=== PATIENT | female | born 1995 | race African-American/Black ===

== ENCOUNTER 2017-12-26 12:08 | Emergency (ER) | payer BC ==
[2017-12-26 12:26] VITALS: BP 137/93
[2017-12-26 13:46] LABS: Bacteria,Urine 1+ /HPF (Negative); Bilirubin,Urine NEG (Negative); Blood,Urine LG (Negative); Color,Urine Yellow (Yellow); Mucus,Urine 1+ /HPF; Protein,Urine <15 mg/dL mg/dL (Negative); Urobilinogen,Urine < 2.0 mg/dL (<2.0)
[2017-12-26 13:47] LABS: HCG Qualitative,Urine Negative (Negative)
[2017-12-26] MEDS ORDERED: ZOFRAN ODT PO ONE (14:34)
[2017-12-26] MEDS ORDERED: TYLENOL PO ONE (14:34)
[2017-12-26] MEDS ORDERED: MACROBID PO ONE (14:35)
[2017-12-26] MEDS ORDERED: ULTRAM PO ONE (14:36)
--- NOTE | 2017-12-26 14:41 | Emergency Department Report ---
ED Abdominal Pain HPI - General Chief Complaint: Abdominal Pain Stated Complaint: ABD VAG BLEED Time Seen by Provider: 12/26/17 14:23 Source: patient Mode of arrival: Ambulatory Limitations: No Limitations - History of Present Illness Initial Comments: Patient is a 22-year-old female who is presenting with 1 week of vaginal bleeding that was painless until this morning when she started getting some suprapubic discomfort. Patient states she vomited once this morning as well. Patient states is the first menses she's had since having a miscarriage several months ago. Patient states the pain is in the suprapubic region with no radiation and is a 8 out 10 in severity. Patient states there is no dysuria but there is some urinary frequency. Patient denies diarrhea cough cold congestion or fevers or chills. - Related Data Previous Rx's Medication Instructions Recorded Last Taken Type Ibuprofen [Motrin] 600 mg PO Q8H PRN #20 tablet 12/26/17 Unknown Rx Nitrofurantoin Monohyd/M-Cryst 100 mg PO BID #14 capsule 12/26/17 Unknown Rx [Macrobid 100 mg Capsule] Ondansetron [Zofran Odt] 4 mg PO Q8HR PRN #10 tab.rapdis 12/26/17 Unknown Rx traMADol [Ultram] 50 mg PO Q6HR PRN #10 tablet 12/26/17 Unknown Rx Allergies Allergy/AdvReac Type Severity Reaction Status Date / Time No Known Allergies Allergy Verified 12/26/17 12:21 ED Review of Systems ROS: Stated complaint: ABD VAG BLEED Other details as noted in HPI Comment: All other systems reviewed and negative ED Past Medical Hx - Past Medical History Previous Medical History?: No - Surgical History Past Surgical History?: Yes Additional Surgical History: c section - Social History Smoking Status: Never Smoker Substance Use Type: None - Medications Home Medications: Home Medications Medication Instructions Recorded Confirmed Last Taken Type Ibuprofen [Motrin] 600 mg PO Q8H PRN #20 tablet 12/26/17 Unknown Rx Nitrofurantoin Monohyd/M-Cryst 100 mg PO BID #14 capsule 12/26/17 Unknown Rx [Macrobid 100 mg Capsule] Ondansetron [Zofran Odt] 4 mg PO Q8HR PRN #10 tab.rapdis 12/26/17 Unknown Rx traMADol [Ultram] 50 mg PO Q6HR PRN #10 tablet 12/26/17 Unknown Rx ED Physical Exam - General Limitations: No Limitations General appearance: alert, in no apparent distress - Head Head exam: Present: atraumatic, normocephalic - Eye Eye exam: Present: normal appearance - ENT ENT exam: Present: mucous membranes moist - Neck Neck exam: Present: normal inspection - Respiratory Respiratory exam: Present: normal lung sounds bilaterally. Absent: respiratory distress - Cardiovascular Cardiovascular Exam: Present: regular rate, normal rhythm. Absent: systolic murmur, diastolic murmur, rubs, gallop - GI/Abdominal GI/Abdominal exam: Present: soft, tenderness (suprapubic), normal bowel sounds. Absent: distended, guarding, rebound, rigid - Extremities Exam Extremities exam: Present: normal inspection - Back Exam Back exam: Present: normal inspection - Neurological Exam Neurological exam: Present: alert, oriented X3 - Psychiatric Psychiatric exam: Present: normal affect, normal mood - Skin Skin exam: Present: warm, dry, intact, normal color. Absent: rash ED Course Vital Signs 12/26/17 12:21 Temperature 98.6 F Pulse Rate 93 H Respiratory 16 Rate Blood Pressure 137/93 O2 Sat by Pulse 96 Oximetry ED Medical Decision Making - Lab Data Lab Results 12/26/17 Range/Units 13:25 Urine Color Yellow (Yellow) Urine Turbidity Clear (Clear) Urine pH 7.0 (5.0-7.0) Ur Specific [place] 1.019 (1.003-1.030) Urine Protein <15 mg/dl (Negative) mg/dL Urine Glucose (UA) Neg (Negative) mg/dL Urine Ketones Neg (Negative) mg/dL Urine Blood Lg (Negative) Urine Nitrite Neg (Negative) Urine Bilirubin Neg (Negative) Urine Urobilinogen < 2.0 (<2.0) mg/dL Ur Leukocyte Esterase Mod (Negative) Urine WBC (Auto) 10.0 H (0.0-6.0) /HPF Urine RBC (Auto) 16.0 (0.0-6.0) /HPF U Epithel Cells (Auto) 10.0 (0-13.0) /HPF Urine Bacteria (Auto) 1+ (Negative) /HPF Urine Mucus 1+ /HPF Urine Yeast (Budding) Few /HPF Urine HCG, Qual Negative (Negative) - Medical Decision Making Patient's increased pain is most likely coming from a urinary tract infection is present on her urinalysis patient will be discharged home. Patient will be started on antibiotics and meds for symptomatic relief of her pain Critical care attestation.: If time is entered above; I have spent that time in minutes in the direct care of this critically ill patient, excluding procedure time. ED Disposition Clinical Impression: Dysmenorrhea Acute cystitis Qualifiers: Hematuria presence: with hematuria Qualified Code(s): N30.01 - Acute cystitis with hematuria Disposition: TO HOME OR SELFCARE Is pt being admited?: No Does the pt Need Aspirin: No Condition: Stable Instructions: Urinary Tract Infection in Women (ED) Referrals: PRIMARY CARE, [Primary Care Provider] - 3-5 Days
== END 2017-12-26 15:09 | disposition home or self-care (01) ==
LOC: ED 12:08
DX: N30.01 Acute cystitis with hematuria (principal); N94.6 Dysmenorrhea, unspecified
CPT/HCPCS: 81001; 81025; 99283; Q0162

== ENCOUNTER 2018-08-08 08:29 | Outpatient (CLI) | payer OTHER ==
[2018-08-08] MEDS ORDERED: LACTATED RINGERS 1,000 ML IV ONE (09:05)
[2018-08-08] MEDS ORDERED: LACTATED RINGERS 1,000 ML IV SCH (10:00)
[2018-08-08 10:33] LABS: Bacteria,Urine 2+ /HPF (Negative); Bilirubin,Urine NEG (Negative); Blood,Urine LG (Negative); Color,Urine Yellow (Yellow); Mucus,Urine FEW /HPF; Protein,Urine <15 mg/dL mg/dL (Negative); Urobilinogen,Urine < 2.0 mg/dL (<2.0)
[2018-08-08] MEDS ORDERED: BRETHINE SUB-Q ONE (11:00)
--- NOTE | 2018-08-08 12:20 | Ultrasound Report ---
FINAL REPORT EXAM: US OB FOLLOW UP HISTORY: vaginal bleeding TECHNIQUE: Obstetrical ultrasound was performed. PRIORS: None. FINDINGS: position is cephalic. Placental location is posterior. Negative for placenta previa. Negative for placental abruption. Amniotic fluid volume is normal. The amniotic fluid index is 14.6 cm. cardiac activity is identified, measured at 141 beats per minute. Measurements: BPD: 6.55 cm-26 weeks 3 days +/-15 days HC: 24.21 cm-26 weeks 2 days +/-14 days AC: 23.35 cm-27 weeks 5 days +/-15 days FL: 5.16 cm-27 weeks 4 days +/-15 days HC/AC: 1.04 (1.04-1.22) Avg age by US: 27 weeks 0 days which corresponds to LENNY of 11/07/2018. Age by provided LMP/LENNY of 02/11/2018 and 11/18/2018 is 25 weeks 3 days EFW: 1073 g The cervical canal is dilated to diameter of about 4 cm. Findings are compatible with marked cervical funneling A complete survey of anatomy is not performed. IMPRESSION: There is a single live intrauterine with current measurements corresponding to gestational age of 27 weeks 0 days and LENNY of 11/07/2018. Marked cervical funneling. Telecommunication Equipment Repairer Jose was informed of findings on 08/08/2018 at 2:15 p.m. EST.
--- NOTE | 2018-08-08 12:32 | Event Note ---
Date: 08/08/18 given report on pt and US findings. Will allow d/c home today Appt made for Friday08-11-18 for OB visit with US. Pt given very specific instructions: hydration, complete pelvic rest, nothing in the vagina. Call with any pain, bleeding or leaking of fluid. All questions addressed. Pt given card with appt date and time.
[2018-08-08 12:40] VITALS: BP 107/55
== END 2018-08-08 12:45 | disposition home or self-care (01) ==
LOC: TRG 08:29
PROVIDERS: ATTEND Obstetrics & Gynecology
DX: O47.02 False labor before 37 completed weeks of gestation, second trimester (principal); O46.8X2 Other antepartum hemorrhage, second trimester; O26.892 Other specified pregnancy related conditions, second trimester; R10.9 Unspecified abdominal pain; O62.4 Hypertonic, incoordinate, and prolonged uterine contractions; Z3A.25 25 weeks gestation of pregnancy
CPT/HCPCS: 59025; 76816; 81001; 96360; 96361; 96372; J3105; J7120

== ENCOUNTER 2018-08-09 15:24 | Inpatient (IN) | payer OTHER ==
[2018-08-09] MEDS ORDERED: LACTATED RINGERS 1,000 ML IV ONE (15:38)
[2018-08-09] MEDS ORDERED: CELESTONE SOLUSPAN IM SCH (16:00)
[2018-08-09] MEDS ORDERED: COLACE PO PRN (16:35)
[2018-08-09] MEDS ORDERED: TYLENOL PO PRN (16:35)
[2018-08-09] MEDS ORDERED: MAGNESIUM SULFATE 4GM/100ML 4 GM/100 ML BAG IV ONE (16:44)
--- NOTE | 2018-08-09 16:48 | History and Physical Report ---
History of Present Illness Date of examination: 08/09/18 (pt presents again today with c/o pain and pressure) History of present illness: EDC Confirmation: 11/18/2018 Gestational Age: 6 6/7 weeks Past History : 4 Term Births: 1 Premature Births: 0 Living Children: 1 Para: 1 Mult. Births: 0 Prev : 1 Prev. attempt? 0 Aborta: 2 Elect. Ab: 1 Spont. Ab: 1 Ectopics: 0 # 1 Delivery date: 2013 Weeks Gestation: term Delivery type: Anesthesia type: epidural Delivery location: [facility] Infant Sex: Female weight: 8-11 Comments: BREECH; Severe ileus postop Had NG tube for a while # 2 Delivery date: 2012 Weeks Gestation: 3-4 Delivery type: EAB Comments: pt states it was too soon after c/s # 3 Delivery date: 2018 Weeks Gestation: 9 Delivery type: SAB Comments: went for MO US and there was not a HB Past Medical History: Negative Past Medical History Past Surgical History: Past Medical History Surgery (Non-it service manager): Abnormal PAP: negative KULWANT Exposure: negative Infertility: negative Uterine Anomaly: negative Uterine Surgery (not C/S): negative Other Gynecologic Problems: negative Social Hx: Patient is single Smoking History: Patient has never smoked. Infection History Hx of STD: none HIV Risk Eval: low risk Hepatitis B Risk Eval: low risk Personal hx. of genital herpes: no Partner hx. of genital herpes: no Varicella/Chicken Pox Status: Previous Disease TB Risk: no Genetic History Congenital Heart Defect: Mom: no Dad: no Jill Disease: Mom: no Dad: no Thalassemia Mom: no Dad: no Neural Tube Defect Mom: no Dad: no Down's Syndrome Mom: no Dad: no Conor-Sachs Mom: no Dad: no Sickle Cell Disease/Trait Mom: no Dad: no Hemophilia Mom: no Dad: no Muscular Dystrophy Mom: no Dad: no Cystic Fibrosis Mom: no Dad: no [place] Chorea Mom: no Dad: no Mental Retardation Mom: no Dad: no Fragile X Mom: no Dad: no Other Genetic/Chromosomal Disorder Mom: no Dad: no Child w/other defect Mom: no Dad: no Enviromental Exposures Xray Exposure: no Medication, drug, or alcohol use since LMP: no Chemical/Other Exposure: no Exposure to Cat Liter: no Hx of Parvovirus (Fifth Disease): no Occupational Exposure to Children: none Active Medications (reviewed today): None Current Allergies (reviewed today): No known allergies Past History - Obstetrical History Expected Date of Delivery: 11/18/18 Actual Gestation: 25 Week(s) 4 Day(s) : 4 Para: 1 Hx # Term Pregnancies: 1 ( section) Number of Pregnancies: 0 Spontaneous Abortions: 1 Induced : 1 Number of Living Children: 1 Medications and Allergies Allergies Allergy/AdvReac Type Severity Reaction Status Date / Time No Known Allergies Allergy Verified 12/26/17 12:21 Home Medications Medication Instructions Recorded Confirmed Last Taken Type No Known Home Medications [No 08/09/18 08/09/18 Unknown History Reported Home Medications] Active Meds: Active Medications Betamethasone Acet/Betameth SodPhos (Celestone Soluspan) 12 mg IM Q24HR POPPY Stop: 08/10/18 10:01 Last Admin: 08/09/18 16:17 Dose: 12 mg Documented by: Lactated Ringer's (Lactated Ringers) 1,000 mls @ 125 mls/hr IV DIRECT POPPY Lactated Ringer's (Lactated Ringers) 1,000 mls @ 999 mls/hr IV BOLUS ONE Stop: 08/09/18 16:38 Last Admin: 08/09/18 16:00 Dose: 999 mls/hr Documented by: - Vital Signs Vital signs: Vital Signs Pulse BP 120 H 114/67 08/09/18 15:44 08/09/18 15:44 Temp Pulse Resp BP Pulse Ox 120 H 114/67 08/09/18 15:44 08/09/18 15:44 - Physical Exam Breasts: Positive: deferred Cardiovascular: Regular rate, Normal S1, Normal S2 Lungs: Positive: Clear to auscultation, Normal air movement Abdomen: Positive: normal appearance, soft, normal bowel sounds. Negative: distention, tenderness Genitourinary (Female): Positive: normal external genitalia, normal perenium Vulva: both: normal Vagina: Positive: normal moisture. Negative: discharge Cervix: Negative: lesion, discharge Uterus: Positive: normal size, normal contour Adnexa: both: normal Anus/Rectum: Positive: normal perianal skin, heme negative. Negative: rectal mass, hemorrhoids Extremities: Positive: edema Deep Tendon Reflex Grade: Normal +2 - Obstetrical FHR: category 1 Uterine Contraction Monitor Mode: External Cervical Dilatation: 0.5 (spotting noted) Cervical Effacement Percentage: 50 station: -4 Uterine Contraction Pattern: Irregular Uterine Tone Measurement Phase: Resting Uterine Contraction Intensity: Mild Results Result Diagrams: 08/09/18 17:25 All other labs normal. HBsAg Screen Negative Negative *1 RPR Non Reactive Non Reactive *2 Rubella Antibodies, IgG 2.09 index Immune >0.99 *3 Non-immune <0.90 Equivocal 0.90 - 0.99 Immune >0.99 ABO Grouping O *4 Rh Factor Positive *5 Please note: Prior records for this patient's ABO / Rh type are not available for additional verification. Antibody Screen Negative Negative *6 WBC [H] 11.1 x10E3/uL 3.4-10.8 *7 RBC 4.30 x10E6/uL 3.77-5.28 *8 Hemoglobin 12.2 g/dL 11.1-15.9 *9 Hematocrit 36.9 % 34.0-46.6 *10 MCV 86 fL 79-97 *11 MCH 28.4 pg 26.6-33.0 *12 MCHC 33.1 g/dL 31.5-35.7 *13 RDW 14.9 % 12.3-15.4 *14 Platelets 341 x10E3/uL 150-379 *15 Neutrophils 74 % Not Estab. *16 Lymphs 21 % Not Estab. *17 Monocytes 4 % Not Estab. *18 Eos 1 % Not Estab. *19 Basos 0 % Not Estab. *20 ! Immature Cells <No Reported Value> *21 Neutrophils (Absolute) [H] 8.2 x10E3/uL 1.4-7.0 *22 Lymphs (Absolute) 2.3 x10E3/uL 0.7-3.1 *23 Monocytes(Absolute) 0.4 x10E3/uL 0.1-0.9 *24 Eos (Absolute) 0.1 x10E3/uL 0.0-0.4 *25 Baso (Absolute) 0.0 x10E3/uL 0.0-0.2 *26 ! Immature Granulocytes 0 % Not Estab. *27 ! Immature Grans (Abs) 0.0 x10E3/uL 0.0-0.1 *28 ! NRBC <No Reported Value> *29 Hematology Comments: <No Reported Value> *30 Tests: (2) Panel [id number] ([id number]) HIV Screen 4th Generation wRfx Non Reactive Non Reactive *31 Tests: (3) HCV Ab w/Rflx to Verification ([id number]) ! HCV Ab 0.1 s/co ratio 0.0-0.9 *32 Tests: (4) Comment: ([id number]) ! Comment: SPR[facility] *33 Non reactive HCV antibody screen is consistent with no HCV infection, unless recent infection is suspected or other evidence exists to indicate HCV infection. Tests: (5) Urine Culture, Routine ([id number]) Urine Culture, Routine Final report *34 Assessment and Plan Consulted with [facility], [place] for neuro protection, AMFM and NICU consulted. Pt agrees with plan
[2018-08-09] MEDS ORDERED: MAGNESIUM SULFATE 40GM/1000ML 40 GM/1,000 ML BAG IV ONE (16:50)
[2018-08-09] MEDS ORDERED: MAGNESIUM SULFATE 40GM/1000ML 40 GM/1,000 ML BAG IV SCH (17:00)
[2018-08-09] MEDS ORDERED: LACTATED RINGERS 1,000 ML IV SCH ×2 (17:00→19:00)
[2018-08-09 18:01] LABS: Basophils % (Auto) 0.2 % (0.0-1.8); Eosinophils # (Auto) 0.1 K/mm3 (0.0-0.4); Eosinophils % (Auto) 0.3 % (0.0-4.3); Hematocrit 36.3 % (30.3-42.9); Hemoglobin 12.1 gm/dl (10.1-14.3); Lymphocytes % (Auto) 10.3 % (13.4-35.0); Mean Corpuscular HGB Conc 33 % (30-34); Mean Corpuscular Volume 86 fl (79-97); Monocytes # (Auto) 1.1 K/mm3 (0.0-0.8); Monocytes % (Auto) 5.5 % (0.0-7.3); Platelet Count 359 K/mm3 (140-440); Red Blood Count 4.21 M/mm3 (3.65-5.03)
[2018-08-09 18:13] LABS: Bilirubin,Urine NEG (Negative); Blood,Urine NEG (Negative); Color,Urine Straw (Yellow); Protein,Urine <15 mg/dL mg/dL (Negative); Urobilinogen,Urine < 2.0 mg/dL (<2.0)
[2018-08-09] MEDS ORDERED: REGLAN IV ONE (18:29)
[2018-08-09] MEDS ORDERED: BICITRA PO ONE (18:29)
[2018-08-09] MEDS ORDERED: PEPCID IV ONE ×2 (18:29→18:39)
--- NOTE | 2018-08-09 18:29 | Progress Note ---
Assessment and Plan Spoke with Dr.Youngblood Bonds pt for repeat section NICU spoke with pt Consent signed. Orders in EMR Subjective - Subjective Date of service: 08/09/18 (pt c/o worsening pain Q 5 min) Interval history: EDC Confirmation: 11/18/2018 Gestational Age: 6 6/7 weeks Past History : 4 Term Births: 1 Premature Births: 0 Living Children: 1 Para: 1 Mult. Births: 0 Prev : 1 Prev. attempt? 0 Aborta: 2 Elect. Ab: 1 Spont. Ab: 1 Ectopics: 0 # 1 Delivery date: 2013 Weeks Gestation: term Delivery type: Anesthesia type: epidural Delivery location: [facility] Sex: Female weight: 8-11 Comments: BREECH; Severe ileus postop Had NG tube for a while # 2 Delivery date: 2012 Weeks Gestation: 3-4 Delivery type: EAB Comments: pt states it was too soon after c/s # 3 Delivery date: 2018 Weeks Gestation: 9 Delivery type: SAB Comments: went for [place] US and there was not a HB Past Medical History: Negative Past Medical History Past Surgical History: Past Medical History Surgery (Non-form coverer): Abnormal PAP: negative KULWANT Exposure: negative Infertility: negative Uterine Anomaly: negative Uterine Surgery (not C/S): negative Other Gynecologic Problems: negative Social Hx: Patient is single Smoking History: Patient has never smoked. Infection History Hx of STD: none HIV Risk Eval: low risk Hepatitis B Risk Eval: low risk Personal hx. of genital herpes: no Partner hx. of genital herpes: no Varicella/Chicken Pox Status: Previous Disease TB Risk: no Genetic History Congenital Heart Defect: Mom: no Dad: no Jill Disease: Mom: no Dad: no Thalassemia Mom: no Dad: no Neural Tube Defect Mom: no Dad: no Down's Syndrome Mom: no Dad: no Conor-Sachs Mom: no Dad: no Sickle Cell Disease/Trait Mom: no Dad: no Hemophilia Mom: no Dad: no Muscular Dystrophy Mom: no Dad: no Cystic Fibrosis Mom: no Dad: no [place] Chorea Mom: no Dad: no Mental Retardation Mom: no Dad: no Fragile X Mom: no Dad: no Other Genetic/Chromosomal Disorder Mom: no Dad: no Child w/other defect Mom: no Dad: no Enviromental Exposures Xray Exposure: no Medication, drug, or alcohol use since LMP: no Chemical/Other Exposure: no Exposure to Cat Liter: no Hx of Parvovirus (Fifth Disease): no Occupational Exposure to Children: none Active Medications (reviewed today): None Current Allergies (reviewed today): No known allergies Patient reports: contractions Objective - Vital Signs Vital Signs: Vital Signs - 12hr 08/09/18 08/09/18 08/09/18 15:44 16:57 17:02 Temperature Pulse Rate 120 H 117 H 111 H Respiratory Rate Blood Pressure 114/67 O2 Sat by Pulse 98 97 Oximetry 08/09/18 08/09/18 08/09/18 17:04 17:07 17:08 Temperature 98.3 F Pulse Rate 117 H 116 H 120 H Respiratory 20 Rate Blood Pressure 96/55 O2 Sat by Pulse 94 97 Oximetry 08/09/18 08/09/18 08/09/18 17:12 17:17 17:20 Temperature Pulse Rate 114 H 117 H 108 H Respiratory Rate Blood Pressure 92/56 O2 Sat by Pulse 98 98 Oximetry 08/09/18 08/09/18 08/09/18 17:22 17:27 17:32 Temperature Pulse Rate 122 H 117 H 120 H Respiratory Rate Blood Pressure O2 Sat by Pulse 98 98 98 Oximetry 08/09/18 08/09/18 08/09/18 17:33 17:37 17:42 Temperature Pulse Rate 118 H 122 H 121 H Respiratory Rate Blood Pressure 90/50 O2 Sat by Pulse 98 98 Oximetry 08/09/18 08/09/18 08/09/18 17:47 17:48 17:52 Temperature Pulse Rate 122 H 121 H 123 H Respiratory Rate Blood Pressure 90/54 O2 Sat by Pulse 98 98 Oximetry 08/09/18 08/09/18 08/09/18 17:57 18:02 18:05 Temperature Pulse Rate 114 H 123 H 118 H Respiratory Rate Blood Pressure 99/55 O2 Sat by Pulse 99 98 Oximetry 08/09/18 08/09/18 08/09/18 18:07 18:12 18:17 Temperature Pulse Rate 125 H 125 H 123 H Respiratory Rate Blood Pressure O2 Sat by Pulse 96 98 99 Oximetry 08/09/18 08/09/18 18:20 18:22 Temperature Pulse Rate 133 H 138 H Respiratory Rate Blood Pressure 115/66 O2 Sat by Pulse 98 Oximetry - Exam Breasts: deferred Cardiovascular: Regular rate Lungs: Clear to auscultation Abdomen: Present: normal appearance, soft. Absent: distention, tenderness Uterus: Present: normal FHR: auscultation normal, category 2 Uterine Contraction Monitor Mode: External Cervical Dilatation: 4 (leaking fluid) Cervical Effacement Percentage: 60 station: -4 Uterine Contraction Pattern: Regular Uterine Tone Measurement Phase: Resting Uterine Contraction Intensity: Moderate Extremities: edema Deep Tendon Reflex Grade: Normal +2 - Labs Labs: Abnormal Labs 08/09/18 08/09/18 17:25 17:25 WBC 19.4 H Lymph % (Auto) 10.3 L Bertie # 1.1 H Seg Neutrophils % 83.7 H Seg Neutrophils # 16.3 H Ur Specific [place] 1.002 L Laboratory Results - last 24 hr 08/09/18 08/09/18 17:25 17:25 WBC 19.4 H RBC 4.21 Hgb 12.1 Hct 36.3 MCV 86 MCH 29 MCHC 33 RDW 15.0 Plt Count 359 Lymph % (Auto) 10.3 L Bertie % (Auto) 5.5 Eos % (Auto) 0.3 Baso % (Auto) 0.2 Lymph # 2.0 Bertie # 1.1 H Eos # 0.1 Baso # 0.0 Seg Neutrophils % 83.7 H Seg Neutrophils # 16.3 H Urine Color Straw Urine Turbidity Clear Urine pH 6.0 Ur Specific [place] 1.002 L Urine Protein <15 mg/dl Urine Glucose (UA) Neg Urine Ketones 20 Urine Blood Neg Urine Nitrite Neg Urine Bilirubin Neg Urine Urobilinogen < 2.0 Ur Leukocyte Esterase Neg Urine WBC (Auto) 1.0 Urine RBC (Auto) 1.0
[2018-08-09] MEDS: LACTATED RINGERS 1,000 ML IV SCH ×2 (18:37→21:40)
[2018-08-09] MEDS ORDERED: BICITRA ONE (18:39)
[2018-08-09] MEDS ORDERED: ANCEF/STERILE WATER 2 GM/20 ML 2 GM/20 ML SYRINGE IV NR (19:00)
[2018-08-09] MEDS ORDERED: PITOCin/NS 20 UNIT/1000ML DRIP 20 UNITS/1,000 ML BAG IV SCH ×2 (19:00→22:30)
--- NOTE | 2018-08-09 19:05 | Anesthesia Consultation ---
Anesthesia Consult and Med Hx Date of service: 08/09/18 - Airway Anesthetic Teeth Evaluation: Good ROM Head & Neck: Adequate Mental/Hyoid Distance: Adequate Mallampati Class: Class II Intubation Access Assessment: Probably Good - Pre-Operative Health Status ASA Pre-Surgery Classification: ASA3 Proposed Anesthetic Plan: Epidural, Spinal - Pulmonary Hx Asthma: No COPD: No Hx Pneumonia: No - Cardiovascular System Hx Hypertension: No - Central Nervous System Hx Seizures: No Hx Psychiatric Problems: No - Endocrine Hx Renal Disease: No Hx End Stage Renal Disease: No Hx Hypothyroidism: No Hx Hyperthyroidism: No - Hematic Hx Anemia: Yes Hx Sickle Cell Disease: No - Other Systems Hx Alcohol Use: No Hx Obesity: Yes (BMI 40) - Additional Comments Anesthesia Medical History Comments: Previous c/s, 25 weeks in labor
[2018-08-09] MEDS ORDERED: TORADOL IV PRN (19:06)
[2018-08-09] MEDS ORDERED: NARCAN 0.4 MG/1 ML IV PRN ×2 (19:06→22:30)
[2018-08-09] MEDS ORDERED: BENADRYL IV PRN (19:06)
[2018-08-09] MEDS ORDERED: PHENERGAN PO PRN (19:06)
[2018-08-09] MEDS ORDERED: ZOFRAN IV PRN ×2 (19:06→22:30)
[2018-08-09] MEDS ORDERED: DILAUDID IV PRN ×2 (19:06)
[2018-08-09] MEDS ORDERED: PHENERGAN PR PRN (19:06)
--- NOTE | 2018-08-09 19:06 | Anesthesia Day of Surgery ---
Anesthesia Day of Surgery - Day of Surgery Patient Examined: Yes Patient H&P Reviewed: Yes Patient is NPO: Yes
[2018-08-09] MEDS ORDERED: NACL 0.9% IR ONE (19:10)
[2018-08-09] MEDS ORDERED: SENSORCAINE/DEXTR 0.75-8.25% INFILTRATI ONE (19:22)
[2018-08-09] MEDS ORDERED: ANCEF/STERILE WATER 2 GM/20 ML IV ONE (19:35)
[2018-08-09] MEDS ORDERED: NEO SYNEPHRINE/NS Syringe(OR USE) IV ONE (19:47)
[2018-08-09] MEDS ORDERED: XYLOCAINE MPF 2% ONE (19:58)
[2018-08-09] MEDS ORDERED: ASTRAMORPH PF 10MG/10ML ONE (19:59)
[2018-08-09] MEDS ORDERED: SODIUM CHLORIDE FLUSH SYRINGE 10 ML IV NR (20:00)
[2018-08-09] MEDS ORDERED: WATER FOR IRRIG STERILE IR ONE (20:05)
--- NOTE | 2018-08-09 20:57 | Operative Report ---
Operative Report Operative Report: Date of procedure: 08/09/2018 Pre-operative diagnosis: Intrauterine at 25 weeks labor, fail ed tocolysis and premature rupture of membranes. Previous section Post-operative diagnosis: Same Procedure name(s): Classical section Surgeon: Alex Reyna MD Screen Examiner: Ruby Garcia, certified nurse business objects analyst Anesthesia: Spinal EBL: 900 mL Complications: None Findings: Normal uterus tubes and ovaries bilaterally. Underdeveloped lower uterine segment. Unable to identify presenting part. Male infant Apgars and weight not given by NICU at time of this dictation Specimen(s): Placenta Procedure: The patient was brought to the operating room. A spinal was placed without any complications. She was then placed in left lateral tilt. Prepped and draped in the usual sterile manner. After testing for adequate anesthesia level, a Pfannenstiel incision was made through her previous scar. This incision was taken down to the fascia. The fascia was then nicked in the midline. This incision was extended out laterally with Walters scissors. The fascia was then sharply and bluntly from the underlying rectus muscles. The rectus muscles were bluntly and sharply . The peritoneum was then entered with the cnc laser operator's fingers. This incision was spread vertically with care not to damage the bladder below. Bladder blade was placed. The bladder flap was then formed sharply and bluntly with Metzenbaum scissors. The uterine findings as noted as above and decision was made to perform a classical section. A vertical incision was made midline and taken to the lower uterine segment. This incision was extended with the operators fingers. The amniotic sac was then entered bluntly with the cnc laser operator's fingers. The was delivered from the vertex position. Bulb suction on the mother's abdomen. Cord was double clamped and cut. The was then passed to the nursery personnel who were in attendance. The placenta was then bluntly removed. The uterus was then externalized and wiped clean the remaining products. The uterine incision was closed in layers. The first incision was closed in a locking manner using 0 Vicryl. This was followed by imbricating stitch also with 0 Vicryl. This closure was hemostatic. The bladder flap was copiously irrigated and found to be hemostatic. The pelvis was copiously irrigated and found to be hemostatic. The uterus was then placed back to the patient's abdomen. Surgicel was placed along the uterine incision. The retractors were removed. The rectus muscles were inspected and found to be hemostatic. The fascia was then closed in a running manner using 0 Vicryl. This incision was hemostatic irrigation Bovie. The skin was reapproximated with 4-0 Vicryl subcuticularly. The patient tolerated procedure well. Her urine was clear. The infant was admitted to the intensive care nursery. The patient was accompanied to recovery room in good condition. Instrument count correct X 3.
[2018-08-09] MEDS ORDERED: TUCKS PAD TP PRN (22:30)
[2018-08-09] MEDS ORDERED: LANSINOH TP PRN (22:30)
[2018-08-09] MEDS ORDERED: MILK OF MAGNESIA PO PRN (22:30)
[2018-08-09] MEDS ORDERED: MYLICON PO PRN (22:30)
[2018-08-09] MEDS ORDERED: SODIUM CHLORIDE FLUSH SYRINGE 10 ML IV PRN (22:30)
[2018-08-09] MEDS: TORADOL IV SCH (23:35)
[2018-08-10] MEDS: D5LR 1,000 ML IV SCH ×2 (03:46→11:36)
[2018-08-10] MEDS: ANCEF/NS 1 GM/50 ML 1 GM/50 ML BAG IV SCH ×2 (03:46→11:36)
[2018-08-10] MEDS: NORCO 5/325 PO PRN ×3 (03:47→22:23)
[2018-08-10] MEDS: TORADOL IV SCH ×3 (05:41→17:11)
--- NOTE | 2018-08-10 08:27 | Progress Note ---
Assessment and Plan POD 1 s/p repeat c/s for labor. Patient resting comfortably in bed, denies any complaints at this time. Reports pain is well managed with medications. Fundus is firm, ML, bleeding is scant. Abdominal incision is still dressed at this time, CDI, will discontinue with shower today. VSSAF, apical HR 89 at current. Pt encouraged to increase water intake and ambulate today. Pt voices desire to pump breastmilk for in NICU, RN notified, and will obtain pump and supplies for patient. Continue current post-op pathway. Subjective - Subjective Date of service: 08/10/18 Principal diagnosis: POD 1 s/p repeat c/s labor Patient reports: appetite normal, voiding normally, pain well controlled : in NICU Objective - Vital Signs Latest vital signs: Vital Signs Temp Pulse Resp BP BP Pulse Ox 08/10/18 04:41 98.5 F 99 H 18 94/62 08/09/18 23:00 97.9 F 119 H 24 104/69 97 08/09/18 21:20 97.9 F 08/09/18 20:50 98.0 F 08/09/18 19:01 128 H 97 08/09/18 18:56 131 H 98 08/09/18 18:51 131 H 97 08/09/18 18:37 129 H 97 08/09/18 18:33 129 H 105/69 08/09/18 18:32 133 H 98 08/09/18 18:30 133 H 93 08/09/18 18:27 143 H 100 08/09/18 18:22 138 H 98 08/09/18 18:20 133 H 115/66 08/09/18 18:17 123 H 99 08/09/18 18:12 125 H 98 08/09/18 18:07 125 H 96 08/09/18 18:05 118 H 99/55 08/09/18 18:02 123 H 98 08/09/18 17:57 114 H 99 08/09/18 17:52 123 H 98 08/09/18 17:48 121 H 90/54 08/09/18 17:47 122 H 98 08/09/18 17:42 121 H 98 08/09/18 17:37 122 H 98 08/09/18 17:33 118 H 90/50 08/09/18 17:32 120 H 98 08/09/18 17:27 117 H 98 08/09/18 17:22 122 H 98 08/09/18 17:20 108 H 92/56 08/09/18 17:17 117 H 98 08/09/18 17:12 114 H 98 08/09/18 17:08 98.3 F 120 H 20 08/09/18 17:07 116 H 97 08/09/18 17:04 117 H 96/55 94 08/09/18 17:02 111 H 97 08/09/18 16:57 117 H 98 08/09/18 15:44 120 H 114/67 Intake and Output 08/09/18 08/10/18 08/10/18 23:59 07:59 15:59 Intake Total 2381.25 240 Output Total 1600 800 Balance 781.25 -560 Intake: IV 2381.25 Lactated Ringers 1,000 ml 381.25 @ 125 mls/hr IV DIRECT POPPY Rx#:[id number] Intake, Free Water 240 Output: Urine 1600 800 Indwelling Catheter 800 Void 500 800 Other: Total, Output Amount 500 800 # Voids Void 1 Weight 95.708 kg Estimated Blood Loss 900 - Exam Breasts: Present: normal Cardiovascular: Present: Regular rate, Normal S1, Normal S2 Lungs: Present: Clear to auscultation Abdomen: Present: normal appearance, soft Uterus: Present: normal, firm Extremities: Present: normal Incision: Present: dressed (dressing in place, C/D/I. Will d/c dressing with shower today. ) - Labs Labs: Abnormal lab results 08/09/18 08/09/18 Range/Units 17:25 17:25 WBC 19.4 H (4.5-11.0) K/mm3 Lymph % (Auto) 10.3 L (13.4-35.0) % [place] # 1.1 H (0.0-0.8) K/mm3 Seg Neutrophils % 83.7 H (40.0-70.0) % Seg Neutrophils # 16.3 H (1.8-7.7) K/mm3 Ur Specific [place] 1.002 L (1.003-1.030)
[2018-08-10 08:49] LABS: Hemoglobin 10.2 gm/dl (10.1-14.3)
[2018-08-10] MEDS ORDERED: PRENATAL VITAMIN PO SCH (10:00)
[2018-08-10] MEDS: IBUPROFEN PO PRN ×2 (17:11→22:24)
[2018-08-11] MEDS: NORCO 5/325 PO PRN ×2 (04:29→22:00)
[2018-08-11] MEDS: IBUPROFEN PO PRN ×3 (04:30→22:00)
--- NOTE | 2018-08-11 06:48 | Progress Note ---
Assessment and Plan - Patient Problems (1) delivery delivered Onset Date: ~08/09/18 Current Visit: Yes Status: Acute Plan to address problem: pt w/o complaint Encouraged to ambulate, shower, be OOB for meals VSS FF below umb Lochia small Incision D&I H&H stable Asymptomatic anemia Doing well s/p c/s P: continue pathway Advance diet and activity as tolerated. Subjective - Subjective Date of service: 08/11/18 (pt w/o complaint) Principal diagnosis: POD 1 s/p repeat c/s labor Interval history: EDC Confirmation: 11/18/2018 Gestational Age: 6 6/7 weeks Past History : 4 Term Births: 1 Premature Births: 0 Living Children: 1 Para: 1 Mult. Births: 0 Prev : 1 Prev. attempt? 0 Aborta: 2 Elect. Ab: 1 Spont. Ab: 1 Ectopics: 0 # 1 Delivery date: 2013 Weeks Gestation: term Delivery type: Anesthesia type: epidural Delivery location: [facility] Sex: Female weight: 8-11 Comments: BREECH; Severe ileus postop Had NG tube for a while # 2 Delivery date: 2012 Weeks Gestation: 3-4 Delivery type: EAB Comments: pt states it was too soon after c/s # 3 Delivery date: 2017 Weeks Gestation: 9 Delivery type: SAB Comments: went for [place] US and there was not a HB Past Medical History: Negative Past Medical History Past Surgical History: Past Medical History Surgery (Non-help desk specialist): Abnormal PAP: negative KULWANT Exposure: negative Infertility: negative Uterine Anomaly: negative Uterine Surgery (not C/S): negative Other Gynecologic Problems: negative Social Hx: Patient is single Smoking History: Patient has never smoked. Infection History Hx of STD: none HIV Risk Eval: low risk Hepatitis B Risk Eval: low risk Personal hx. of genital herpes: no Partner hx. of genital herpes: no Varicella/Chicken Pox Status: Previous Disease TB Risk: no Genetic History Congenital Heart Defect: Mom: no Dad: no Jill Disease: Mom: no Dad: no Thalassemia Mom: no Dad: no Neural Tube Defect Mom: no Dad: no Down's Syndrome Mom: no Dad: no Conor-Sachs Mom: no Dad: no Sickle Cell Disease/Trait Mom: no Dad: no Hemophilia Mom: no Dad: no Muscular Dystrophy Mom: no Dad: no Cystic Fibrosis Mom: no Dad: no Drew Chorea Mom: no Dad: no Mental Retardation Mom: no Dad: no Fragile X Mom: no Dad: no Other Genetic/Chromosomal Disorder Mom: no Dad: no Child w/other defect Mom: no Dad: no Enviromental Exposures Xray Exposure: no Medication, drug, or alcohol use since LMP: no Chemical/Other Exposure: no Exposure to Cat Liter: no Hx of Parvovirus (Fifth Disease): no Occupational Exposure to Children: none Active Medications (reviewed today): None Current Allergies (reviewed today): No known allergies Patient reports: appetite normal, voiding normally, pain well controlled, ambulating normally : in NICU Objective - Vital Signs Latest vital signs: Vital Signs Temp Pulse Resp BP BP Pulse Ox 08/11/18 00:00 98.6 F 74 18 108/71 08/10/18 17:26 108 H 20 104/68 98 08/10/18 17:11 20 08/10/18 16:35 98.1 F 115 H 28 H 111/68 94 08/10/18 12:12 97.3 F L 100 H 20 105/68 95 08/10/18 10:34 16 08/10/18 07:43 97.8 F 98 H 20 95/63 97 Intake and Output 08/10/18 08/10/18 08/11/18 14:59 22:59 06:59 Intake Total 6534.697 1681 240 Output Total 1000 Balance 785.979 6120 240 Intake: IV 313.989 3086 D5lr 1,000 ml @ 125 mls/ 239.368 3996 hr IV DIRECT POPPY Rx#: [id number] Oral 480 360 240 Intake, Free Water 300 Output: Urine 1000 Indwelling Catheter 700 Void 300 Other: Total, Intake Amount 360 360 240 Total, Output Amount 300 # Voids Void 1 1 - Exam Breasts: Present: normal Cardiovascular: Present: Regular rate Lungs: Present: Clear to auscultation Abdomen: Present: normal appearance, soft Vulva: both: normal Uterus: Present: normal, fundal height below umbilicus Extremities: Present: normal Deep Tendon Reflex Grade: Normal +2 Incision: Present: normal, dry, intact - Labs Labs: Abnormal lab results 08/10/18 Range/Units 08:40 Hct 30.0 L D (30.3-42.9) %
--- NOTE | 2018-08-12 08:05 | Discharge Summary ---
Providers - Providers Date of Admission: 08/09/18 16:45 Date of discharge: 08/12/18 Attending physician: REGI ARREGUIN 08/09/18 22:30 Consult to Java Web User Interface Developer [CONS] Routine Reason For Exam: Primary care physician: REGI ARREGUIN Hospitalization Reason for admission: labor Condition: Good Pertinent studies: postop H&H 10.2/30.0 Procedures: classical repeat c/s Hospital course: repeat c/s for labor @ 25 weeks. Uncomplicated postop course Disposition: DC-01 TO HOME OR SELFCARE - Discharge Diagnoses (1) delivery delivered Status: Acute Core Measure Documentation - Palliative Care Palliative Care/ Comfort Measures: Not Applicable - Core Measures Any of the following diagnoses?: none Exam - Constitutional Vitals: Temp Pulse Resp BP Pulse Ox 98.0 F 91 H 18 117/85 98 08/11/18 23:16 08/12/18 07:35 08/12/18 07:35 08/12/18 07:35 08/12/18 07:35 General appearance: Present: no acute distress, well-nourished - EENT Eyes: Present: PERRL ENT: hearing intact, clear oral mucosa - Neck Neck: Present: supple, normal ROM - Respiratory Respiratory effort: normal Respiratory: bilateral: CTA - Cardiovascular Heart Sounds: Present: S1 & S2. Absent: rub, click - Extremities Extremities: pulses symmetrical, No edema Peripheral Pulses: within normal limits - Abdominal General gastrointestinal: Present: soft, non-tender, non-distended, normal bowel sounds Female genitourinary: Present: normal - Integumentary Integumentary: Present: clear, warm, dry - Musculoskeletal Musculoskeletal: gait normal, strength equal bilaterally - Psychiatric Psychiatric: appropriate mood/affect, intact judgment & insight - Neurologic Neurologic: CNII-XII intact, moves all extremities - Additional findings Additional findings: lochia scant, fundus firm, incision D&I, pumping breastmilk for infant in NICU Plan Activity: advance as tolerated Diet: regular Wound: open to air, keep clean and dry Follow up with: RGEI ARREGUIN MD [Primary Care Provider] - 7 Days (Congratulations! Please call [phone] to schedule your incision check in 1 week. Call for any questions or concerns. ) Prescriptions: Ferrous Sulfate [Feosol 325 MG tab] 325 mg PO BID #60 tablet Ibuprofen [Motrin 800 MG tab] 800 mg PO Q6H PRN #30 tablet PRN Reason: Pain oxyCODONE /ACETAMINOPHEN [Percocet 5/325 mg] 1 - 2 tab PO Q4H PRN #30 tablet PRN Reason: Pain, Moderate
[2018-08-12] MEDS: NORCO 5/325 PO PRN ×2 (08:06→16:33)
[2018-08-12] MEDS: IBUPROFEN PO PRN ×2 (08:06→16:32)
[2018-08-12 16:24] VITALS: BP 126/84
--- NOTE | 2018-08-19 10:14 | Ultrasound Report ---
FINAL REPORT EXAM: US OB TRANSVAGINAL HISTORY: CERVICAL LENGTH CK TECHNIQUE: Limited ultrasound PRIORS: Ultrasound OB 08/08/2018 FINDINGS: LMP 02/11/2018 clinical Age: 25 w 4 d LMP EDC 11/18/2018 Presentation: Cephalic Activity: Monitored Cardiac motion: 144 BPM using M-mode doppler Amniotic Fluid Volume: Adequate CK 12.9 cm Cervical canal diameter: 2.3 cm in diameter with cervix appearing open. IMPRESSION: Single intrauterine viable with an approximate age of 25 weeks 4 days internal cervical os is open with diameter of the canal 2.3 cm.
--- NOTE | 2018-08-19 10:14 | Ultrasound Report ---
FINAL REPORT EXAM: US OB LIMITED HISTORY: CERVICAL LENGTH CK TECHNIQUE: Limited ultrasound PRIORS: Ultrasound OB 08/08/2018 FINDINGS: LMP 02/11/2018 clinical Age: 25 w 4 d LMP EDC 11/18/2018 Presentation: Cephalic Activity: Monitored Cardiac motion: 144 BPM using M-mode doppler Amniotic Fluid Volume: Adequate CK 12.9 cm Cervical canal diameter: 2.3 cm in diameter with cervix appearing open. IMPRESSION: Single intrauterine viable with an approximate age of 25 weeks 4 days internal cervical os is open with diameter of the canal 2.3 cm.
== END 2018-08-12 17:30 | disposition home or self-care (01) | DRG 786 ==
LOC: TRG 15:24 → OBSVTOIN 16:45 → LD 16:45 → OB 22:20
PROVIDERS: ADMIT Obstetrics & Gynecology; ATTEND Obstetrics & Gynecology
PROC: 10D00Z0 Extraction of Products of Conception, High, Open Approach (ICD-10-PCS; principal; 2018-08-09)
DX: O42.012 Preterm premature rupture of membranes, onset of labor within 24 hours of rupture, second trimester (principal); O60.12X0 Preterm labor second trimester with preterm delivery second trimester, not applicable or unspecified; D62 Acute posthemorrhagic anemia; O99.214 Obesity complicating childbirth; E66.9 Obesity, unspecified; Z3A.25 25 weeks gestation of pregnancy; O60.00 Preterm labor without delivery, unspecified trimester; Z37.0 Single live birth
CPT/HCPCS: 36415; 59025; 76815; 76816; 76817; 81001; 85014; 85018; 85025; 86850; 86900; 86901; 88305; 96360; 96361; 96372; G0378; A6250; C1765; J0690; J0702; J1885; J2274; J2370; J2590; J2765; J3105; J3475; J7120; J7121

== ENCOUNTER 2019-04-22 21:20 | Emergency (ER) | payer OTHER ==
[2019-04-22 21:31] VITALS: BP 159/91
--- NOTE | 2019-04-22 21:34 | Emergency Department Report ---
ED ENT HPI - General Chief complaint: Sore Throat Stated complaint: SORE THROAT Time Seen by Provider: 04/22/19 21:30 Source: patient Mode of arrival: Ambulatory Limitations: No Limitations - History of Present Illness Initial comments: This is a 23-year-old female nontoxic well in appearance with no signs of distress presents to the ED with complaint of sore throat x5 days. Patient denies any drooling or hoarseness. Patient denies any other symptoms. Denies any fever, chills, headache, nausea, vomiting, chest pain or SOB. Denies any other complaints. Patient stated allergies to morphine. MD complaint: sore throat -: days(s) Location: throat Severity: mild Severity scale (0 -10): 8 Quality: aching Consistency: constant Improves with: none Worsens with: swallowing Associated Symptoms: pain with swallowing, sore throat. denies: fever, cough, gum swelling, toothache, tinnitus, hearing loss, discharge from ear, rhinorrhea - Related Data Previous Rx's Medication Instructions Recorded Last Taken Type Ferrous Sulfate [Feosol 325 MG tab] 325 mg PO BID #60 tablet 08/09/18 Unknown Rx Ibuprofen [Motrin 800 MG tab] 800 mg PO Q6H PRN #30 tablet 08/09/18 Unknown Rx oxyCODONE /ACETAMINOPHEN [Percocet 1 - 2 tab PO Q4H PRN #30 tablet 08/09/18 Unknown Rx 5/325 mg] Amoxicillin [Amoxicillin TAB] 875 mg PO BID #20 tablet 04/22/19 Unknown Rx Ibuprofen [Motrin] 600 mg PO Q8H PRN #20 tablet 04/22/19 Unknown Rx Nystas/Diphen/Xyl Visc/Mylanta 15 ml MM Q6H PRN 5 Days ml 04/22/19 Unknown Rx [Magic Mouthwash] Allergies Allergy/AdvReac Type Severity Reaction Status Date / Time No Known Allergies Allergy Verified 12/26/17 12:21 ED Dental HPI - General Chief complaint: Sore Throat Stated complaint: SORE THROAT Time Seen by Provider: 04/22/19 21:30 Source: patient Mode of arrival: Ambulatory Limitations: No Limitations - Related Data Previous Rx's Medication Instructions Recorded Last Taken Type Ferrous Sulfate [Feosol 325 MG tab] 325 mg PO BID #60 tablet 08/09/18 Unknown Rx Ibuprofen [Motrin 800 MG tab] 800 mg PO Q6H PRN #30 tablet 08/09/18 Unknown Rx oxyCODONE /ACETAMINOPHEN [Percocet 1 - 2 tab PO Q4H PRN #30 tablet 08/09/18 Unknown Rx 5/325 mg] Amoxicillin [Amoxicillin TAB] 875 mg PO BID #20 tablet 04/22/19 Unknown Rx Ibuprofen [Motrin] 600 mg PO Q8H PRN #20 tablet 04/22/19 Unknown Rx Nystas/Diphen/Xyl Visc/Mylanta 15 ml MM Q6H PRN 5 Days ml 04/22/19 Unknown Rx [Magic Mouthwash] Allergies Allergy/AdvReac Type Severity Reaction Status Date / Time No Known Allergies Allergy Verified 12/26/17 12:21 ED Review of Systems ROS: Stated complaint: SORE THROAT Other details as noted in HPI Constitutional: denies: chills, fever Eyes: denies: eye pain, eye discharge, vision change ENT: throat pain. denies: ear pain Respiratory: denies: cough, shortness of breath, wheezing Cardiovascular: denies: chest pain, palpitations Endocrine: no symptoms reported Gastrointestinal: denies: abdominal pain, nausea, diarrhea Genitourinary: denies: urgency, dysuria, discharge Musculoskeletal: denies: back pain, joint swelling, arthralgia Skin: denies: rash, lesions Neurological: denies: headache, weakness, paresthesias Psychiatric: denies: anxiety, depression Hematological/Lymphatic: denies: easy bleeding, easy bruising ED Past Medical Hx - Past Medical History Hx Hypertension: No Hx Congestive Heart Failure: No Hx Diabetes: No Hx Deep Vein Thrombosis: No Hx Renal Disease: No Hx Sickle Cell Disease: No Hx Seizures: No Hx Asthma: No Hx COPD: No Hx HIV: No - Surgical History Additional Surgical History: c section - Social History Smoking Status: Never Smoker - Medications Home Medications: Home Medications Medication Instructions Recorded Confirmed Last Taken Type Ferrous Sulfate [Feosol 325 MG tab] 325 mg PO BID #60 tablet 08/09/18 Unknown Rx Ibuprofen [Motrin 800 MG tab] 800 mg PO Q6H PRN #30 tablet 08/09/18 Unknown Rx oxyCODONE /ACETAMINOPHEN [Percocet 1 - 2 tab PO Q4H PRN #30 tablet 08/09/18 Unknown Rx 5/325 mg] Amoxicillin [Amoxicillin TAB] 875 mg PO BID #20 tablet 04/22/19 Unknown Rx Ibuprofen [Motrin] 600 mg PO Q8H PRN #20 tablet 04/22/19 Unknown Rx Nystas/Diphen/Xyl Visc/Mylanta 15 ml MM Q6H PRN 5 Days ml 04/22/19 Unknown Rx [Magic Mouthwash] ED Physical Exam - General Limitations: No Limitations General appearance: alert, in no apparent distress - Head Head exam: Present: atraumatic, normocephalic - Expanded ENT Exam Expanded Mouth exam: Present: normal external inspection. Absent: drooling, trismus, muffled voice Teeth exam: Present: normal inspection Throat exam: Positive: tonsillar erythema, tonsillomegaly, other (Uvula midline). Negative: tonsillar exudate, R peritonsillar mass, L peritonsillar mass - Neck Neck exam: Present: normal inspection, full ROM. Absent: tenderness, meningismus, lymphadenopathy - Extremities Exam Extremities exam: Present: normal inspection, full ROM - Back Exam Back exam: Present: normal inspection, full ROM - Neurological Exam Neurological exam: Present: alert, oriented X3, normal gait - Psychiatric Psychiatric exam: Present: normal affect, normal mood - Skin Skin exam: Present: warm, dry, intact, normal color. Absent: rash ED Course - Reevaluation(s) Reevaluation #1: 04/22/19 21:31 Patient is speaking in full sentences with no signs of distress noted. ED Medical Decision Making - Medical Decision Making Patient was instructed to Follow-up with a primary care doctor in 3-5 days or if symptoms worsen and continue return to emergency room as soon as possible. At time of discharge, the patient does not seem toxic or ill in appearance. No acute signs of distress noted. Patient agrees to discharge treatment plan of care. No further questions noted by the patient. Critical care attestation.: If time is entered above; I have spent that time in minutes in the direct care of this critically ill patient, excluding procedure time. ED Disposition Clinical Impression: Pharyngitis Qualifiers: Pharyngitis/tonsillitis etiology: unspecified etiology Qualified Code(s): J02.9 - Acute pharyngitis, unspecified Disposition: - TO HOME OR SELFCARE Is pt being admited?: No Does the pt Need Aspirin: No Condition: Stable Instructions: Pharyngitis (ED) Additional Instructions: Follow-up with a primary care doctor in 3-5 days or if symptoms worsen and continue return to emergency room as soon as possible. Prescriptions: Amoxicillin [Amoxicillin TAB] 875 mg PO BID #20 tablet Nystas/Diphen/Xyl Visc/Mylanta [Magic Mouthwash] 15 ml MM Q6H PRN 5 Days ml PRN Reason: Sore Throat Ibuprofen [Motrin] 600 mg PO Q8H PRN #20 tablet PRN Reason: Pain Referrals: PRIMARY CARE, [Referring] - 3-5 Days BATSHEVA MANLEY MD [Staff Physician] - 3-5 Days [facility] [Outside] - 3-5 Days [facility] [Outside] - 3-5 Days Forms: Work/School Release Form(ED)
== END 2019-04-22 22:10 | disposition home or self-care (01) ==
LOC: ED 21:20
DX: J02.9 Acute pharyngitis, unspecified (principal)
CPT/HCPCS: 99282

== ENCOUNTER 2020-11-10 17:20 | Outpatient (CLI) | payer MEDICAID, OTHER ==
[2020-11-10 18:11] VITALS: BP 95/52
[2020-11-10 18:43] LABS: Bilirubin,Urine NEG (Negative); Blood,Urine NEG (Negative); Color,Urine Yellow (Yellow); Mucus,Urine FEW /HPF; Protein,Urine <15 mg/dL mg/dL (Negative); Urobilinogen,Urine < 2.0 mg/dL (<2.0)
[2020-11-10] MEDS ORDERED: LACTATED RINGERS 1,000 ML IV SCH (19:15)
== END 2020-11-10 19:18 | disposition home or self-care (01) ==
LOC: TRG 17:20 → APU 17:21 → TRG 19:18
PROVIDERS: ATTEND Obstetrics & Gynecology
DX: Z34.92 Encounter for supervision of normal pregnancy, unspecified, second trimester (principal); Z3A.22 22 weeks gestation of pregnancy
CPT/HCPCS: 59025; 81001

== ENCOUNTER 2020-11-14 18:06 | Inpatient (IN) | payer MEDICAID ==
[2020-11-14] MEDS ORDERED: PSEUDOEPHEDRINE 30 MG TAB PO PRN (18:25)
[2020-11-14] MEDS ORDERED: MAGNESIUM HYDROXIDE (MOM) ORAL LIQD UDC PO PRN (18:25)
[2020-11-14] MEDS ORDERED: SIMETHICONE 80 MG CHEW TAB PO PRN (18:25)
[2020-11-14] MEDS ORDERED: diphenhydrAMINE 25 MG CAP PO PRN (18:25)
[2020-11-14] MEDS ORDERED: ALUM-MAG HYDROXIDE-SIMETHICONE 200-200-20MG/5ML ORAL LIQD 30 ML PO PRN (18:25)
[2020-11-14] MEDS ORDERED: ONDANSETRON 4 MG/2 ML INJ IV PRN (18:25)
[2020-11-14] MEDS ORDERED: guaiFENesin DM 200/20 MG ORAL LIQD 10 ML PO PRN (18:25)
[2020-11-14] MEDS ORDERED: SODIUM CHLORIDE NASAL SPRAY 44ML NS PRN (18:25)
--- NOTE | 2020-11-14 18:25 | History and Physical Report ---
History of Present Illness Date of examination: 11/14/20 Date of admission: 11/14/2020 Chief complaint: Abnormal cervical findings on US at [facility] office today. Admitted now to steroids, MgSO4 neuroprotection, NICU consultation per [facility] recommendations History of present illness: EDC Confirmation: 03/16/2021 Gestational Age: 18 weeks Past History : 5 Term Births: 1 Premature Births: 1 Living Children: 2 Para: 2 Mult. Births: 0 Prev : 2 Prev. attempt? 0 Aborta: 2 Elect. Ab: 1 Spont. Ab: 1 Ectopics: 0 # 1 Delivery date: 2012 Weeks Gestation: term Delivery type: Anesthesia type: epidural Delivery location: [facility] Infant Sex: Female weight: 8-11 Comments: BREECH; Severe ileus postop Had NG tube for a while # 2 Delivery date: 2012 Weeks Gestation: 3-4 Delivery type: EAB Comments: pt states it was too soon after c/s # 3 Delivery date: 2017 Weeks Gestation: 9 Delivery type: SAB Comments: went for GA US and there was not a HB # 4 Delivery date: 08/09/2018 Weeks Gestation: 25 Delivery type: Hours of labor: 6 Anesthesia type: Spinal Delivery location: [facility] Sex: male Name: Viral Comments: labor, rupture of membranes Classical C- Section Past Medical History: Had ileus in 2012 after had NG tube. Past Surgical History: Past Medical History Anesthesia Complications: negative Anemia: negative Autoimmune Disorder: negative Bleeding Disorder: negative Blood Transfusions: negative Breast Disease: negative Diabetes: negative Heart Disease: negative Hypertension: negative Hepatitis/Liver Disease: negative Kidney Disease/UTI: negative Neurologic/Epilepsy/Migraines: negative Phlebitis/Varicosities: negative Psychiatric: negative Pulmonary Disease/Asthma: negative Thyroid Disease: negative Hospitalizations: negative Surgery (Non-urogynecology physician): positive Social Hx: Patient is single Smoking History: Patient has never smoked. Infection History HIV Risk Eval: no Active Medications: None Current Allergies (reviewed today): * POLLEN (Critical) HBsAg Screen Negative Negative *1 RPR Non Reactive Non Reactive *2 Rubella Antibodies, IgG 2.54 index Immune >0.99 *3 Non-immune <0.90 Equivocal 0.90 - 0.99 Immune >0.99 ABO Grouping O *4 Rh Factor Positive *5 Please note: Prior records for this patient's ABO / Rh type are not available for additional verification. Antibody Screen See Final Results Negative *6 Tests: (2) Ab Scr+Antibody ID ([id number]) ! Antibody Screen [A] Positive Negative *7 ! Antibody Id. #1 Anti-c (small) *8 ! Ubaldo Titer #1 1 *9 If a numerical titer result has been reported, please note that this result is the reciprocal value of titer results formerly reported as 1:2,1:4, 1:8, etc. These results are now reported as 2, 4, 8, etc. The [employer] has recommended this change in titer reporting formats to simply reflect the reciprocal value of the titer. ! Antibody Id. #2 <No Reported Value> *10 ! Ubaldo Titer #2 <No Reported Value> *11 Tests: (3) Profile I ([id number]) WBC [H] 12.2 x10E3/uL 3.4-10.8 *12 RBC 4.09 x10E6/uL 3.77-5.28 *13 Hemoglobin 11.5 g/dL 11.1-15.9 *14 Hematocrit 34.8 % 34.0-46.6 *15 MCV 85 fL 79-97 *16 MCH 28.1 pg 26.6-33.0 *17 MCHC 33.0 g/dL 31.5-35.7 *18 RDW 15.0 % 11.7-15.4 *19 Platelets 371 x10E3/uL 150-450 *20 Neutrophils 76 % Not Estab. *21 Lymphs 19 % Not Estab. *22 Monocytes 4 % Not Estab. *23 Eos 1 % Not Estab. *24 Basos 0 % Not Estab. *25 ! Immature Cells <No Reported Value> *26 Neutrophils (Absolute) [H] 9.1 x10E3/uL 1.4-7.0 *27 Lymphs (Absolute) 2.4 x10E3/uL 0.7-3.1 *28 Monocytes(Absolute) 0.5 x10E3/uL 0.1-0.9 *29 Eos (Absolute) 0.1 x10E3/uL 0.0-0.4 *30 Baso (Absolute) 0.0 x10E3/uL 0.0-0.2 *31 ! Immature Granulocytes 0 % Not Estab. *32 ! Immature Grans (Abs) 0.0 x10E3/uL 0.0-0.1 *33 ! NRBC <No Reported Value> *34 Hematology Comments: <No Reported Value> *35 Tests: (4) HB Solu + Rflx [facility] ([id number]) Hemoglobin (Hgb) Solubility Negative Negative *36 Tests: (5) HIV Ag/Ab with Reflex ([id number]) HIV Screen 4th Generation wRfx Non Reactive Non Reactive *37 Tests: (6) Gest. Diabetes 1-Hr Screen ([id number]) ! Gestational Diabetes Screen 106 mg/dL 65-139 *38 According to ADA, a glucose threshold of >139 mg/dL after 50-gram load identifies approximately 80% of women with gestational diabetes mellitus, while the sensitivity is further increased to approximately 90% by a threshold of >129 mg/dL. Tests: (7) HCV Ab w/Rflx to Verification ([id number]) ! HCV Ab 0.1 s/co ratio 0.0-0.9 *39 Tests: (8) Comment: ([id number]) ! Comment: SPRCS *40 Non reactive HCV antibody screen is consistent with no HCV infection, unless recent infection is suspected or other evidence exists to indicate HCV infection. Tests: (9) Urine Culture, Routine ([id number]) Urine Culture, Routine Final report *41 Tests: (10) Result ([id number]) ! Result 1 MUG *42 Mixed urogenital musa 25,000-50,000 colony forming units per mL Past History - Obstetrical History Expected Date of Delivery: 03/16/21 Actual Gestation: 22 Week(s) 4 Day(s) : 5 Para: 1 Hx # Term Pregnancies: 1 Number of Pregnancies: 1 Spontaneous Abortions: 1 Induced : 1 Number of Living Children: 2 Medications and Allergies Allergies Allergy/AdvReac Type Severity Reaction Status Date / Time No Known Allergies Allergy Verified 12/26/17 12:21 Home Medications Medication Instructions Recorded Confirmed Last Taken Type Ferrous Sulfate [Feosol 325 MG tab] 325 mg PO BID #60 tablet 08/09/18 Unknown Rx Ibuprofen [Motrin 800 MG tab] 800 mg PO Q6H PRN #30 tablet 08/09/18 Unknown Rx oxyCODONE /ACETAMINOPHEN [Percocet 1 - 2 tab PO Q4H PRN #30 tablet 02/17/19 Unknown Rx 5/325 mg] Amoxicillin [Amoxicillin TAB] 875 mg PO BID #20 tablet 04/22/19 Unknown Rx Ibuprofen [Motrin] 600 mg PO Q8H PRN #20 tablet 04/22/19 Unknown Rx Nystas/Diphen/Xyl Visc/Mylanta 15 ml MM Q6H PRN 5 Days ml 04/22/19 Unknown Rx [Magic Mouthwash] Review of Systems All systems: negative - Physical Exam Breasts: Positive: deferred Cardiovascular: Regular rate Lungs: Positive: Normal air movement Abdomen: Positive: normal appearance (obese), soft. Negative: tenderness Genitourinary (Female): Positive: normal external genitalia, normal perenium Vulva: both: normal Cervix: Positive: other (difficult to visualize) Uterus: Positive: enlarged. Negative: tender Anus/Rectum: Positive: normal perianal skin Extremities: Positive: normal - Obstetrical FHR: auscultation normal Uterine Contraction Monitor Mode: External Cervical Dilatation: 1 (was not aggressive with, no membranes in vagina) Uterine Contraction Pattern: Absent Results All other labs normal. 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
[2020-11-14] MEDS: LACTATED RINGERS 1,000 ML IV SCH (19:00)
--- NOTE | 2020-11-14 19:03 | Consultation ---
Consult Note - Parent Education I met with parent(s) and discussed the following:: Data for survival & survival without significant co-morbidities Parent(s) demonstrated understanding of all the information:: Yes Additional Comment: Discussed with Parents possibility of delivering non-viable if delivery is imminent; discussed NICU resus team presence at delivery to assess viability should she deliver prior to 24 weeks; discussed comfort care if determined to be non-viable. Parents verbalize understanding. Assessment and Plan - Plan Plan: Agree with Mag & steroids Will attend delivery Please call NICU with questions
[2020-11-14] MEDS ORDERED: MAGNESIUM SULFATE 4 GM/100 ML BAG IV ONE (19:25)
[2020-11-14] MEDS: BETAMET ACET/BETAMET NA PH 6 MG/ML INJ 5 ML MDV IM SCH (19:33)
[2020-11-14] MEDS: MAGNESIUM SULFATE 40GM/1000ML 40 GM/1,000 ML BAG IV SCH (19:33)
[2020-11-14 20:01] LABS: Basophils % (Auto) 0.2 % (0.0-1.8); Eosinophils # (Auto) 0.1 K/mm3 (0.0-0.4); Eosinophils % (Auto) 1.1 % (0.0-4.3); Hematocrit 32.5 % (30.3-42.9); Hemoglobin 11.3 gm/dl (10.1-14.3); Lymphocytes # (Auto) 2.7 K/mm3 (1.2-5.4); Lymphocytes % (Auto) 20.4 % (13.4-35.0); Mean Corpuscular HGB Conc 35 % (30-34); Mean Corpuscular Volume 84 fl (79-97); Monocytes # (Auto) 0.5 K/mm3 (0.0-0.8); Monocytes % (Auto) 4.1 % (0.0-7.3); Platelet Count 358 K/mm3 (140-440); Red Blood Count 3.88 M/mm3 (3.65-5.03); Red Cell Distribution Width 15.5 % (13.2-15.2)
--- NOTE | 2020-11-15 05:46 | Progress Note ---
Assessment and Plan Dr Reyna aware of pt - Patient Problems (1) 22 weeks gestation of Onset Date: ~11/15/20 Current Visit: Yes Status: Acute Plan to address problem: Pt awake c/o not being able to sleep Reports good FM Denies any ctx VSS Cat 1 strip for 22 weeks. MGSO4 @ 2gm/hr [place] draining clear yellow urine. Stable @ 22w5d CL zero. P: Pt repositioned to rest Will get air mattress Regular diet for breakfast. All concerns addressed 2nd dose BMZ @ 1930 tonight (2) Abnormal finding on ultrasound Current Visit: Yes Status: Acute Plan to address problem: Cervical [facility] will see pt in house for consultation and continuity of care Subjective - Subjective Date of service: 11/15/20 (denies ctx; reports good movement) Principal diagnosis: IUP@ 22w5d incompetent cervix BMZ X1 dose; MGSO4 for neuroprotection Patient reports: movement normal Objective - Vital Signs Vital Signs: Vital Signs - 12hr 11/14/20 11/14/20 11/14/20 18:53 19:01 19:03 Pulse Rate 105 H 104 H 102 H Blood Pressure 129/72 124/70 O2 Sat by Pulse 99 Oximetry 11/14/20 11/14/20 11/14/20 19:06 19:08 19:11 Pulse Rate 100 H 110 H 107 H Blood Pressure 133/81 97/77 O2 Sat by Pulse 100 Oximetry 11/14/20 11/14/20 11/14/20 19:13 19:16 19:18 Pulse Rate 103 H 109 H 106 H Blood Pressure 143/85 O2 Sat by Pulse 100 100 Oximetry 11/14/20 11/14/20 11/14/20 19:21 19:23 19:26 Pulse Rate 102 H 104 H 111 H Blood Pressure 137/77 135/79 O2 Sat by Pulse 100 Oximetry 11/14/20 11/14/20 11/14/20 19:28 19:31 19:33 Pulse Rate 106 H 105 H 103 H Blood Pressure 141/80 O2 Sat by Pulse 100 99 Oximetry 11/14/20 11/14/20 11/14/20 19:37 19:38 19:41 Pulse Rate 103 H 103 H 99 H Blood Pressure 150/79 125/73 O2 Sat by Pulse 98 Oximetry 11/14/20 11/14/20 11/14/20 19:43 19:46 19:48 Pulse Rate 98 H 100 H 99 H Blood Pressure 128/77 O2 Sat by Pulse 97 96 Oximetry 11/14/20 11/14/20 11/14/20 19:51 19:53 19:56 Pulse Rate 91 H 98 H 94 H Blood Pressure 140/75 134/80 O2 Sat by Pulse 98 Oximetry 11/14/20 11/14/20 11/14/20 19:58 20:02 20:03 Pulse Rate 115 H 99 H 107 H Blood Pressure 141/90 O2 Sat by Pulse 100 100 Oximetry 11/14/20 11/14/20 11/14/20 20:06 20:08 20:13 Pulse Rate 103 H 97 H 105 H Blood Pressure 147/98 O2 Sat by Pulse 99 99 Oximetry 11/14/20 11/14/20 11/14/20 20:15 20:18 20:23 Pulse Rate 98 H 107 H 100 H Blood Pressure O2 Sat by Pulse 88 99 99 Oximetry 11/14/20 11/14/20 11/14/20 20:25 20:28 20:33 Pulse Rate 101 H 91 H 105 H Blood Pressure O2 Sat by Pulse 85 100 96 Oximetry 11/14/20 11/14/20 11/14/20 20:37 20:38 20:43 Pulse Rate 98 H 103 H 97 H Blood Pressure 134/81 O2 Sat by Pulse 94 95 98 Oximetry 11/14/20 11/14/20 11/14/20 20:48 20:53 20:57 Pulse Rate 102 H 98 H 110 H Blood Pressure O2 Sat by Pulse 95 98 91 Oximetry 11/14/20 11/14/20 11/14/20 20:58 21:03 21:04 Pulse Rate 104 H 98 H 109 H Blood Pressure O2 Sat by Pulse 98 97 93 Oximetry 11/14/20 11/14/20 11/14/20 21:08 21:13 21:18 Pulse Rate 104 H 112 H 102 H Blood Pressure 148/88 O2 Sat by Pulse 84 98 96 Oximetry 11/14/20 11/14/20 11/14/20 21:23 21:25 21:28 Pulse Rate 110 H 111 H 109 H Blood Pressure O2 Sat by Pulse 97 90 96 Oximetry 11/14/20 11/14/20 11/14/20 21:32 21:33 21:37 Pulse Rate 103 H 106 H 106 H Blood Pressure 131/61 O2 Sat by Pulse 92 97 84 Oximetry 11/14/20 11/14/20 11/14/20 21:38 21:43 21:44 Pulse Rate 112 H 98 H 102 H Blood Pressure O2 Sat by Pulse 83 L 96 93 Oximetry 11/14/20 11/14/20 11/14/20 21:48 21:53 21:54 Pulse Rate 104 H 104 H 110 H Blood Pressure O2 Sat by Pulse 97 99 91 Oximetry 11/14/20 11/14/20 11/14/20 21:58 22:00 22:03 Pulse Rate 105 H 104 H 106 H Blood Pressure O2 Sat by Pulse 97 92 89 Oximetry 11/14/20 11/14/20 11/14/20 22:06 22:07 22:08 Pulse Rate 109 H 102 H 107 H Blood Pressure 115/55 O2 Sat by Pulse 88 100 Oximetry 11/14/20 11/14/20 11/14/20 22:12 22:13 22:18 Pulse Rate 103 H 102 H 112 H Blood Pressure O2 Sat by Pulse 82 L 98 97 Oximetry 11/14/20 11/14/20 11/14/20 22:23 22:28 22:30 Pulse Rate 116 H 110 H 68 Blood Pressure O2 Sat by Pulse 91 98 84 Oximetry 11/14/20 11/14/20 11/14/20 22:33 22:36 22:37 Pulse Rate 107 H 104 H 102 H Blood Pressure 110/59 O2 Sat by Pulse 99 93 Oximetry 11/14/20 11/14/20 11/14/20 22:38 22:42 22:46 Pulse Rate 113 H 111 H 110 H Blood Pressure O2 Sat by Pulse 95 85 94 Oximetry 11/14/20 11/14/20 11/14/20 22:50 22:51 22:56 Pulse Rate 67 111 H 109 H Blood Pressure O2 Sat by Pulse 80 L 94 97 Oximetry 11/14/20 11/14/20 11/14/20 22:57 23:01 23:06 Pulse Rate 102 H 103 H 99 H Blood Pressure O2 Sat by Pulse 93 93 96 Oximetry 11/14/20 11/14/20 11/14/20 23:07 23:09 23:11 Pulse Rate 98 H 113 H 105 H Blood Pressure 123/70 O2 Sat by Pulse 86 93 Oximetry 11/14/20 11/14/20 11/14/20 23:14 23:16 23:20 Pulse Rate 106 H 104 H 103 H Blood Pressure O2 Sat by Pulse 91 97 92 Oximetry 11/14/20 11/14/20 11/14/20 23:21 23:26 23:28 Pulse Rate 102 H 107 H 102 H Blood Pressure O2 Sat by Pulse 99 98 83 L Oximetry 11/14/20 11/14/20 11/14/20 23:31 23:36 23:41 Pulse Rate 102 H 102 H 102 H Blood Pressure O2 Sat by Pulse 100 94 100 Oximetry 11/14/20 11/14/20 11/14/20 23:42 23:46 23:51 Pulse Rate 121 H 114 H 103 H Blood Pressure O2 Sat by Pulse 82 L 85 100 Oximetry 11/14/20 11/14/20 11/15/20 23:52 23:56 00:01 Pulse Rate 113 H 104 H 63 Blood Pressure O2 Sat by Pulse 87 97 95 Oximetry 11/15/20 11/15/20 11/15/20 00:02 00:06 00:11 Pulse Rate 64 108 H 110 H Blood Pressure O2 Sat by Pulse 87 100 99 Oximetry 11/15/20 11/15/20 11/15/20 00:17 00:22 00:23 Pulse Rate 102 H 107 H 113 H Blood Pressure O2 Sat by Pulse 88 95 93 Oximetry 11/15/20 11/15/20 11/15/20 00:27 00:32 00:37 Pulse Rate 104 H 103 H 106 H Blood Pressure O2 Sat by Pulse 95 88 76 L Oximetry 11/15/20 11/15/20 11/15/20 00:38 00:42 00:43 Pulse Rate 105 H 105 H 111 H Blood Pressure 109/57 O2 Sat by Pulse 100 91 Oximetry 11/15/20 11/15/20 11/15/20 00:47 00:49 00:52 Pulse Rate 105 H 109 H Blood Pressure O2 Sat by Pulse 92 89 99 Oximetry 11/15/20 11/15/20 11/15/20 00:57 01:00 01:02 Pulse Rate 106 H 50 L 106 H Blood Pressure O2 Sat by Pulse 100 77 L 83 L Oximetry 11/15/20 11/15/20 11/15/20 01:06 01:07 01:12 Pulse Rate 107 H 107 H 111 H Blood Pressure O2 Sat by Pulse 94 97 93 Oximetry 11/15/20 11/15/20 11/15/20 01:17 01:19 01:22 Pulse Rate 112 H 111 H 112 H Blood Pressure O2 Sat by Pulse 93 94 95 Oximetry 11/15/20 11/15/20 11/15/20 01:26 01:27 01:32 Pulse Rate 113 H 107 H 112 H Blood Pressure O2 Sat by Pulse 93 94 98 Oximetry 11/15/20 11/15/20 11/15/20 01:36 01:37 01:41 Pulse Rate 108 H 103 H 114 H Blood Pressure 116/56 O2 Sat by Pulse 95 91 Oximetry 11/15/20 11/15/20 11/15/20 01:42 01:47 01:48 Pulse Rate 104 H 114 H 112 H Blood Pressure O2 Sat by Pulse 96 96 94 Oximetry 11/15/20 11/15/20 11/15/20 01:53 01:55 01:58 Pulse Rate 110 H 110 H 106 H Blood Pressure O2 Sat by Pulse 99 93 93 Oximetry 11/15/20 11/15/20 11/15/20 02:00 02:03 02:07 Pulse Rate 86 105 H 110 H Blood Pressure O2 Sat by Pulse 88 100 94 Oximetry 11/15/20 11/15/20 11/15/20 02:08 02:13 02:18 Pulse Rate 110 H 112 H 112 H Blood Pressure O2 Sat by Pulse 92 91 92 Oximetry 11/15/20 11/15/20 11/15/20 02:23 02:28 02:33 Pulse Rate 111 H 109 H 119 H Blood Pressure O2 Sat by Pulse 92 93 93 Oximetry 11/15/20 11/15/20 11/15/20 02:36 02:38 02:43 Pulse Rate 109 H 109 H 111 H Blood Pressure 122/68 O2 Sat by Pulse 94 94 Oximetry 11/15/20 11/15/20 11/15/20 02:48 02:49 02:53 Pulse Rate 110 H 110 H 111 H Blood Pressure O2 Sat by Pulse 94 94 94 Oximetry 11/15/20 11/15/20 11/15/20 02:57 02:58 03:03 Pulse Rate 112 H 113 H 106 H Blood Pressure O2 Sat by Pulse 94 94 95 Oximetry 11/15/20 11/15/20 11/15/20 03:08 03:13 03:18 Pulse Rate 110 H 106 H 110 H Blood Pressure O2 Sat by Pulse 99 100 100 Oximetry 11/15/20 11/15/20 11/15/20 03:23 03:26 03:28 Pulse Rate 110 H 101 H 105 H Blood Pressure O2 Sat by Pulse 100 84 94 Oximetry 11/15/20 11/15/20 11/15/20 03:32 03:33 03:36 Pulse Rate 110 H 105 H 111 H Blood Pressure 109/64 O2 Sat by Pulse 94 94 Oximetry 11/15/20 11/15/20 11/15/20 03:37 03:38 03:42 Pulse Rate 102 H 100 H Blood Pressure O2 Sat by Pulse 83 L 99 89 Oximetry 11/15/20 11/15/20 11/15/20 03:43 03:48 03:53 Pulse Rate 107 H 105 H 109 H Blood Pressure O2 Sat by Pulse 88 96 96 Oximetry 11/15/20 11/15/20 11/15/20 03:59 04:03 04:08 Pulse Rate 109 H 111 H 104 H Blood Pressure O2 Sat by Pulse 96 96 92 Oximetry 11/15/20 11/15/20 11/15/20 04:09 04:13 04:19 Pulse Rate 119 H 105 H 107 H Blood Pressure O2 Sat by Pulse 94 93 76 L Oximetry 11/15/20 11/15/20 11/15/20 04:24 04:26 04:29 Pulse Rate 104 H 108 H 109 H Blood Pressure O2 Sat by Pulse 96 91 99 Oximetry 11/15/20 11/15/20 11/15/20 04:32 04:34 04:36 Pulse Rate 114 H 106 H 108 H Blood Pressure 93/57 O2 Sat by Pulse 93 94 Oximetry 11/15/20 11/15/20 11/15/20 04:37 04:39 04:43 Pulse Rate 110 H 108 H 106 H Blood Pressure O2 Sat by Pulse 69 L 94 89 Oximetry 11/15/20 11/15/20 11/15/20 04:44 04:48 04:49 Pulse Rate 109 H 107 H Blood Pressure O2 Sat by Pulse 89 83 L 90 Oximetry 11/15/20 11/15/20 11/15/20 04:54 04:57 05:02 Pulse Rate 105 H 64 110 H Blood Pressure O2 Sat by Pulse 73 L 71 L 92 Oximetry 11/15/20 11/15/20 11/15/20 05:03 05:07 05:08 Pulse Rate 104 H 112 H 102 H Blood Pressure O2 Sat by Pulse 75 L 93 59 L Oximetry 11/15/20 11/15/20 11/15/20 05:12 05:17 05:22 Pulse Rate 114 H 102 H 104 H Blood Pressure O2 Sat by Pulse 100 94 94 Oximetry 11/15/20 11/15/20 11/15/20 05:28 05:33 05:35 Pulse Rate 103 H 111 H 104 H Blood Pressure O2 Sat by Pulse 100 98 83 L Oximetry 11/15/20 11/15/20 11/15/20 05:36 05:38 05:43 Pulse Rate 100 H 106 H 99 H Blood Pressure 111/58 O2 Sat by Pulse 100 100 Oximetry - Exam Breasts: deferred Cardiovascular: Regular rate Lungs: Clear to auscultation Abdomen: Present: normal appearance, soft. Absent: distention, tenderness Uterus: Present: normal FHR: auscultation normal Uterine Contraction Monitor Mode: External Uterine Contraction Pattern: Absent Uterine Tone Measurement Phase: Resting Extremities: normal Deep Tendon Reflex Grade: Normal +2 - Labs Labs: Abnormal Labs 11/14/20 11/15/20 19:22 00:04 WBC 13.0 H MCHC 35 H RDW 15.5 H Seg Neutrophils % 74.2 H Seg Neutrophils # 9.6 H Magnesium 4.00 H Laboratory Results - last 24 hr 11/14/20 11/14/20 11/14/20 19:22 19:22 19:39 WBC 13.0 H RBC 3.88 Hgb 11.3 Hct 32.5 MCV 84 MCH 29 MCHC 35 H RDW 15.5 H Plt Count 358 Lymph % (Auto) 20.4 [place] % (Auto) 4.1 Eos % (Auto) 1.1 Baso % (Auto) 0.2 Lymph # (Auto) 2.7 [place] # (Auto) 0.5 Eos # (Auto) 0.1 Baso # (Auto) 0.0 Seg Neutrophils % 74.2 H Seg Neutrophils # 9.6 H Magnesium Syphilis IgG Antibody Nonreactive Blood Type O POSITIVE Antibody Screen Positive 11/15/20 00:04 WBC RBC Hgb Hct MCV MCH MCHC RDW Plt Count Lymph % (Auto) [place] % (Auto) Eos % (Auto) Baso % (Auto) Lymph # (Auto) [place] # (Auto) Eos # (Auto) Baso # (Auto) Seg Neutrophils % Seg Neutrophils # Magnesium 4.00 H Syphilis IgG Antibody Blood Type Antibody Screen
[2020-11-15] MEDS: LACTATED RINGERS 1,000 ML IV SCH ×2 (09:01→20:10)
[2020-11-15] MEDS: DOCUSATE SODIUM 100 MG CAP PO SCH (10:15)
[2020-11-15] MEDS: PRENATAL VIT27-FE FUMARATE-FOLIC ACID VIT TAB PO SCH (10:15)
[2020-11-15] MEDS: MAGNESIUM SULFATE 40GM/1000ML 40 GM/1,000 ML BAG IV SCH (16:12)
--- NOTE | 2020-11-15 19:12 | Event Note ---
Date: 11/15/20 Discussed with the patient plan of care for now. We will continue to observe the hospital finish her series of betamethasone will stop magnesium sulfate once series is done. Discussed with the patient need for hospitalization due to her advanced following with cervix and very early gestational age. Will monitor the fetus intermittently due to the patient's discomfort with the belts. Labor precautions given patient. All questions answered.
[2020-11-15] MEDS: BETAMET ACET/BETAMET NA PH 6 MG/ML INJ 5 ML MDV IM SCH (19:59)
--- NOTE | 2020-11-16 07:30 | Progress Note ---
Assessment and Plan A: IUP at 22 6/7 weeks gestation - s/p BMZ - EFW 1lb 6 oz 11/14/2020 Cervical shortening /incompetence History of PTD at 25 weeks Prior CSx2 ( LTCS x 1, Classical x1 ) Maternal obesity + Antibody titer in providers office Rec: Continue to monitor for labor, ROM Magnesium sulfate can be d/c today in the absence of active labor Will need a repeat antibody screen Serial growth scans testing at 28 weeks gestation Subjective - Subjective Date of service: 11/16/20 Principal diagnosis: IUP@ 22w6d incompetent cervix BMZ X1 dose; MGSO4 for neuroprotection Interval history: She denies contractions, bleeding, LOF ,abdominal pain Patient reports: movement normal Objective - Vital Signs Vital Signs: Vital Signs - 12hr 11/15/20 11/15/20 11/15/20 20:03 20:05 23:57 Temperature 97.8 F Pulse Rate 107 H 107 H 103 H Respiratory 18 Rate Blood Pressure 135/78 Blood Pressure 135/78 [Right] O2 Sat by Pulse 95 Oximetry 11/16/20 11/16/20 11/16/20 00:02 00:07 00:09 Temperature Pulse Rate 52 L 110 H 87 Respiratory Rate Blood Pressure Blood Pressure [Right] O2 Sat by Pulse 86 97 80 L Oximetry 11/16/20 11/16/20 11/16/20 00:13 00:16 00:18 Temperature Pulse Rate 75 197 H Respiratory Rate Blood Pressure Blood Pressure [Right] O2 Sat by Pulse 79 L 83 L 90 Oximetry 11/16/20 11/16/20 11/16/20 00:21 00:24 00:27 Temperature Pulse Rate 42 L 112 H 108 H Respiratory Rate Blood Pressure Blood Pressure [Right] O2 Sat by Pulse 87 85 85 Oximetry 11/16/20 11/16/20 11/16/20 00:29 00:33 00:34 Temperature Pulse Rate 110 H 111 H Respiratory Rate Blood Pressure Blood Pressure [Right] O2 Sat by Pulse 80 L 84 95 Oximetry 11/16/20 11/16/20 11/16/20 00:39 00:40 00:44 Temperature Pulse Rate 112 H 31 L 102 H Respiratory Rate Blood Pressure Blood Pressure [Right] O2 Sat by Pulse 86 84 90 Oximetry 11/16/20 11/16/20 11/16/20 00:47 00:49 00:54 Temperature Pulse Rate 114 H 100 H 108 H Respiratory Rate Blood Pressure Blood Pressure [Right] O2 Sat by Pulse 93 93 93 Oximetry 11/16/20 11/16/20 11/16/20 00:59 01:04 01:09 Temperature Pulse Rate 109 H 62 112 H Respiratory Rate Blood Pressure Blood Pressure [Right] O2 Sat by Pulse 92 86 92 Oximetry 11/16/20 11/16/20 11/16/20 01:14 01:19 01:21 Temperature Pulse Rate 111 H 110 H Respiratory Rate Blood Pressure Blood Pressure [Right] O2 Sat by Pulse 89 90 80 L Oximetry 11/16/20 11/16/20 11/16/20 01:24 01:29 01:34 Temperature Pulse Rate 115 H 110 H 110 H Respiratory Rate Blood Pressure Blood Pressure [Right] O2 Sat by Pulse 86 89 82 L Oximetry 11/16/20 11/16/20 11/16/20 01:39 01:44 01:49 Temperature Pulse Rate 110 H 112 H 112 H Respiratory Rate Blood Pressure Blood Pressure [Right] O2 Sat by Pulse 81 L 82 L 86 Oximetry 11/16/20 11/16/20 11/16/20 01:54 01:59 02:04 Temperature Pulse Rate 111 H 110 H 110 H Respiratory Rate Blood Pressure Blood Pressure [Right] O2 Sat by Pulse 89 78 L 81 L Oximetry 11/16/20 11/16/20 11/16/20 02:05 02:09 02:11 Temperature Pulse Rate 113 H 27 L Respiratory Rate Blood Pressure Blood Pressure [Right] O2 Sat by Pulse 82 L 82 L 89 Oximetry 11/16/20 11/16/20 11/16/20 02:14 02:17 02:24 Temperature Pulse Rate 108 H 107 H Respiratory Rate Blood Pressure Blood Pressure [Right] O2 Sat by Pulse 90 77 L 97 Oximetry 11/16/20 11/16/20 11/16/20 02:30 02:36 02:37 Temperature Pulse Rate 130 H 68 Respiratory Rate Blood Pressure Blood Pressure [Right] O2 Sat by Pulse 100 88 87 Oximetry 11/16/20 11/16/20 11/16/20 02:41 02:43 02:46 Temperature Pulse Rate 104 H 109 H Respiratory Rate Blood Pressure Blood Pressure [Right] O2 Sat by Pulse 86 88 88 Oximetry 11/16/20 11/16/20 11/16/20 02:47 02:53 02:57 Temperature Pulse Rate 105 H 108 H 104 H Respiratory Rate Blood Pressure Blood Pressure [Right] O2 Sat by Pulse 82 L 82 L 82 L Oximetry 11/16/20 11/16/20 11/16/20 03:03 03:07 03:12 Temperature Pulse Rate 106 H 108 H 108 H Respiratory Rate Blood Pressure Blood Pressure [Right] O2 Sat by Pulse 81 L 82 L 81 L Oximetry 11/16/20 11/16/20 11/16/20 03:18 03:23 03:27 Temperature Pulse Rate 108 H 107 H 103 H Respiratory Rate Blood Pressure Blood Pressure [Right] O2 Sat by Pulse 82 L 81 L 82 L Oximetry 11/16/20 11/16/20 11/16/20 03:33 03:38 03:42 Temperature Pulse Rate 103 H 55 L 106 H Respiratory Rate Blood Pressure Blood Pressure [Right] O2 Sat by Pulse 81 L 83 L 76 L Oximetry 11/16/20 11/16/20 11/16/20 03:43 03:47 03:49 Temperature Pulse Rate 113 H 99 H Respiratory Rate Blood Pressure Blood Pressure [Right] O2 Sat by Pulse 94 85 98 Oximetry 11/16/20 11/16/20 11/16/20 03:54 03:59 04:04 Temperature Pulse Rate 104 H 99 H 103 H Respiratory Rate Blood Pressure Blood Pressure [Right] O2 Sat by Pulse 99 98 98 Oximetry 11/16/20 11/16/20 11/16/20 04:09 04:14 04:19 Temperature Pulse Rate 100 H 104 H 98 H Respiratory Rate Blood Pressure Blood Pressure [Right] O2 Sat by Pulse 98 98 96 Oximetry 11/16/20 11/16/20 11/16/20 04:24 04:29 04:34 Temperature Pulse Rate 103 H 101 H 102 H Respiratory Rate Blood Pressure Blood Pressure [Right] O2 Sat by Pulse 98 99 98 Oximetry 11/16/20 11/16/20 11/16/20 04:39 04:44 04:49 Temperature Pulse Rate 94 H 96 H 98 H Respiratory Rate Blood Pressure Blood Pressure [Right] O2 Sat by Pulse 100 98 98 Oximetry 11/16/20 11/16/20 11/16/20 04:54 04:59 05:04 Temperature Pulse Rate 97 H 100 H 104 H Respiratory Rate Blood Pressure Blood Pressure [Right] O2 Sat by Pulse 98 97 98 Oximetry 11/16/20 11/16/20 11/16/20 05:09 05:14 05:19 Temperature Pulse Rate 100 H 105 H 100 H Respiratory Rate Blood Pressure Blood Pressure [Right] O2 Sat by Pulse 98 96 97 Oximetry 11/16/20 11/16/20 11/16/20 05:24 05:29 05:34 Temperature Pulse Rate 99 H 101 H 102 H Respiratory Rate Blood Pressure Blood Pressure [Right] O2 Sat by Pulse 99 98 99 Oximetry 11/16/20 11/16/20 11/16/20 05:36 05:39 05:41 Temperature Pulse Rate 101 H 95 H 92 H Respiratory Rate Blood Pressure Blood Pressure [Right] O2 Sat by Pulse 94 98 94 Oximetry 11/16/20 11/16/20 11/16/20 05:44 05:49 05:54 Temperature Pulse Rate 95 H 100 H 96 H Respiratory Rate Blood Pressure Blood Pressure [Right] O2 Sat by Pulse 95 96 96 Oximetry 11/16/20 11/16/20 11/16/20 05:59 06:04 06:09 Temperature Pulse Rate 103 H 103 H 102 H Respiratory Rate Blood Pressure Blood Pressure [Right] O2 Sat by Pulse 95 96 94 Oximetry 11/16/20 11/16/20 11/16/20 06:14 06:15 06:19 Temperature Pulse Rate 100 H 108 H 106 H Respiratory Rate Blood Pressure Blood Pressure [Right] O2 Sat by Pulse 96 94 98 Oximetry 11/16/20 11/16/20 11/16/20 06:24 06:28 06:32 Temperature Pulse Rate 107 H 103 H 102 H Respiratory Rate Blood Pressure Blood Pressure [Right] O2 Sat by Pulse 98 99 94 Oximetry 11/16/20 11/16/20 11/16/20 06:34 06:39 06:43 Temperature Pulse Rate 103 H 102 H 109 H Respiratory Rate Blood Pressure Blood Pressure [Right] O2 Sat by Pulse 98 99 96 Oximetry 11/16/20 11/16/20 11/16/20 06:49 06:54 06:59 Temperature Pulse Rate 104 H 98 H 104 H Respiratory Rate Blood Pressure Blood Pressure [Right] O2 Sat by Pulse 99 97 98 Oximetry 11/16/20 11/16/20 11/16/20 07:04 07:06 07:09 Temperature Pulse Rate 106 H 102 H 109 H Respiratory Rate Blood Pressure 113/68 Blood Pressure [Right] O2 Sat by Pulse 100 98 Oximetry 11/16/20 11/16/20 11/16/20 07:14 07:19 07:24 Temperature Pulse Rate 102 H 104 H 110 H Respiratory Rate Blood Pressure Blood Pressure [Right] O2 Sat by Pulse 97 99 98 Oximetry - Exam Narrative Exam: laying in bed Abdomen: Present: normal appearance, soft - Labs Labs: Abnormal Labs 11/14/20 11/15/20 11/15/20 19:22 00:04 05:50 WBC 13.0 H MCHC 35 H RDW 15.5 H Seg Neutrophils % 74.2 H Seg Neutrophils # 9.6 H Magnesium 4.00 H 4.50 H 11/15/20 11/15/20 11/16/20 14:06 18:11 00:15 WBC MCHC RDW Seg Neutrophils % Seg Neutrophils # Magnesium 4.80 H 4.50 H 4.00 H Laboratory Results - last 24 hr 11/15/20 11/15/20 11/15/20 14:06 18:11 Unknown Magnesium 4.80 H 4.50 H Coronavirus (PCR) 11/16/20 00:15 Magnesium 4.00 H Coronavirus (PCR)
--- NOTE | 2020-11-16 07:41 | Progress Note ---
Assessment and Plan Patient doing well, no c/o pain, ctx, SROM or vag bleeding. Patient reports + FM. She reports understanding of discussion with Dr. Foreman from [facility] and know she will remain in house for the foreseeable future. Pt states she is concerned about not seeing her children. Discussed she may have a wheelchair ride to visit them - discussed with RN and rn unit manager. All questions addressed. 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 Current Visit: Yes Status: Chronic Qualifiers: Previous scar type: vertical uterine incision (4) Short cervix during in second trimester Current Visit: No Status: Acute (5) Abnormal antibody titer Current Visit: Yes Status: Acute Subjective - Subjective Date of service: 11/16/20 Principal diagnosis: IUP@ 22w6d incompetent cervix Patient reports: movement normal, no loss of fluid, no vaginal bleeding, no contractions Objective - Vital Signs Vital Signs: Vital Signs - 12hr 11/15/20 11/15/20 11/15/20 20:03 20:05 23:57 Temperature 97.8 F Pulse Rate 107 H 107 H 103 H Respiratory 18 Rate Blood Pressure 135/78 Blood Pressure 135/78 [Right] O2 Sat by Pulse 95 Oximetry 11/16/20 11/16/20 11/16/20 00:02 00:07 00:09 Temperature Pulse Rate 52 L 110 H 87 Respiratory Rate Blood Pressure Blood Pressure [Right] O2 Sat by Pulse 86 97 80 L Oximetry 11/16/20 11/16/20 11/16/20 00:13 00:16 00:18 Temperature Pulse Rate 75 197 H Respiratory Rate Blood Pressure Blood Pressure [Right] O2 Sat by Pulse 79 L 83 L 90 Oximetry 11/16/20 11/16/20 11/16/20 00:21 00:24 00:27 Temperature Pulse Rate 42 L 112 H 108 H Respiratory Rate Blood Pressure Blood Pressure [Right] O2 Sat by Pulse 87 85 85 Oximetry 11/16/20 11/16/20 11/16/20 00:29 00:33 00:34 Temperature Pulse Rate 110 H 111 H Respiratory Rate Blood Pressure Blood Pressure [Right] O2 Sat by Pulse 80 L 84 95 Oximetry 11/16/20 11/16/20 11/16/20 00:39 00:40 00:44 Temperature Pulse Rate 112 H 31 L 102 H Respiratory Rate Blood Pressure Blood Pressure [Right] O2 Sat by Pulse 86 84 90 Oximetry 11/16/20 11/16/20 11/16/20 00:47 00:49 00:54 Temperature Pulse Rate 114 H 100 H 108 H Respiratory Rate Blood Pressure Blood Pressure [Right] O2 Sat by Pulse 93 93 93 Oximetry 11/16/20 11/16/20 11/16/20 00:59 01:04 01:09 Temperature Pulse Rate 109 H 62 112 H Respiratory Rate Blood Pressure Blood Pressure [Right] O2 Sat by Pulse 92 86 92 Oximetry 11/16/20 11/16/20 11/16/20 01:14 01:19 01:21 Temperature Pulse Rate 111 H 110 H Respiratory Rate Blood Pressure Blood Pressure [Right] O2 Sat by Pulse 89 90 80 L Oximetry 11/16/20 11/16/20 11/16/20 01:24 01:29 01:34 Temperature Pulse Rate 115 H 110 H 110 H Respiratory Rate Blood Pressure Blood Pressure [Right] O2 Sat by Pulse 86 89 82 L Oximetry 11/16/20 11/16/20 11/16/20 01:39 01:44 01:49 Temperature Pulse Rate 110 H 112 H 112 H Respiratory Rate Blood Pressure Blood Pressure [Right] O2 Sat by Pulse 81 L 82 L 86 Oximetry 11/16/20 11/16/20 11/16/20 01:54 01:59 02:04 Temperature Pulse Rate 111 H 110 H 110 H Respiratory Rate Blood Pressure Blood Pressure [Right] O2 Sat by Pulse 89 78 L 81 L Oximetry 11/16/20 11/16/20 11/16/20 02:05 02:09 02:11 Temperature Pulse Rate 113 H 27 L Respiratory Rate Blood Pressure Blood Pressure [Right] O2 Sat by Pulse 82 L 82 L 89 Oximetry 11/16/20 11/16/20 11/16/20 02:14 02:17 02:24 Temperature Pulse Rate 108 H 107 H Respiratory Rate Blood Pressure Blood Pressure [Right] O2 Sat by Pulse 90 77 L 97 Oximetry 11/16/20 11/16/20 11/16/20 02:30 02:36 02:37 Temperature Pulse Rate 130 H 68 Respiratory Rate Blood Pressure Blood Pressure [Right] O2 Sat by Pulse 100 88 87 Oximetry 11/16/20 11/16/20 11/16/20 02:41 02:43 02:46 Temperature Pulse Rate 104 H 109 H Respiratory Rate Blood Pressure Blood Pressure [Right] O2 Sat by Pulse 86 88 88 Oximetry 11/16/20 11/16/20 11/16/20 02:47 02:53 02:57 Temperature Pulse Rate 105 H 108 H 104 H Respiratory Rate Blood Pressure Blood Pressure [Right] O2 Sat by Pulse 82 L 82 L 82 L Oximetry 11/16/20 11/16/20 11/16/20 03:03 03:07 03:12 Temperature Pulse Rate 106 H 108 H 108 H Respiratory Rate Blood Pressure Blood Pressure [Right] O2 Sat by Pulse 81 L 82 L 81 L Oximetry 11/16/20 11/16/20 11/16/20 03:18 03:23 03:27 Temperature Pulse Rate 108 H 107 H 103 H Respiratory Rate Blood Pressure Blood Pressure [Right] O2 Sat by Pulse 82 L 81 L 82 L Oximetry 11/16/20 11/16/20 11/16/20 03:33 03:38 03:42 Temperature Pulse Rate 103 H 55 L 106 H Respiratory Rate Blood Pressure Blood Pressure [Right] O2 Sat by Pulse 81 L 83 L 76 L Oximetry 11/16/20 11/16/20 11/16/20 03:43 03:47 03:49 Temperature Pulse Rate 113 H 99 H Respiratory Rate Blood Pressure Blood Pressure [Right] O2 Sat by Pulse 94 85 98 Oximetry 11/16/20 11/16/20 11/16/20 03:54 03:59 04:04 Temperature Pulse Rate 104 H 99 H 103 H Respiratory Rate Blood Pressure Blood Pressure [Right] O2 Sat by Pulse 99 98 98 Oximetry 11/16/20 11/16/20 11/16/20 04:09 04:14 04:19 Temperature Pulse Rate 100 H 104 H 98 H Respiratory Rate Blood Pressure Blood Pressure [Right] O2 Sat by Pulse 98 98 96 Oximetry 11/16/20 11/16/20 11/16/20 04:24 04:29 04:34 Temperature Pulse Rate 103 H 101 H 102 H Respiratory Rate Blood Pressure Blood Pressure [Right] O2 Sat by Pulse 98 99 98 Oximetry 11/16/20 11/16/20 11/16/20 04:39 04:44 04:49 Temperature Pulse Rate 94 H 96 H 98 H Respiratory Rate Blood Pressure Blood Pressure [Right] O2 Sat by Pulse 100 98 98 Oximetry 11/16/20 11/16/20 11/16/20 04:54 04:59 05:04 Temperature Pulse Rate 97 H 100 H 104 H Respiratory Rate Blood Pressure Blood Pressure [Right] O2 Sat by Pulse 98 97 98 Oximetry 11/16/20 11/16/20 11/16/20 05:09 05:14 05:19 Temperature Pulse Rate 100 H 105 H 100 H Respiratory Rate Blood Pressure Blood Pressure [Right] O2 Sat by Pulse 98 96 97 Oximetry 11/16/20 11/16/20 11/16/20 05:24 05:29 05:34 Temperature Pulse Rate 99 H 101 H 102 H Respiratory Rate Blood Pressure Blood Pressure [Right] O2 Sat by Pulse 99 98 99 Oximetry 11/16/20 11/16/20 11/16/20 05:36 05:39 05:41 Temperature Pulse Rate 101 H 95 H 92 H Respiratory Rate Blood Pressure Blood Pressure [Right] O2 Sat by Pulse 94 98 94 Oximetry 11/16/20 11/16/20 11/16/20 05:44 05:49 05:54 Temperature Pulse Rate 95 H 100 H 96 H Respiratory Rate Blood Pressure Blood Pressure [Right] O2 Sat by Pulse 95 96 96 Oximetry 11/16/20 11/16/20 11/16/20 05:59 06:04 06:09 Temperature Pulse Rate 103 H 103 H 102 H Respiratory Rate Blood Pressure Blood Pressure [Right] O2 Sat by Pulse 95 96 94 Oximetry 11/16/20 11/16/20 11/16/20 06:14 06:15 06:19 Temperature Pulse Rate 100 H 108 H 106 H Respiratory Rate Blood Pressure Blood Pressure [Right] O2 Sat by Pulse 96 94 98 Oximetry 11/16/20 11/16/20 11/16/20 06:24 06:28 06:32 Temperature Pulse Rate 107 H 103 H 102 H Respiratory Rate Blood Pressure Blood Pressure [Right] O2 Sat by Pulse 98 99 94 Oximetry 11/16/20 11/16/20 11/16/20 06:34 06:39 06:43 Temperature Pulse Rate 103 H 102 H 109 H Respiratory Rate Blood Pressure Blood Pressure [Right] O2 Sat by Pulse 98 99 96 Oximetry 11/16/20 11/16/20 11/16/20 06:49 06:54 06:59 Temperature Pulse Rate 104 H 98 H 104 H Respiratory Rate Blood Pressure Blood Pressure [Right] O2 Sat by Pulse 99 97 98 Oximetry 11/16/20 11/16/20 11/16/20 07:04 07:06 07:09 Temperature Pulse Rate 106 H 102 H 109 H Respiratory Rate Blood Pressure 113/68 Blood Pressure [Right] O2 Sat by Pulse 100 98 Oximetry 11/16/20 11/16/20 11/16/20 07:14 07:19 07:24 Temperature Pulse Rate 102 H 104 H 110 H Respiratory Rate Blood Pressure Blood Pressure [Right] O2 Sat by Pulse 97 99 98 Oximetry 11/16/20 11/16/20 07:29 07:34 Temperature Pulse Rate 106 H 104 H Respiratory Rate Blood Pressure Blood Pressure [Right] O2 Sat by Pulse 99 98 Oximetry - Exam Breasts: normal Cardiovascular: Regular rate Lungs: Normal air movement Abdomen: Present: normal appearance, soft Vulva: both: normal Uterus: Present: normal, fundal height at umbilicus FHR: auscultation normal Uterine Tone Measurement Phase: Resting Extremities: normal - Labs Labs: Abnormal Labs 11/14/20 11/15/20 11/15/20 19:22 00:04 05:50 WBC 13.0 H MCHC 35 H RDW 15.5 H Seg Neutrophils % 74.2 H Seg Neutrophils # 9.6 H Magnesium 4.00 H 4.50 H 11/15/20 11/15/20 11/16/20 14:06 18:11 00:15 WBC MCHC RDW Seg Neutrophils % Seg Neutrophils # Magnesium 4.80 H 4.50 H 4.00 H Laboratory Results - last 24 hr 11/15/20 11/15/20 11/15/20 14:06 18:11 Unknown Magnesium 4.80 H 4.50 H Coronavirus (PCR) 11/16/20 00:15 Magnesium 4.00 H Coronavirus (PCR)
[2020-11-16] MEDS: DOCUSATE SODIUM 100 MG CAP PO SCH (10:42)
[2020-11-16] MEDS: PRENATAL VIT27-FE FUMARATE-FOLIC ACID VIT TAB PO SCH (10:43)
--- NOTE | 2020-11-17 08:42 | Progress Note ---
Assessment and Plan Patient sitting up in bed without complaints this am. Denies pain, ctx, SROM or vag bleeding; reports + FM. A: IUP at 23 weeks gestation - s/p Magnesium sulfate - BMZ complete - EFW 1lb 6 oz 11/14/2020 +Cervical shortening /incompetence -History of PTD at 25 weeks -Prior CSx2 ( LTCS x 1, Classical x1 ) +Maternal obesity + Antibody titer in providers office -repeat antibody scan positive Anti-c Rec: Continue to monitor for labor, ROM Serial growth scans testing at 28 weeks gestation - Patient Problems (1) 23 weeks gestation of Current Visit: Yes Status: Acute (2) Abnormal antibody titer Current Visit: Yes Status: Acute (3) Body mass index (BMI) greater than 40 Current Visit: Yes Status: Chronic (4) 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 Current Visit: Yes Status: Chronic Qualifiers: Previous scar type: vertical uterine incision (5) Short cervix during in second trimester Current Visit: No Status: Acute Subjective - Subjective Date of service: 11/17/20 Principal diagnosis: IUP@ 23w incompetent cervix Patient reports: movement normal, no new complaints, no loss of fluid, no vaginal bleeding, no contractions Objective - Vital Signs Vital Signs: Vital Signs - 12hr 11/16/20 11/16/20 11/16/20 23:47 23:48 23:53 Temperature 98.7 F Pulse Rate 94 H 93 H Respiratory 18 Rate Blood Pressure 116/64 O2 Sat by Pulse 96 Oximetry 11/17/20 11/17/20 11/17/20 06:04 07:11 07:28 Temperature 98.4 F Pulse Rate 82 86 Respiratory 18 Rate Blood Pressure 110/58 111/70 O2 Sat by Pulse Oximetry - Exam Breasts: deferred Cardiovascular: Regular rate Lungs: Normal air movement Abdomen: Present: normal appearance, soft Uterus: Present: normal FHR: auscultation normal, category 1, category 2 Uterine Contraction Monitor Mode: External Uterine Contraction Pattern: Absent Uterine Tone Measurement Phase: Resting Extremities: normal - Labs Labs: Abnormal Labs 11/14/20 11/15/20 11/15/20 19:22 00:04 05:50 WBC 13.0 H MCHC 35 H RDW 15.5 H Seg Neutrophils % 74.2 H Seg Neutrophils # 9.6 H Magnesium 4.00 H 4.50 H 11/15/20 11/15/20 11/16/20 14:06 18:11 00:15 WBC MCHC RDW Seg Neutrophils % Seg Neutrophils # Magnesium 4.80 H 4.50 H 4.00 H Laboratory Results - last 24 hr 11/14/20 19:39 Antibody Identification Anti-c
[2020-11-17] MEDS: DOCUSATE SODIUM 100 MG CAP PO SCH (10:07)
[2020-11-17] MEDS: PRENATAL VIT27-FE FUMARATE-FOLIC ACID VIT TAB PO SCH (10:07)
[2020-11-17 22:11] LABS: Hematocrit 32.9 % (30.3-42.9); Hemoglobin 11.4 gm/dl (10.1-14.3); Mean Corpuscular HGB Conc 35 % (30-34); Mean Corpuscular Volume 85 fl (79-97); Platelet Count 372 K/mm3 (140-440); Red Blood Count 3.88 M/mm3 (3.65-5.03); Red Cell Distribution Width 15.8 % (13.2-15.2)
--- NOTE | 2020-11-18 08:47 | Progress Note ---
Assessment and Plan A: Cervical shortening /incompetence, history of PTD at 25 weeks, prior CSx2 ( LTCS x 1, Classical x1 ), + Antibody titer (Anti-C). - Patient Problems (1) 23 weeks gestation of Current Visit: Yes Status: Acute Plan to address problem: Continue to monitor status through NSTs. Every 6 hrs for 1 hr. EFW on 11/14 was 1 lb 6 ozs. (2) Abnormal antibody titer Current Visit: Yes Status: Acute Plan to address problem: Antibody titers repeated on 11/17: Anti-C. If needed blood available in blood bank. (3) Short cervix during in second trimester Current Visit: No Status: Acute Plan to address problem: Continue to monitor for labor, ROM Mag infusion completed. BMZ completed. Serial growth scans testing at 28 weeks gestation Subjective - Subjective Date of service: 11/18/20 (Pt doing well) Principal diagnosis: IUP@ 23w incompetent cervix Patient reports: movement normal, no new complaints, no loss of fluid, no vaginal bleeding, no contractions Objective - Vital Signs Vital Signs: Vital Signs - 12hr 11/18/20 11/18/20 11/18/20 00:40 05:59 07:50 Temperature 98.4 F Pulse Rate 106 H 87 97 H Respiratory 20 Rate Blood Pressure 104/57 125/59 124/68 - Exam Narrative Exam: Pt denies vaginal bleeding, LOF, ctxs. We discussed should any of these symptoms occur, she will need to tell the RN immediately. Breasts: deferred Cardiovascular: Regular rate Lungs: Normal air movement Abdomen: Present: normal appearance, soft FHR: other (Has been appropriate for gestational age. ) Uterine Contraction Monitor Mode: External (No contractions on monitor noted during NST's.) Uterine Contraction Pattern: Absent - Labs Labs: Abnormal Labs 11/14/20 11/15/20 11/15/20 19:22 00:04 05:50 WBC 13.0 H MCHC 35 H RDW 15.5 H Seg Neutrophils % 74.2 H Seg Neutrophils # 9.6 H Magnesium 4.00 H 4.50 H Crossmatch 11/15/20 11/15/20 11/16/20 14:06 18:11 00:15 WBC MCHC RDW Seg Neutrophils % Seg Neutrophils # Magnesium 4.80 H 4.50 H 4.00 H Crossmatch 11/17/20 11/17/20 21:50 21:50 WBC 14.0 H MCHC 35 H RDW 15.8 H Seg Neutrophils % Seg Neutrophils # Magnesium Crossmatch See Detail Laboratory Results - last 24 hr 11/17/20 11/17/20 21:50 21:50 WBC 14.0 H RBC 3.88 Hgb 11.4 Hct 32.9 MCV 85 MCH 29 MCHC 35 H RDW 15.8 H Plt Count 372 Blood Type O POSITIVE Antibody Screen Positive Antibody Identification Anti-c Crossmatch See Detail
--- NOTE | 2020-11-18 09:20 | Progress Note ---
Assessment and Plan A: IUP at 23 1/7 weeks gestation - s/p BMZ - EFW 1lb 6 oz 11/14/2020 Cervical shortening /incompetence History of PTD at 25 weeks Prior CSx2 ( LTCS x 1, Classical x1 ) Maternal obesity anti c antibody titer Rec: Continue to monitor for labor, ROM Serial growth scans testing at 28 weeks gestation Subjective - Subjective Date of service: 11/18/20 Principal diagnosis: IUP@ 23 1/7w incompetent cervix Interval history: She denies contractions, bleeding, LOF ,abdominal pain Patient reports: movement normal, no new complaints, no loss of fluid, no vaginal bleeding, no contractions Objective - Vital Signs Vital Signs: Vital Signs - 12hr 11/18/20 11/18/20 11/18/20 00:40 05:59 07:50 Temperature 98.4 F 98.4 F Pulse Rate 106 H 87 97 H Respiratory 20 18 Rate Blood Pressure 104/57 125/59 124/68 - Exam Narrative Exam: laying in bed for NST Abdomen: Present: normal appearance, soft Uterus: Present: normal Extremities: normal - Labs Labs: Abnormal Labs 11/14/20 11/15/20 11/15/20 19:22 00:04 05:50 WBC 13.0 H MCHC 35 H RDW 15.5 H Seg Neutrophils % 74.2 H Seg Neutrophils # 9.6 H Magnesium 4.00 H 4.50 H Crossmatch 11/15/20 11/15/20 11/16/20 14:06 18:11 00:15 WBC MCHC RDW Seg Neutrophils % Seg Neutrophils # Magnesium 4.80 H 4.50 H 4.00 H Crossmatch 11/17/20 11/17/20 21:50 21:50 WBC 14.0 H MCHC 35 H RDW 15.8 H Seg Neutrophils % Seg Neutrophils # Magnesium Crossmatch See Detail Laboratory Results - last 24 hr 11/17/20 11/17/20 21:50 21:50 WBC 14.0 H RBC 3.88 Hgb 11.4 Hct 32.9 MCV 85 MCH 29 MCHC 35 H RDW 15.8 H Plt Count 372 Blood Type O POSITIVE Antibody Screen Positive Antibody Identification Anti-c Crossmatch See Detail
[2020-11-18] MEDS: PRENATAL VIT27-FE FUMARATE-FOLIC ACID VIT TAB PO SCH (09:57)
[2020-11-18] MEDS: DOCUSATE SODIUM 100 MG CAP PO SCH (09:58)
--- NOTE | 2020-11-19 10:04 | Progress Note ---
Assessment and Plan A: 25 y.o. @ 23.2 wks with Cervical shortening /incompetence, history of PTD at 25 weeks, prior CSx2 ( LTCS x 1, Classical x1 ), + Antibody titer (Anti-C). - Patient Problems (1) 23 weeks gestation of Current Visit: Yes Status: Acute Plan to address problem: Continue to monitor status through NSTs. Every 6 hrs for 1 hr. EFW on 11/14 was 1 lb 6 ozs. (2) Abnormal antibody titer Current Visit: Yes Status: Acute Plan to address problem: Antibody titers repeated on 11/17: Anti-C. If needed blood available in blood bank. (3) Short cervix during in second trimester Current Visit: No Status: Acute Plan to address problem: Continue to monitor for labor, ROM Mag infusion completed. BMZ completed. Serial growth scans testing at 28 weeks gestation Subjective - Subjective Date of service: 11/19/20 (Pt doing well. ) Principal diagnosis: IUP@ 23.2 wks (EDC 03/16/2021) incompetent cervix Patient reports: movement normal, no new complaints, no loss of fluid, no vaginal bleeding, no contractions Objective - Vital Signs Vital Signs: Vital Signs - 12hr 11/19/20 11/19/20 00:15 08:48 Temperature 98.8 F 98.4 F Pulse Rate 87 108 H Respiratory 18 Rate Blood Pressure 111/67 119/72 Blood Pressure 119/72 [Left] O2 Sat by Pulse 99 Oximetry - Exam Narrative Exam: Pt doing well. Assessment at this time remains unchanged. Pt continues to deny vaginal bleeding, LOF, ctxs. Discussed plan of care for the day and pt verbalized understanding. Breasts: deferred Cardiovascular: Regular rate Lungs: Normal air movement Abdomen: Present: normal appearance, soft FHR: other (NST, appropriate for gestational age. ) Uterine Contraction Monitor Mode: External Uterine Contraction Pattern: Absent - Labs Labs: Abnormal Labs 11/14/20 11/15/20 11/15/20 19:22 00:04 05:50 WBC 13.0 H MCHC 35 H RDW 15.5 H Seg Neutrophils % 74.2 H Seg Neutrophils # 9.6 H Magnesium 4.00 H 4.50 H Crossmatch 11/15/20 11/15/20 11/16/20 14:06 18:11 00:15 WBC MCHC RDW Seg Neutrophils % Seg Neutrophils # Magnesium 4.80 H 4.50 H 4.00 H Crossmatch 11/17/20 11/17/20 21:50 21:50 WBC 14.0 H MCHC 35 H RDW 15.8 H Seg Neutrophils % Seg Neutrophils # Magnesium Crossmatch See Detail
[2020-11-19] MEDS: PRENATAL VIT27-FE FUMARATE-FOLIC ACID VIT TAB PO SCH (10:12)
[2020-11-19] MEDS: DOCUSATE SODIUM 100 MG CAP PO SCH (10:13)
--- NOTE | 2020-11-20 08:13 | Progress Note ---
Assessment and Plan Patient sitting up in bed without complaints at this time. Denies pain, ctx, SROM or vag bleeding; reports + FM. RN at bedside to begin NST. POC reviewed. 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 Current Visit: Yes Status: Chronic Qualifiers: Previous scar type: vertical uterine incision (5) Short cervix during in second trimester Current Visit: No Status: Acute Subjective - Subjective Date of service: 11/20/20 Principal diagnosis: IUP@ 23.3 wks (EDC 03/16/2021) incompetent cervix Patient reports: movement normal, no new complaints, no loss of fluid, no vaginal bleeding, no contractions Objective - Vital Signs Vital Signs: Vital Signs - 12hr 11/20/20 11/20/20 11/20/20 00:21 00:22 00:24 Temperature 98.3 F Pulse Rate 96 H 74 Respiratory 16 Rate Blood Pressure 104/59 Blood Pressure 104/59 [Left] Blood Pressure 99/52 [Right] O2 Sat by Pulse 81 L 96 Oximetry 11/20/20 11/20/20 11/20/20 00:26 00:27 08:03 Temperature Pulse Rate 90 105 H 104 H Respiratory Rate Blood Pressure 99/52 112/70 Blood Pressure [Left] Blood Pressure [Right] O2 Sat by Pulse 86 96 Oximetry 11/20/20 08:04 Temperature Pulse Rate 73 Respiratory Rate Blood Pressure Blood Pressure [Left] Blood Pressure [Right] O2 Sat by Pulse 86 Oximetry - Exam Cardiovascular: Regular rate Lungs: Normal air movement Abdomen: Present: normal appearance, soft Uterus: Present: normal Uterine Contraction Monitor Mode: Palpation Uterine Contraction Pattern: Absent Uterine Tone Measurement Phase: Resting Extremities: normal - Labs Labs: Abnormal Labs 11/14/20 11/15/20 11/15/20 19:22 00:04 05:50 WBC 13.0 H MCHC 35 H RDW 15.5 H Seg Neutrophils % 74.2 H Seg Neutrophils # 9.6 H Magnesium 4.00 H 4.50 H Crossmatch 11/15/20 11/15/20 11/16/20 14:06 18:11 00:15 WBC MCHC RDW Seg Neutrophils % Seg Neutrophils # Magnesium 4.80 H 4.50 H 4.00 H Crossmatch 11/17/20 11/17/20 21:50 21:50 WBC 14.0 H MCHC 35 H RDW 15.8 H Seg Neutrophils % Seg Neutrophils # Magnesium Crossmatch See Detail
--- NOTE | 2020-11-20 09:28 | Progress Note ---
Assessment and Plan A: IUP at 23 3/7 weeks gestation - s/p BMZ - EFW 1lb 6 oz 11/14/2020 Cervical shortening /incompetence History of PTD at 25 weeks Prior CSx2 ( LTCS x 1, Classical x1 ) Maternal obesity anti c antibody titer Rec: Continue to monitor for labor, ROM Serial growth scans testing at 28 weeks gestation Subjective - Subjective Date of service: 11/20/20 Principal diagnosis: IUP@ 23.3 wks (EDC 03/16/2021) incompetent cervix Interval history: She denies contractions, bleeding, LOF ,abdominal pain Patient reports: movement normal, no new complaints, no loss of fluid, no vaginal bleeding, no contractions Objective - Vital Signs Vital Signs: Vital Signs - 12hr 11/20/20 11/20/20 11/20/20 00:21 00:22 00:24 Temperature 98.3 F Pulse Rate 96 H 74 Respiratory 16 Rate Blood Pressure 104/59 Blood Pressure 104/59 [Left] Blood Pressure 99/52 [Right] O2 Sat by Pulse 81 L 96 Oximetry 11/20/20 11/20/20 11/20/20 00:26 00:27 08:03 Temperature Pulse Rate 90 105 H 104 H Respiratory Rate Blood Pressure 99/52 112/70 Blood Pressure [Left] Blood Pressure [Right] O2 Sat by Pulse 86 96 Oximetry 11/20/20 11/20/20 08:04 08:34 Temperature 98.4 F Pulse Rate 73 89 Respiratory 18 Rate Blood Pressure Blood Pressure [Left] Blood Pressure [Right] O2 Sat by Pulse 86 88 Oximetry - Exam Narrative Exam: NAD laying in bed for NST Abdomen: Present: normal appearance, soft FHR: category 1 Uterine Contraction Pattern: Absent - Labs Labs: Abnormal Labs 11/14/20 11/15/20 11/15/20 19:22 00:04 05:50 WBC 13.0 H MCHC 35 H RDW 15.5 H Seg Neutrophils % 74.2 H Seg Neutrophils # 9.6 H Magnesium 4.00 H 4.50 H Crossmatch 11/15/20 11/15/20 11/16/20 14:06 18:11 00:15 WBC MCHC RDW Seg Neutrophils % Seg Neutrophils # Magnesium 4.80 H 4.50 H 4.00 H Crossmatch 11/17/20 11/17/20 21:50 21:50 WBC 14.0 H MCHC 35 H RDW 15.8 H Seg Neutrophils % Seg Neutrophils # Magnesium Crossmatch See Detail
[2020-11-20] MEDS: DOCUSATE SODIUM 100 MG CAP PO SCH (09:48)
[2020-11-20] MEDS: PRENATAL VIT27-FE FUMARATE-FOLIC ACID VIT TAB PO SCH (09:48)
--- NOTE | 2020-11-21 07:25 | Progress Note ---
Assessment and Plan A: 25 y.o. @ 23.4 wks with Cervical shortening /incompetence, history of PTD at 25 weeks, prior CSx2 ( LTCS x 1, Classical x1 ), + Antibody titer (Anti-C). - Patient Problems (1) 23 weeks gestation of Current Visit: Yes Status: Acute Plan to address problem: Continue to monitor status through NSTs. Every 6 hrs for 1 hr. EFW on 11/14 was 1 lb 6 ozs. (2) Abnormal antibody titer Current Visit: Yes Status: Acute Plan to address problem: Antibody titers repeated on 11/17: Anti-C. If needed blood available in blood bank. (3) Short cervix during in second trimester Current Visit: No Status: Acute Plan to address problem: Continue to monitor for labor, ROM Mag infusion completed. BMZ completed. Serial growth scans testing at 28 weeks gestation Subjective - Subjective Date of service: 11/21/20 (Pt continues to do well. ) Principal diagnosis: IUP@ 23.4 wks (EDC 03/16/2021) incompetent cervix Patient reports: movement normal, no new complaints, no loss of fluid, no vaginal bleeding, no contractions Objective - Vital Signs Vital Signs: Vital Signs - 12hr 11/20/20 11/21/20 11/21/20 23:59 00:00 04:04 Temperature 98.3 F 98.1 F Pulse Rate 96 H Respiratory 18 18 Rate Blood Pressure 113/65 - Exam Narrative Exam: Pt doing well. Denies vaginal bleeding, LOF, ctxs. Pt has been instructed if this s/sx occur to let RN know immediately. Breasts: deferred Cardiovascular: Regular rate Lungs: Normal air movement Abdomen: Present: normal appearance, soft FHR: other (NSTs have been appropriate for gestational age. ) Uterine Contraction Monitor Mode: External Uterine Contraction Pattern: Absent Extremities: normal - Labs Labs: Abnormal Labs 11/14/20 11/15/20 11/15/20 19:22 00:04 05:50 WBC 13.0 H MCHC 35 H RDW 15.5 H Seg Neutrophils % 74.2 H Seg Neutrophils # 9.6 H Magnesium 4.00 H 4.50 H Crossmatch 11/15/20 11/15/20 11/16/20 14:06 18:11 00:15 WBC MCHC RDW Seg Neutrophils % Seg Neutrophils # Magnesium 4.80 H 4.50 H 4.00 H Crossmatch 11/17/20 11/17/20 21:50 21:50 WBC 14.0 H MCHC 35 H RDW 15.8 H Seg Neutrophils % Seg Neutrophils # Magnesium Crossmatch See Detail
[2020-11-21] MEDS: PRENATAL VIT27-FE FUMARATE-FOLIC ACID VIT TAB PO SCH (09:42)
[2020-11-21] MEDS: DOCUSATE SODIUM 100 MG CAP PO SCH (09:42)
--- NOTE | 2020-11-22 07:47 | Progress Note ---
Assessment and Plan pt resting, no complaints of labor; denies cramping, SROM or vag bleeding. Pt reports active FM. 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 Current Visit: Yes Status: Chronic Qualifiers: Previous scar type: vertical uterine incision (3) Short cervix during in second trimester Current Visit: No Status: Acute (4) Abnormal antibody titer Current Visit: Yes Status: Acute Plan to address problem: Blood bank with current type and screen (5) 23 weeks gestation of Current Visit: Yes Status: Acute Subjective - Subjective Date of service: 11/22/20 Principal diagnosis: IUP@ 23.5 wks ([facility] 03/16/2021) incompetent cervix Patient reports: movement normal, no new complaints, no loss of fluid, no vaginal bleeding, no contractions Objective - Vital Signs Vital Signs: Vital Signs - 12hr 11/21/20 11/21/20 11/22/20 23:37 23:39 01:41 Temperature 98.4 F Pulse Rate 100 H Respiratory 20 Rate Blood Pressure 121/80 Blood Pressure 121/80 [Left] O2 Sat by Pulse 99 85 85 Oximetry 11/22/20 11/22/20 11/22/20 01:42 01:46 01:51 Temperature Pulse Rate 86 102 H Respiratory Rate Blood Pressure Blood Pressure [Left] O2 Sat by Pulse 78 L 96 98 Oximetry 11/22/20 11/22/20 11/22/20 01:56 02:01 02:06 Temperature Pulse Rate 104 H 82 89 Respiratory Rate Blood Pressure Blood Pressure [Left] O2 Sat by Pulse 99 97 99 Oximetry 11/22/20 11/22/20 11/22/20 02:11 02:16 02:21 Temperature Pulse Rate 96 H 89 91 H Respiratory Rate Blood Pressure Blood Pressure [Left] O2 Sat by Pulse 99 99 98 Oximetry 11/22/20 11/22/2011/22/21 02:26 02:31 02:36 Temperature Pulse Rate 87 97 H 94 H Respiratory Rate Blood Pressure Blood Pressure [Left] O2 Sat by Pulse 96 96 98 Oximetry 11/22/20 11/22/20 11/22/20 02:41 02:46 02:51 Temperature Pulse Rate 93 H 103 H 107 H Respiratory Rate Blood Pressure Blood Pressure [Left] O2 Sat by Pulse 99 98 96 Oximetry 11/22/20 11/22/20 11/22/20 02:56 03:01 03:06 Temperature Pulse Rate 88 97 H 91 H Respiratory Rate Blood Pressure Blood Pressure [Left] O2 Sat by Pulse 91 99 99 Oximetry 11/22/20 11/22/20 11/22/20 03:11 03:16 03:32 Temperature Pulse Rate 96 H 96 H 105 H Respiratory Rate Blood Pressure Blood Pressure [Left] O2 Sat by Pulse 98 98 83 L Oximetry - Exam Cardiovascular: Regular rate Lungs: Normal air movement Abdomen: Present: normal appearance, soft Uterus: Present: normal FHR: auscultation normal Uterine Contraction Monitor Mode: Palpation Uterine Contraction Pattern: Absent Uterine Tone Measurement Phase: Resting Extremities: normal - Labs Labs: Abnormal Labs 11/14/20 11/15/20 11/15/20 19:22 00:04 05:50 WBC 13.0 H MCHC 35 H RDW 15.5 H Seg Neutrophils % 74.2 H Seg Neutrophils # 9.6 H Magnesium 4.00 H 4.50 H Crossmatch 11/15/20 11/15/20 11/16/20 14:06 18:11 00:15 WBC MCHC RDW Seg Neutrophils % Seg Neutrophils # Magnesium 4.80 H 4.50 H 4.00 H Crossmatch 11/17/20 11/17/20 21:50 21:50 WBC 14.0 H MCHC 35 H RDW 15.8 H Seg Neutrophils % Seg Neutrophils # Magnesium Crossmatch See Detail Laboratory Results - last 24 hr 11/17/20 21:50 Crossmatch See Detail
[2020-11-22] MEDS: PRENATAL VIT27-FE FUMARATE-FOLIC ACID VIT TAB PO SCH (10:02)
[2020-11-22] MEDS: DOCUSATE SODIUM 100 MG CAP PO SCH (10:03)
--- NOTE | 2020-11-22 16:53 | Event Note ---
Date: 11/22/20 Blood bank called re: type and screen. Type and screen has , labor is not eminent. technical coordinator states Anti-c blood is not difficult to find and will not take very long to obtain if/when needed. Will hold re-draw of type and screen at this time.
--- NOTE | 2020-11-23 07:40 | Progress Note ---
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 Current Visit: Yes Status: Chronic Qualifiers: Previous scar type: vertical uterine incision (5) Short cervix during in second trimester Current Visit: No Status: Acute Subjective - Subjective Principal diagnosis: IUP@ 23.5 wks ([facility] 03/16/2021) incompetent cervix Patient reports: movement normal, no new complaints, no loss of fluid, no vaginal bleeding, no contractions Objective - Vital Signs Vital Signs: Vital Signs - 12hr 11/22/20 11/22/20 11/22/20 23:35 23:48 23:49 Temperature 98.7 F Pulse Rate 110 H 109 H 76 Respiratory 20 Rate Blood Pressure 112/64 Blood Pressure 112/64 [Left] O2 Sat by Pulse 98 85 Oximetry 11/22/20 11/22/20 11/23/20 23:53 23:58 00:03 Temperature Pulse Rate 110 H 106 H 111 H Respiratory Rate Blood Pressure Blood Pressure [Left] O2 Sat by Pulse 98 97 98 Oximetry 11/23/20 11/23/20 11/23/20 00:08 00:13 00:18 Temperature Pulse Rate 113 H 112 H 107 H Respiratory Rate Blood Pressure Blood Pressure [Left] O2 Sat by Pulse 98 97 98 Oximetry 11/23/20 11/23/20 11/23/20 00:23 00:28 00:33 Temperature Pulse Rate 112 H 116 H 111 H Respiratory Rate Blood Pressure Blood Pressure [Left] O2 Sat by Pulse 96 97 96 Oximetry 11/23/20 11/23/20 11/23/20 00:38 00:43 00:48 Temperature Pulse Rate 111 H 119 H 110 H Respiratory Rate Blood Pressure Blood Pressure [Left] O2 Sat by Pulse 96 97 97 Oximetry 11/23/20 11/23/20 11/23/20 00:53 00:58 01:03 Temperature Pulse Rate 102 H 111 H 115 H Respiratory Rate Blood Pressure Blood Pressure [Left] O2 Sat by Pulse 97 97 97 Oximetry 11/23/20 11/23/20 11/23/20 01:08 01:13 06:25 Temperature Pulse Rate 107 H 109 H 184 H Respiratory Rate Blood Pressure Blood Pressure [Left] O2 Sat by Pulse 96 97 80 L Oximetry 11/23/20 11/23/20 11/23/20 06:28 06:33 06:38 Temperature Pulse Rate 105 H 107 H 106 H Respiratory Rate Blood Pressure Blood Pressure [Left] O2 Sat by Pulse 92 97 97 Oximetry 11/23/20 11/23/20 11/23/20 06:39 06:43 06:48 Temperature Pulse Rate 119 H 101 H 107 H Respiratory Rate Blood Pressure Blood Pressure [Left] O2 Sat by Pulse 93 97 97 Oximetry 11/23/20 11/23/20 11/23/20 06:53 06:55 06:58 Temperature Pulse Rate 107 H 117 H 96 H Respiratory Rate Blood Pressure Blood Pressure [Left] O2 Sat by Pulse 98 93 96 Oximetry 11/23/20 11/23/20 11/23/20 07:00 07:03 07:06 Temperature Pulse Rate 107 H 112 H 95 H Respiratory Rate Blood Pressure Blood Pressure [Left] O2 Sat by Pulse 93 96 91 Oximetry 11/23/20 11/23/20 11/23/20 07:08 07:12 07:13 Temperature Pulse Rate 100 H 105 H 108 H Respiratory Rate Blood Pressure Blood Pressure [Left] O2 Sat by Pulse 96 92 97 Oximetry 11/23/20 11/23/20 11/23/20 07:18 07:23 07:28 Temperature Pulse Rate 101 H 105 H 111 H Respiratory Rate Blood Pressure Blood Pressure [Left] O2 Sat by Pulse 98 98 96 Oximetry 11/23/20 11/23/20 11/23/20 07:33 07:36 07:38 Temperature Pulse Rate 100 H 93 H 107 H Respiratory Rate Blood Pressure Blood Pressure [Left] O2 Sat by Pulse 95 94 98 Oximetry - Labs Labs: Abnormal Labs 11/14/20 11/15/20 11/15/20 19:22 00:04 05:50 WBC 13.0 H MCHC 35 H RDW 15.5 H Seg Neutrophils % 74.2 H Seg Neutrophils # 9.6 H Magnesium 4.00 H 4.50 H Crossmatch 11/15/20 11/15/20 11/16/20 14:06 18:11 00:15 WBC MCHC RDW Seg Neutrophils % Seg Neutrophils # Magnesium 4.80 H 4.50 H 4.00 H Crossmatch 11/17/20 11/17/20 21:50 21:50 WBC 14.0 H MCHC 35 H RDW 15.8 H Seg Neutrophils % Seg Neutrophils # Magnesium Crossmatch See Detail
--- NOTE | 2020-11-23 07:47 | Progress Note ---
Assessment and Plan A: IUP at 23 6/7 weeks gestation - s/p BMZ - EFW 1lb 6 oz 11/14/2020 Cervical shortening /incompetence History of PTD at 25 weeks Prior CSx2 ( LTCS x 1, Classical x1 ) Maternal obesity Pos antibody screen : anti c Rec: Continue to monitor for labor, ROM RN to but pt back on the NST monitor for 10 more min to complete the tracing , rule out decels Serial growth scans testing at 28 weeks gestation Subjective - Subjective Date of service: 11/23/20 Principal diagnosis: IUP@ 23.6 wks (EDC 03/16/2021) incompetent cervix Interval history: She denies contractions, bleeding, LOF ,abdominal pain Patient reports: movement normal, no new complaints, no loss of fluid, no vaginal bleeding, no contractions Objective - Vital Signs Vital Signs: Vital Signs - 12hr 11/22/20 11/22/20 11/22/20 23:35 23:48 23:49 Temperature 98.7 F Pulse Rate 110 H 109 H 76 Respiratory 20 Rate Blood Pressure 112/64 Blood Pressure 112/64 [Left] O2 Sat by Pulse 98 85 Oximetry 11/22/20 11/22/20 11/23/20 23:53 23:58 00:03 Temperature Pulse Rate 110 H 106 H 111 H Respiratory Rate Blood Pressure Blood Pressure [Left] O2 Sat by Pulse 98 97 98 Oximetry 11/23/20 11/23/20 11/23/20 00:08 00:13 00:18 Temperature Pulse Rate 113 H 112 H 107 H Respiratory Rate Blood Pressure Blood Pressure [Left] O2 Sat by Pulse 98 97 98 Oximetry 11/23/20 11/23/20 11/23/20 00:23 00:28 00:33 Temperature Pulse Rate 112 H 116 H 111 H Respiratory Rate Blood Pressure Blood Pressure [Left] O2 Sat by Pulse 96 97 96 Oximetry 11/23/20 11/23/20 11/23/20 00:38 00:43 00:48 Temperature Pulse Rate 111 H 119 H 110 H Respiratory Rate Blood Pressure Blood Pressure [Left] O2 Sat by Pulse 96 97 97 Oximetry 11/23/20 11/23/20 11/23/20 00:53 00:58 01:03 Temperature Pulse Rate 102 H 111 H 115 H Respiratory Rate Blood Pressure Blood Pressure [Left] O2 Sat by Pulse 97 97 97 Oximetry 11/23/20 11/23/20 11/23/20 01:08 01:13 06:25 Temperature Pulse Rate 107 H 109 H 184 H Respiratory Rate Blood Pressure Blood Pressure [Left] O2 Sat by Pulse 96 97 80 L Oximetry 11/23/20 11/23/20 11/23/20 06:28 06:33 06:38 Temperature Pulse Rate 105 H 107 H 106 H Respiratory Rate Blood Pressure Blood Pressure [Left] O2 Sat by Pulse 92 97 97 Oximetry 11/23/20 11/23/20 11/23/20 06:39 06:43 06:48 Temperature Pulse Rate 119 H 101 H 107 H Respiratory Rate Blood Pressure Blood Pressure [Left] O2 Sat by Pulse 93 97 97 Oximetry 11/23/20 11/23/20 11/23/20 06:53 06:55 06:58 Temperature Pulse Rate 107 H 117 H 96 H Respiratory Rate Blood Pressure Blood Pressure [Left] O2 Sat by Pulse 98 93 96 Oximetry 11/23/20 11/23/20 11/23/20 07:00 07:03 07:06 Temperature Pulse Rate 107 H 112 H 95 H Respiratory Rate Blood Pressure Blood Pressure [Left] O2 Sat by Pulse 93 96 91 Oximetry 11/23/20 11/23/20 11/23/20 07:08 07:12 07:13 Temperature Pulse Rate 100 H 105 H 108 H Respiratory Rate Blood Pressure Blood Pressure [Left] O2 Sat by Pulse 96 92 97 Oximetry 11/23/20 11/23/20 11/23/20 07:18 07:23 07:28 Temperature Pulse Rate 101 H 105 H 111 H Respiratory Rate Blood Pressure Blood Pressure [Left] O2 Sat by Pulse 98 98 96 Oximetry 11/23/20 11/23/20 11/23/20 07:33 07:36 07:38 Temperature Pulse Rate 100 H 93 H 107 H Respiratory Rate Blood Pressure Blood Pressure [Left] O2 Sat by Pulse 95 94 98 Oximetry 11/23/20 07:43 Temperature Pulse Rate 64 Respiratory Rate Blood Pressure Blood Pressure [Left] O2 Sat by Pulse 82 L Oximetry - Exam Narrative Exam: laying in bed FHR: other (tracing reviewed , discontinous area noted at the end of tracing ) Uterine Contraction Pattern: Absent Extremities: normal - Labs Labs: Abnormal Labs 11/14/20 11/15/20 11/15/20 19:22 00:04 05:50 WBC 13.0 H MCHC 35 H RDW 15.5 H Seg Neutrophils % 74.2 H Seg Neutrophils # 9.6 H Magnesium 4.00 H 4.50 H Crossmatch 11/15/20 11/15/20 11/16/20 14:06 18:11 00:15 WBC MCHC RDW Seg Neutrophils % Seg Neutrophils # Magnesium 4.80 H 4.50 H 4.00 H Crossmatch 11/17/20 11/17/20 21:50 21:50 WBC 14.0 H MCHC 35 H RDW 15.8 H Seg Neutrophils % Seg Neutrophils # Magnesium Crossmatch See Detail
--- NOTE | 2020-11-23 08:13 | Progress Note ---
Assessment and Plan Patient laying in bed, smiling, and without complaints at this time. Denies pain, ctx, SROM or vag bleeding; reports + FM. CAT1 FHT's at this time and strip reviewed with RN. POC reviewed with pt. A: IUP at 24 weeks gestation - s/p BMZ & Magnesium sulfate - EFW 1lb 6 oz on 11/14/2020 +Cervical shortening /incompetence -History of PTD at 25 weeks -Prior CSx2 ( LTCS x 1, Classical x1 ) +Maternal obesity + Anti-c Antibody on 11/17/20 Blood available in blood bank if needed Rec: Continue to monitor for labor, ROM Serial growth scans testing at 28 weeks gestation - Patient Problems (1) 23 weeks gestation of Current Visit: Yes Status: Acute (2) Abnormal antibody titer Current Visit: Yes Status: Acute (3) Body mass index (BMI) greater than 40 Current Visit: Yes Status: Chronic (4) 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 Current Visit: Yes Status: Chronic Qualifiers: Previous scar type: vertical uterine incision (5) Short cervix during in second trimester Current Visit: No Status: Acute Subjective - Subjective Date of service: 11/23/20 Principal diagnosis: IUP@ 24 wks (EDC 03/16/2021) incompetent cervix Patient reports: movement normal, no new complaints, no loss of fluid, no vaginal bleeding, no contractions Objective - Vital Signs Vital Signs: Vital Signs - 12hr 11/22/20 11/22/20 11/22/20 23:35 23:48 23:49 Temperature 98.7 F Pulse Rate 110 H 109 H 76 Respiratory 20 Rate Blood Pressure 112/64 Blood Pressure 112/64 [Left] O2 Sat by Pulse 98 85 Oximetry 11/22/20 11/22/20 11/23/20 23:53 23:58 00:03 Temperature Pulse Rate 110 H 106 H 111 H Respiratory Rate Blood Pressure Blood Pressure [Left] O2 Sat by Pulse 98 97 98 Oximetry 11/23/20 11/23/20 11/23/20 00:08 00:13 00:18 Temperature Pulse Rate 113 H 112 H 107 H Respiratory Rate Blood Pressure Blood Pressure [Left] O2 Sat by Pulse 98 97 98 Oximetry 11/23/20 11/23/20 11/23/20 00:23 00:28 00:33 Temperature Pulse Rate 112 H 116 H 111 H Respiratory Rate Blood Pressure Blood Pressure [Left] O2 Sat by Pulse 96 97 96 Oximetry 11/23/20 11/23/20 11/23/20 00:38 00:43 00:48 Temperature Pulse Rate 111 H 119 H 110 H Respiratory Rate Blood Pressure Blood Pressure [Left] O2 Sat by Pulse 96 97 97 Oximetry 11/23/20 11/23/20 11/23/20 00:53 00:58 01:03 Temperature Pulse Rate 102 H 111 H 115 H Respiratory Rate Blood Pressure Blood Pressure [Left] O2 Sat by Pulse 97 97 97 Oximetry 11/23/20 11/23/20 11/23/20 01:08 01:13 06:25 Temperature Pulse Rate 107 H 109 H 184 H Respiratory Rate Blood Pressure Blood Pressure [Left] O2 Sat by Pulse 96 97 80 L Oximetry 11/23/20 11/23/20 11/23/20 06:28 06:33 06:38 Temperature Pulse Rate 105 H 107 H 106 H Respiratory Rate Blood Pressure Blood Pressure [Left] O2 Sat by Pulse 92 97 97 Oximetry 11/23/20 11/23/20 11/23/20 06:39 06:43 06:48 Temperature Pulse Rate 119 H 101 H 107 H Respiratory Rate Blood Pressure Blood Pressure [Left] O2 Sat by Pulse 93 97 97 Oximetry 11/23/20 11/23/20 11/23/20 06:53 06:55 06:58 Temperature Pulse Rate 107 H 117 H 96 H Respiratory Rate Blood Pressure Blood Pressure [Left] O2 Sat by Pulse 98 93 96 Oximetry 11/23/20 11/23/20 11/23/20 07:00 07:03 07:06 Temperature Pulse Rate 107 H 112 H 95 H Respiratory Rate Blood Pressure Blood Pressure [Left] O2 Sat by Pulse 93 96 91 Oximetry 11/23/20 11/23/20 11/23/20 07:08 07:12 07:13 Temperature Pulse Rate 100 H 105 H 108 H Respiratory Rate Blood Pressure Blood Pressure [Left] O2 Sat by Pulse 96 92 97 Oximetry 11/23/20 11/23/20 11/23/20 07:18 07:23 07:28 Temperature Pulse Rate 101 H 105 H 111 H Respiratory Rate Blood Pressure Blood Pressure [Left] O2 Sat by Pulse 98 98 96 Oximetry 11/23/20 11/23/20 11/23/20 07:33 07:36 07:38 Temperature Pulse Rate 100 H 93 H 107 H Respiratory Rate Blood Pressure Blood Pressure [Left] O2 Sat by Pulse 95 94 98 Oximetry 11/23/20 11/23/20 11/23/20 07:43 07:48 07:53 Temperature Pulse Rate 64 103 H 104 H Respiratory Rate Blood Pressure Blood Pressure [Left] O2 Sat by Pulse 82 L 97 99 Oximetry 11/23/20 11/23/20 07:59 08:06 Temperature 98.4 F Pulse Rate 99 H Respiratory 18 Rate Blood Pressure 109/69 Blood Pressure [Left] O2 Sat by Pulse Oximetry - Exam Breasts: deferred Cardiovascular: Regular rate Lungs: Normal air movement Abdomen: Present: normal appearance, soft Uterus: Present: normal. Absent: tenderness FHR: auscultation normal, category 1 (while CNM at bedside) Uterine Contraction Monitor Mode: External Uterine Contraction Pattern: Absent Uterine Tone Measurement Phase: Resting Extremities: normal - Labs Labs: Abnormal Labs 11/14/20 11/15/20 11/15/20 19:22 00:04 05:50 WBC 13.0 H MCHC 35 H RDW 15.5 H Seg Neutrophils % 74.2 H Seg Neutrophils # 9.6 H Magnesium 4.00 H 4.50 H Crossmatch 11/15/20 11/15/20 11/16/20 14:06 18:11 00:15 WBC MCHC RDW Seg Neutrophils % Seg Neutrophils # Magnesium 4.80 H 4.50 H 4.00 H Crossmatch 11/17/20 11/17/20 21:50 21:50 WBC 14.0 H MCHC 35 H RDW 15.8 H Seg Neutrophils % Seg Neutrophils # Magnesium Crossmatch See Detail
[2020-11-23] MEDS: DOCUSATE SODIUM 100 MG CAP PO SCH (09:34)
[2020-11-23] MEDS: PRENATAL VIT27-FE FUMARATE-FOLIC ACID VIT TAB PO SCH (09:35)
--- NOTE | 2020-11-24 07:45 | Progress Note ---
Assessment and Plan A: 25 y.o. @ 24 wks with Cervical shortening /incompetence, history of PTD at 25 weeks, prior CSx2 ( LTCS x 1, Classical x1 ), + Antibody titer (Anti-C). - Patient Problems (1) Abnormal antibody titer Current Visit: Yes Status: Acute Plan to address problem: Antibody titers repeated on 11/17: Anti-C. If needed blood available in blood bank. (2) Short cervix during in second trimester Current Visit: No Status: Acute Plan to address problem: Continue to monitor for labor, ROM S/p Mag infusion completed. S/p BMZ completed. (3) 24 weeks gestation of Current Visit: Yes Status: Acute Plan to address problem: Continue to monitor status through NSTs. Every 6 hrs for 1 hr. EFW on 11/14 was 1 lb 6 ozs. Serial growth scans: Next growth scan @ 28 weeks. testing at 28 weeks gestation Subjective - Subjective Date of service: 11/24/20 (Pt doing well. ) Principal diagnosis: IUP@ 24 wks (EDC 03/16/2021) incompetent cervix Patient reports: movement normal, no new complaints, no loss of fluid, no vaginal bleeding, no contractions Objective - Vital Signs Vital Signs: Vital Signs - 12hr 11/23/20 11/23/20 11/23/20 20:13 23:57 23:59 Temperature 98.9 F 98.1 F Pulse Rate 106 H 123 H Respiratory 18 18 Rate Blood Pressure 115/67 115/72 Blood Pressure 115/67 115/72 [Left] O2 Sat by Pulse 98 98 88 Oximetry 11/24/20 11/24/20 11/24/20 00:00 00:05 00:10 Temperature Pulse Rate 47 L 125 H 123 H Respiratory Rate Blood Pressure Blood Pressure [Left] O2 Sat by Pulse 98 99 99 Oximetry 11/24/20 11/24/20 11/24/20 00:15 00:20 00:25 Temperature Pulse Rate 122 H 117 H 121 H Respiratory Rate Blood Pressure Blood Pressure [Left] O2 Sat by Pulse 99 99 99 Oximetry 11/24/20 11/24/20 11/24/20 00:30 00:35 00:40 Temperature Pulse Rate 122 H 125 H 117 H Respiratory Rate Blood Pressure Blood Pressure [Left] O2 Sat by Pulse 99 99 99 Oximetry 0611/24/20 11/24/20 00:45 00:50 00:55 Temperature Pulse Rate 122 H 127 H 121 H Respiratory Rate Blood Pressure Blood Pressure [Left] O2 Sat by Pulse 99 99 99 Oximetry 11/24/20 11/24/20 11/24/20 04:14 04:15 05:57 Temperature 98.4 F Pulse Rate 108 H 97 H 68 Respiratory 18 Rate Blood Pressure 108/59 Blood Pressure 108/59 [Left] O2 Sat by Pulse 79 L 99 0 L Oximetry - Exam Narrative Exam: Pt denies vaginal bleeding, LOF, ctxs. Discussed should any of these occur, she should tell the RN immediately. Breasts: deferred Cardiovascular: Regular rate Lungs: Normal air movement Abdomen: Present: normal appearance, soft Uterus: Present: normal (Appropriate for uterus.) FHR: other (Appropriate for gestational age. ) Uterine Contraction Monitor Mode: External Uterine Contraction Pattern: Absent - Labs Labs: Abnormal Labs 11/14/20 11/15/20 11/15/20 19:22 00:04 05:50 WBC 13.0 H MCHC 35 H RDW 15.5 H Seg Neutrophils % 74.2 H Seg Neutrophils # 9.6 H Magnesium 4.00 H 4.50 H Crossmatch 11/15/20 11/15/20 11/16/20 14:06 18:11 00:15 WBC MCHC RDW Seg Neutrophils % Seg Neutrophils # Magnesium 4.80 H 4.50 H 4.00 H Crossmatch 11/17/20 11/17/20 21:50 21:50 WBC 14.0 H MCHC 35 H RDW 15.8 H Seg Neutrophils % Seg Neutrophils # Magnesium Crossmatch See Detail
[2020-11-24] MEDS: PRENATAL VIT27-FE FUMARATE-FOLIC ACID VIT TAB PO SCH (09:54)
[2020-11-24] MEDS: DOCUSATE SODIUM 100 MG CAP PO SCH (09:54)
--- NOTE | 2020-11-24 16:48 | Event Note ---
Date: 11/24/20 (Patient with tachycardia.) Received call from RN that patient's HR has increased. It was running in the 120-130's. Pt denies feeling chills, dizziness, shortness of breath, chest pain, feeling heart palpitations, SROM, and pain. Pt states that she normally has a higher heart rate. She has been drinking water. She is currently afebrile and has been afebrile so far throughout this admission. Will order CBC, IV fluid bolus at this time and continue to monitor patient.
[2020-11-24 16:49] LABS: Hematocrit 32.9 % (30.3-42.9); Hemoglobin 11.3 gm/dl (10.1-14.3); Mean Corpuscular HGB Conc 34 % (30-34); Mean Corpuscular Volume 83 fl (79-97); Platelet Count 328 K/mm3 (140-440); Red Blood Count 3.95 M/mm3 (3.65-5.03); Red Cell Distribution Width 15.7 % (13.2-15.2)
[2020-11-24] MEDS ORDERED: LACTATED RINGERS 500 ML IV ONE (17:21)
[2020-11-25] MEDS: PRENATAL VIT27-FE FUMARATE-FOLIC ACID VIT TAB PO SCH (09:24)
[2020-11-25] MEDS: DOCUSATE SODIUM 100 MG CAP PO SCH (09:24)
--- NOTE | 2020-11-25 12:23 | Progress Note ---
Assessment and Plan pt resting, no complaints of labor; denies cramping, SROM or vag bleeding. Pt reports active FM. A: IUP at 24 1/7 weeks gestation - s/p BMZ - EFW 1lb 6 oz 11/14/2020 Cervical shortening /incompetence History of PTD at 25 weeks Prior CSx2 ( LTCS x 1, Classical x1 ) Maternal obesity anti c antibody titer AMFM Recommendations: * Continue to monitor for labor, ROM * Serial growth scans * testing at 28 weeks gestation - Patient Problems (1) Body mass index (BMI) greater than 40 Current Visit: Yes Status: Chronic (2) 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 Current Visit: Yes Status: Chronic Qualifiers: Previous scar type: vertical uterine incision (3) Short cervix during in second trimester Current Visit: No Status: Acute (4) Abnormal antibody titer Current Visit: Yes Status: Acute (5) 24 weeks gestation of Current Visit: Yes Status: Acute Subjective - Subjective Date of service: 11/25/20 Principal diagnosis: IUP@ [id number] (EDC 03/16/2021) incompetent cervix Patient reports: movement normal, no new complaints, no loss of fluid, no vaginal bleeding, no contractions Objective - Vital Signs Vital Signs: Vital Signs - 12hr 11/25/20 11/25/20 11/25/20 02:14 04:20 08:40 Temperature 98.0 F 98.1 F Pulse Rate 117 H 117 H 113 H Respiratory 18 18 Rate Blood Pressure 109/67 104/56 Blood Pressure 109/67 [Left] Blood Pressure 104/56 [Right] O2 Sat by Pulse 98 100 Oximetry 11/25/20 11/25/20 11/25/20 09:24 09:29 09:34 Temperature Pulse Rate 114 H 118 H 119 H Respiratory Rate Blood Pressure Blood Pressure [Left] Blood Pressure [Right] O2 Sat by Pulse 98 98 97 Oximetry 11/25/20 11/25/20 11/25/20 09:39 09:44 09:49 Temperature Pulse Rate 112 H 107 H 116 H Respiratory Rate Blood Pressure Blood Pressure [Left] Blood Pressure [Right] O2 Sat by Pulse 97 97 99 Oximetry 11/25/20 11/25/20 11/25/20 09:54 09:59 10:04 Temperature Pulse Rate 114 H 116 H 116 H Respiratory Rate Blood Pressure Blood Pressure [Left] Blood Pressure [Right] O2 Sat by Pulse 99 100 98 Oximetry 11/25/20 11/25/20 11/25/20 10:09 10:14 10:19 Temperature Pulse Rate 111 H 113 H 118 H Respiratory Rate Blood Pressure Blood Pressure [Left] Blood Pressure [Right] O2 Sat by Pulse 98 98 99 Oximetry 11/25/20 11/25/20 11/25/20 10:24 10:29 10:34 Temperature Pulse Rate 109 H 115 H 118 H Respiratory Rate Blood Pressure Blood Pressure [Left] Blood Pressure [Right] O2 Sat by Pulse 96 99 99 Oximetry 11/25/20 11/25/20 11/25/20 10:39 10:44 10:49 Temperature 98.3 F Pulse Rate 119 H 121 H 108 H Respiratory 16 Rate Blood Pressure 113/70 Blood Pressure 113/70 [Left] Blood Pressure [Right] O2 Sat by Pulse 99 99 98 Oximetry 11/25/20 11/25/20 10:50 10:54 Temperature Pulse Rate 98 H 126 H Respiratory Rate Blood Pressure Blood Pressure [Left] Blood Pressure [Right] O2 Sat by Pulse 92 87 Oximetry - Exam Breasts: normal Cardiovascular: Regular rate Lungs: Normal air movement Abdomen: Present: normal appearance, soft Vulva: both: normal Uterus: Present: normal FHR: auscultation normal Uterine Contraction Monitor Mode: Palpation Uterine Tone Measurement Phase: Resting Extremities: normal Deep Tendon Reflex Grade: Normal +2 - Labs Labs: Abnormal Labs 11/14/20 11/15/20 11/15/20 19:22 00:04 05:50 WBC 13.0 H MCHC 35 H RDW 15.5 H Seg Neutrophils % 74.2 H Seg Neutrophils # 9.6 H Magnesium 4.00 H 4.50 H Crossmatch 11/15/20 11/15/20 11/16/20 14:06 18:11 00:15 WBC MCHC RDW Seg Neutrophils % Seg Neutrophils # Magnesium 4.80 H 4.50 H 4.00 H Crossmatch 11/17/20 11/17/20 11/24/20 21:50 21:50 16:40 WBC 14.0 H 15.4 H MCHC 35 H RDW 15.8 H 15.7 H Seg Neutrophils % Seg Neutrophils # Magnesium Crossmatch See Detail Laboratory Results - last 24 hr 11/24/20 16:40 WBC 15.4 H RBC 3.95 Hgb 11.3 Hct 32.9 MCV 83 MCH 29 MCHC 34 RDW 15.7 H Plt Count 328
[2020-11-25] MEDS ORDERED: LACTATED RINGERS 1,000 ML IV ONE (23:08)
--- NOTE | 2020-11-26 08:01 | Progress Note ---
Assessment and Plan pt resting, no complaints of labor; denies cramping, SROM or vag bleeding. Pt reports active FM. NST in progress A: IUP at 24 2/7 weeks gestation - s/p BMZ - EFW 1lb 6 oz 11/14/2020 Cervical shortening /incompetence History of PTD at 25 weeks Prior CSx2 ( LTCS x 1, Classical x1 ) Maternal obesity anti c antibody titer AMFM Recommendations: * Continue to monitor for labor, ROM * Serial growth scans * testing at 28 weeks gestation - Patient Problems (1) Body mass index (BMI) greater than 40 Current Visit: Yes Status: Chronic (2) 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 Current Visit: Yes Status: Chronic Qualifiers: Previous scar type: vertical uterine incision (3) Short cervix during in second trimester Current Visit: No Status: Acute (4) Abnormal antibody titer Current Visit: Yes Status: Acute (5) 24 weeks gestation of Current Visit: Yes Status: Acute Subjective - Subjective Date of service: 11/26/20 Principal diagnosis: IUP@ [id number] (EDC 03/16/2021) incompetent cervix Patient reports: movement normal, no new complaints, no loss of fluid, no vaginal bleeding, no contractions Objective - Vital Signs Vital Signs: Vital Signs - 12hr 11/25/20 11/25/20 11/25/20 19:58 22:58 22:59 Temperature Pulse Rate 127 H Respiratory Rate Blood Pressure 136/80 Blood Pressure [Left] O2 Sat by Pulse 85 98 Oximetry 11/25/20 11/25/20 11/25/20 23:00 23:06 23:11 Temperature 98.3 F Pulse Rate 123 H 128 H Respiratory Rate Blood Pressure Blood Pressure [Left] O2 Sat by Pulse 99 99 Oximetry 11/25/20 11/25/20 11/25/20 23:16 23:19 23:21 Temperature Pulse Rate 124 H 110 H 124 H Respiratory Rate Blood Pressure Blood Pressure [Left] O2 Sat by Pulse 99 90 98 Oximetry 11/25/20 11/25/20 11/25/20 23:26 23:31 23:36 Temperature Pulse Rate 120 H 125 H 123 H Respiratory Rate Blood Pressure Blood Pressure [Left] O2 Sat by Pulse 98 99 99 Oximetry 11/25/20 11/25/20 11/25/20 23:41 23:46 23:51 Temperature Pulse Rate 114 H 121 H 120 H Respiratory Rate Blood Pressure Blood Pressure [Left] O2 Sat by Pulse 99 99 100 Oximetry 11/25/20 11/26/20 11/26/20 23:56 00:01 00:06 Temperature Pulse Rate 121 H 118 H 122 H Respiratory Rate Blood Pressure Blood Pressure [Left] O2 Sat by Pulse 99 99 99 Oximetry 11/26/20 11/26/20 11/26/20 00:11 00:16 00:21 Temperature Pulse Rate 123 H 120 H 121 H Respiratory Rate Blood Pressure Blood Pressure [Left] O2 Sat by Pulse 98 98 100 Oximetry 11/26/20 11/26/20 11/26/20 00:26 00:31 00:36 Temperature Pulse Rate 122 H 114 H 118 H Respiratory Rate Blood Pressure Blood Pressure [Left] O2 Sat by Pulse 98 98 98 Oximetry 11/26/20 11/26/20 11/26/20 00:41 00:46 00:47 Temperature Pulse Rate 120 H 62 Respiratory Rate Blood Pressure Blood Pressure [Left] O2 Sat by Pulse 98 86 89 Oximetry 11/26/20 11/26/20 11/26/20 00:52 00:57 01:02 Temperature Pulse Rate 119 H 120 H 117 H Respiratory Rate Blood Pressure Blood Pressure [Left] O2 Sat by Pulse 98 99 98 Oximetry 11/26/20 11/26/20 11/26/20 01:07 01:12 01:17 Temperature Pulse Rate 118 H 125 H 112 H Respiratory Rate Blood Pressure Blood Pressure [Left] O2 Sat by Pulse 99 99 98 Oximetry 11/26/20 11/26/20 11/26/20 01:22 01:27 01:32 Temperature Pulse Rate 111 H 115 H 111 H Respiratory Rate Blood Pressure Blood Pressure [Left] O2 Sat by Pulse 96 98 96 Oximetry 11/26/20 11/26/20 11/26/20 01:37 01:42 01:47 Temperature Pulse Rate 110 H 111 H 113 H Respiratory Rate Blood Pressure Blood Pressure [Left] O2 Sat by Pulse 97 97 96 Oximetry 11/26/20 11/26/20 11/26/20 01:52 01:57 02:02 Temperature Pulse Rate 112 H 118 H 109 H Respiratory Rate Blood Pressure Blood Pressure [Left] O2 Sat by Pulse 97 96 97 Oximetry 11/26/20 11/26/20 11/26/20 02:07 02:12 02:17 Temperature Pulse Rate 109 H 115 H 114 H Respiratory Rate Blood Pressure Blood Pressure [Left] O2 Sat by Pulse 97 99 98 Oximetry 11/26/20 11/26/20 11/26/20 03:59 05:08 05:10 Temperature 98.6 F Pulse Rate 108 H Respiratory Rate Blood Pressure 127/65 Blood Pressure [Left] O2 Sat by Pulse 94 Oximetry 11/26/20 11/26/20 11/26/20 07:28 07:38 07:39 Temperature 98.8 F Pulse Rate 106 H 116 H 111 H Respiratory 16 Rate Blood Pressure 115/66 Blood Pressure 115/66 [Left] O2 Sat by Pulse 86 98 97 Oximetry 11/26/20 11/26/20 11/26/20 07:43 07:48 07:53 Temperature Pulse Rate 109 H 114 H 109 H Respiratory Rate Blood Pressure Blood Pressure [Left] O2 Sat by Pulse 97 99 98 Oximetry - Exam Breasts: normal Cardiovascular: Regular rate Lungs: Clear to auscultation, Normal air movement Abdomen: Present: normal appearance, soft Vulva: both: normal Uterus: Present: normal FHR: auscultation normal Uterine Contraction Monitor Mode: External Uterine Contraction Pattern: Absent Uterine Tone Measurement Phase: Resting Extremities: normal Deep Tendon Reflex Grade: Normal +2 - Labs Labs: Abnormal Labs 11/14/20 11/15/20 11/15/20 19:22 00:04 05:50 WBC 13.0 H MCHC 35 H RDW 15.5 H Seg Neutrophils % 74.2 H Seg Neutrophils # 9.6 H Magnesium 4.00 H 4.50 H Crossmatch 11/15/20 11/15/20 11/16/20 14:06 18:11 00:15 WBC MCHC RDW Seg Neutrophils % Seg Neutrophils # Magnesium 4.80 H 4.50 H 4.00 H Crossmatch 11/17/20 11/17/20 11/24/20 21:50 21:50 16:40 WBC 14.0 H 15.4 H MCHC 35 H RDW 15.8 H 15.7 H Seg Neutrophils % Seg Neutrophils # Magnesium Crossmatch See Detail
[2020-11-26] MEDS: PRENATAL VIT27-FE FUMARATE-FOLIC ACID VIT TAB PO SCH (09:47)
[2020-11-26] MEDS: DOCUSATE SODIUM 100 MG CAP PO SCH (09:47)
--- NOTE | 2020-11-26 11:20 | Progress Note ---
Assessment and Plan 1. IUP at 24 2/7 weeks' 2. Cervical shortening; suspected cervical incompetence 3. History of labor and delivery 4. Previous C/S x 2; classical incision x 1 5. Little-c isoimmunization 1. Continue expectant management 2. Weekly 17P injections 3. Repeat anti-c antibody titer; frequency of repeat titers dependent on current titer; weekly MCA dopplers if titer > 1:16 4. Serial cervical length starting at 13-15 weeks', weekly 17P, cerclage if indicated, during subsequent pregnancies Subjective - Subjective Date of service: 11/26/20 Principal diagnosis: IUP@ [id number] (EDC 03/16/2021) incompetent cervix Interval history: Feeling well, fetus active; denied contractions Patient reports: movement normal, no new complaints, no loss of fluid, no vaginal bleeding, no contractions Objective - Vital Signs Vital Signs: Vital Signs - 12hr 11/25/20 11/25/20 11/25/20 23:16 23:19 23:21 Temperature Pulse Rate 124 H 110 H 124 H Respiratory Rate Blood Pressure Blood Pressure [Left] O2 Sat by Pulse 99 90 98 Oximetry 11/25/20 11/25/20 11/25/20 23:26 23:31 23:36 Temperature Pulse Rate 120 H 125 H 123 H Respiratory Rate Blood Pressure Blood Pressure [Left] O2 Sat by Pulse 98 99 99 Oximetry 11/25/20 11/25/20 11/25/20 23:41 23:46 23:51 Temperature Pulse Rate 114 H 121 H 120 H Respiratory Rate Blood Pressure Blood Pressure [Left] O2 Sat by Pulse 99 99 100 Oximetry 11/25/20 11/26/20 11/26/20 23:56 00:01 00:06 Temperature Pulse Rate 121 H 118 H 122 H Respiratory Rate Blood Pressure Blood Pressure [Left] O2 Sat by Pulse 99 99 99 Oximetry 11/26/20 11/26/20 11/26/20 00:11 00:16 00:21 Temperature Pulse Rate 123 H 120 H 121 H Respiratory Rate Blood Pressure Blood Pressure [Left] O2 Sat by Pulse 98 98 100 Oximetry 11/26/20 11/26/20 11/26/20 00:26 00:31 00:36 Temperature Pulse Rate 122 H 114 H 118 H Respiratory Rate Blood Pressure Blood Pressure [Left] O2 Sat by Pulse 98 98 98 Oximetry 11/26/20 11/26/20 11/26/20 00:41 00:46 00:47 Temperature Pulse Rate 120 H 62 Respiratory Rate Blood Pressure Blood Pressure [Left] O2 Sat by Pulse 98 86 89 Oximetry 11/26/20 11/26/20 11/26/20 00:52 00:57 01:02 Temperature Pulse Rate 119 H 120 H 117 H Respiratory Rate Blood Pressure Blood Pressure [Left] O2 Sat by Pulse 98 99 98 Oximetry 11/26/20 11/26/20 11/26/20 01:07 01:12 01:17 Temperature Pulse Rate 118 H 125 H 112 H Respiratory Rate Blood Pressure Blood Pressure [Left] O2 Sat by Pulse 99 99 98 Oximetry 11/26/20 11/26/20 11/26/20 01:22 01:27 01:32 Temperature Pulse Rate 111 H 115 H 111 H Respiratory Rate Blood Pressure Blood Pressure [Left] O2 Sat by Pulse 96 98 96 Oximetry 11/26/20 11/26/20 11/26/20 01:37 01:42 01:47 Temperature Pulse Rate 110 H 111 H 113 H Respiratory Rate Blood Pressure Blood Pressure [Left] O2 Sat by Pulse 97 97 96 Oximetry 11/26/20 11/26/20 11/26/20 01:52 01:57 02:02 Temperature Pulse Rate 112 H 118 H 109 H Respiratory Rate Blood Pressure Blood Pressure [Left] O2 Sat by Pulse 97 96 97 Oximetry 11/26/20 11/26/20 11/26/20 02:07 02:12 02:17 Temperature Pulse Rate 109 H 115 H 114 H Respiratory Rate Blood Pressure Blood Pressure [Left] O2 Sat by Pulse 97 99 98 Oximetry 11/26/20 11/26/20 11/26/20 03:59 05:08 05:10 Temperature 98.6 F Pulse Rate 108 H Respiratory Rate Blood Pressure 127/65 Blood Pressure [Left] O2 Sat by Pulse 94 Oximetry 11/26/20 11/26/20 11/26/20 07:28 07:38 07:39 Temperature 98.8 F Pulse Rate 106 H 116 H 111 H Respiratory 16 Rate Blood Pressure 115/66 Blood Pressure 115/66 [Left] O2 Sat by Pulse 86 98 97 Oximetry 11/26/20 11/26/20 11/26/20 07:43 07:48 07:53 Temperature Pulse Rate 109 H 114 H 109 H Respiratory Rate Blood Pressure Blood Pressure [Left] O2 Sat by Pulse 97 99 98 Oximetry 11/26/20 07:58 Temperature Pulse Rate 108 H Respiratory Rate Blood Pressure Blood Pressure [Left] O2 Sat by Pulse 98 Oximetry - Exam Narrative Exam: Abd soft, nontender; FHT's reassuring for EGA earlier today; anti-c antibody 1:1 on 10/27/20 - Labs Labs: Abnormal Labs 11/14/20 11/15/20 11/15/20 19:22 00:04 05:50 WBC 13.0 H MCHC 35 H RDW 15.5 H Seg Neutrophils % 74.2 H Seg Neutrophils # 9.6 H Magnesium 4.00 H 4.50 H Crossmatch 11/15/20 11/15/20 11/16/20 14:06 18:11 00:15 WBC MCHC RDW Seg Neutrophils % Seg Neutrophils # Magnesium 4.80 H 4.50 H 4.00 H Crossmatch 11/17/20 11/17/20 11/24/20 21:50 21:50 16:40 WBC 14.0 H 15.4 H MCHC 35 H RDW 15.8 H 15.7 H Seg Neutrophils % Seg Neutrophils # Magnesium Crossmatch See Detail
--- NOTE | 2020-11-26 11:28 | Event Note ---
Date: 11/26/20 lab ordered for antibody titer, ordered by [facility] in blood bank and it is a send out order. Order also placed to case management to get approval for [id number] per Dr. Alexander's recommendation.
[2020-11-26] MEDS: ACETAMINOPHEN 500 MG TAB PO PRN (23:17)
--- NOTE | 2020-11-27 06:36 | Progress Note ---
Assessment and Plan Pt in good spirits States she is having lower abdominal cramping that woke her up. Encouraged to empty bladder and then NST can be done to monitor for ctx. Pt agrees with this plan. Went back to see pt stating she does feel less cramping NST reactive No ctx recorded. TOCO placement appropriate. Will continue POC as noted Dr Reyna made aware - Patient Problems (1) 24 weeks gestation of Onset Date: ~11/27/20 Current Visit: Yes Status: Acute Plan to address problem: Plan as noted by Dr Aelxander from [facility] 11/26/20: Assessment and Plan 1. IUP at 24 2/7 weeks' 2. Cervical shortening; suspected cervical incompetence 3. History of labor and delivery 4. Previous C/S x 2; classical incision x 1 5. Little-c isoimmunization 1. Continue expectant management 2. Weekly 17P injections: Pt and staff aware to contact CM to get this arranged. 3. Repeat anti-c antibody titer; frequency of repeat titers dependent on current titer; weekly MCA dopplers if titer > 1:16: Drawn 11/26/20 This is a send out will watch for results (2) GBS (group B Streptococcus carrier), +RV culture, currently Onset Date: ~11/27/20 Current Visit: Yes Status: Acute Plan to address problem: will treat in labor Subjective - Subjective Date of service: 11/27/20 (pt c/o cramping) Principal diagnosis: IUP@ [id number] (EDC 03/16/2021) incompetent cervix; GBS+ Patient reports: movement normal, no new complaints, no loss of fluid, no vaginal bleeding, no contractions Objective - Vital Signs Vital Signs: Vital Signs - 12hr 11/26/20 11/26/20 11/26/20 22:00 23:17 23:20 Temperature 98.3 F Pulse Rate 125 H Respiratory 18 20 Rate Blood Pressure 123/70 O2 Sat by Pulse Oximetry 11/27/20 11/27/20 11/27/20 06:09 06:20 06:25 Temperature 98.4 F Pulse Rate 123 H 123 H Respiratory 20 Rate Blood Pressure 115/58 O2 Sat by Pulse 96 Oximetry 11/27/20 06:30 Temperature Pulse Rate 125 H Respiratory Rate Blood Pressure O2 Sat by Pulse 96 Oximetry - Labs Labs: Abnormal Labs 11/14/20 11/15/20 11/15/20 19:22 00:04 05:50 WBC 13.0 H MCHC 35 H RDW 15.5 H Seg Neutrophils % 74.2 H Seg Neutrophils # 9.6 H Magnesium 4.00 H 4.50 H Crossmatch 11/15/20 11/15/20 11/16/20 14:06 18:11 00:15 WBC MCHC RDW Seg Neutrophils % Seg Neutrophils # Magnesium 4.80 H 4.50 H 4.00 H Crossmatch 11/17/20 11/17/20 11/24/20 21:50 21:50 16:40 WBC 14.0 H 15.4 H MCHC 35 H RDW 15.8 H 15.7 H Seg Neutrophils % Seg Neutrophils # Magnesium Crossmatch See Detail
[2020-11-27] MEDS: ACETAMINOPHEN 500 MG TAB PO PRN (09:00)
--- NOTE | 2020-11-27 10:12 | Event Note ---
Date: 11/27/20 (Called by staff assistant Pt bleeding and cramping) Arrived to room Pt lying in bed. Pt reports only spotting noted on tissue when she wiped. Reports cramping is very low. TOCO placed by RN. SVE 2-3,60,-4 unable to tell presenting part. IVFs restarted @ 125cc/hr. Will send UA for poss UTI. Encouraged pt to not be OOB until lunch, use bedpan. Dr Reyna notified of all findings and plan. Agrees.
[2020-11-27] MEDS: DOCUSATE SODIUM 100 MG CAP PO SCH (11:08)
[2020-11-27] MEDS: PRENATAL VIT27-FE FUMARATE-FOLIC ACID VIT TAB PO SCH (11:08)
[2020-11-27 12:13] LABS: Bacteria,Urine 2+ /HPF (Negative); Bilirubin,Urine NEG (Negative); Blood,Urine LG (Negative); Color,Urine Yellow (Yellow); Urobilinogen,Urine < 2.0 mg/dL (<2.0)
[2020-11-27 12:15] LABS: WBC,Urine > 182.0 /HPF (0.0-6.0)
--- NOTE | 2020-11-27 12:30 | Event Note ---
Date: 11/27/20 (poss UTI Specimen sent for C&S) Consulted with Dr Axel Kidd to tx poss UTI Awaiting C&S result
[2020-11-27] MEDS: AMPICILLIN/NS 2 GM/100 ML 2 GM/100 ML BAG IV SCH ×2 (12:58→18:23)
--- NOTE | 2020-11-27 13:17 | Ultrasound Report ---
ULTRASOUND OBSTETRIC INDICATION / CLINICAL INFORMATION: CK POSITION AND WELL BEING. Clinical Gestational Age (GA) in weeks, days: 24, 3 TECHNIQUE: Transabdominal. COMPARISON: None available. FINDINGS: Single intrauterine . Biparietal Diameter = 5.8 cm = 23, 4 weeks, days Head Circumference = 21.3 cm = 23, 3 weeks, days Abdominal Circumference = 22.3 cm = 26, 5 weeks, days Femur Length = 4.9 cm = 26, 4 weeks, days Average Ultrasound Age (AUA) = 25, 1 weeks, days Heart Rate: 151 beats per minute. Estimated Weight in grams (if calculated): 899 g Estimated Weight Growth Percentile (if calculated): 98% Position: cephalic. Cervix: closed. Length in cm (if measured): Not measured Placenta: anterior and free of the os. Amniotic Fluid Volume: normal Amniotic Fluid Index (CK) in cm (if calculated): 11.3. Maternal Adnexa: Not well visualized. IMPRESSION: 1. Single, living intrauterine with estimated sonographic age of 25, 1 weeks, days. 2. No significant sonographic abnormality. Signer Name: Jennifer Naranjo MD Signed: 11/27/2020 1:13 PM Workstation Name: [id number]
[2020-11-27] MEDS ORDERED: TERBUTALINE 1 MG/1 ML INJ SUB-Q ONE (13:33)
--- NOTE | 2020-11-27 13:42 | Event Note ---
Date: 11/27/20 Called to see the patient secondary to complaining of pain. Patient complains of lower abdominal pressure that comes and goes. Patient states she did not feel like there contractions. Her vital signs are stable. Perris does not sheepskin pickler any contractions heart tones are reactive. Palpation of her abdomen do not complaint no contractions palpated patient does have a BMI of 43. Cervix recheck no change in her cervical exam. No vaginal bleeding. Ultrasound obtained this morning shows fetus in vertex position CK of 11.3 no evidence of abruption noted in this preliminary report. Patient with pain with no clear evidence of labor. Discussed with patient and her significant other that she is at risk due to the previous sections especially history of classical C- section abruption possible uterine scar separation. Will monitor closely. Will make patient n.p.o. We will give a trial of breast-feeding and possibly magnesi um sulfate. The patient presents to with the pain and discomfort shows evidence of possible abruption we will move to operative delivery.
--- NOTE | 2020-11-27 14:20 | Event Note ---
Date: 11/27/20 Patient states feels the pain is better and less often since her dose of terbutaline. Will start magnesium sulfate. Again did discuss with patient significant others continue to have pain we will move toward delivery.
[2020-11-27] MEDS ORDERED: MAGNESIUM SULFATE 4 GM/100 ML BAG IV ONE (14:30)
[2020-11-27] MEDS ORDERED: MAGNESIUM SULFATE 40GM/1000ML 40 GM/1,000 ML BAG IV SCH (15:00)
[2020-11-27] MEDS ORDERED: LACTATED RINGERS 1000 ML IV SOLN IV SCH (17:00)
[2020-11-27] MEDS ORDERED: diphenhydrAMINE 50 MG/ML VIAL IV ONE (17:44)
--- NOTE | 2020-11-27 17:47 | Event Note ---
Date: 11/27/20 Patient now complaining of less frequent contractions and states that the pain is much improved.
--- NOTE | 2020-11-27 21:39 | Event Note ---
Date: 11/27/20 (Large amount of fluid noted at perineum) Received call from RN that patient had increase in pain. Per patient her contractions are "coming back to back." She also states that she thinks her water broke around 2123. States she felt a gush of fluid at that time but was not sure if her water broke. Upon examination a large amount of pink fluid noted at perineum and on exam glove. Cervical exam 2.5//-4. Dr. Reyna updated on patient status. orders placed, consents signed.
[2020-11-27] MEDS ORDERED: BICITRA ORAL LIQD 30ML PO ONE (21:41)
[2020-11-27] MEDS ORDERED: FAMOTIDINE 20 MG/2 ML INJ IV ONE (21:41)
[2020-11-27] MEDS ORDERED: METOCLOPRAMIDE 10 MG/2 ML INJ IV ONE (21:41)
[2020-11-27] MEDS ORDERED: PORACTANT ALFA 80 MG/ML (1.5 ML) VIAL ONE ×2 (21:51→21:53)
[2020-11-27] MEDS ORDERED: WATER FOR INJ Sterile (PF) 10 ML ONE (21:51)
[2020-11-27] MEDS ORDERED: SODIUM CHLORIDE P/F VIAL 10 ML 10 ML ONE (21:52)
[2020-11-27] MEDS ORDERED: GLYCERIN PEDIATRIC 1 GM RECT SUPP RC ONE (21:54)
--- NOTE | 2020-11-27 21:58 | Anesthesia Consultation ---
Anesthesia Consult and Med Hx Date of service: 11/27/20 - Airway Anesthetic Teeth Evaluation: Good ROM Head & Neck: Adequate Mental/Hyoid Distance: Adequate Mallampati Class: Class II Intubation Access Assessment: Probably Good - Pulmonary Exam CTA: Yes - Cardiac Exam Cardiac Exam: RRR - Pre-Operative Health Status ASA Pre-Surgery Classification: ASA3, Emergency Proposed Anesthetic Plan: Spinal - Pulmonary Hx Asthma: No COPD: No Hx Pneumonia: No - Cardiovascular System Hx Hypertension: No - Central Nervous System Hx Seizures: No Hx Psychiatric Problems: No - Endocrine Hx Renal Disease: No Hx End Stage Renal Disease: No Hx Hypothyroidism: No Hx Hyperthyroidism: No - Hematic Hx Anemia: No Hx Sickle Cell Disease: No - Other Systems Hx Alcohol Use: No Hx Obesity: Yes (BMI 40)
[2020-11-27] MEDS ORDERED: ceFAZolin/Water 2 GM/20 ML 2 GM/20 ML SYRINGE IV NR (22:00)
[2020-11-27] MEDS ORDERED: OXYTOCIN DRIP 30 UNITS/500 ML BAG IV SCH (22:00)
--- NOTE | 2020-11-27 22:02 | Anesthesia Day of Surgery ---
Anesthesia Day of Surgery - Day of Surgery Patient Examined: Yes Patient H&P Reviewed: Yes Patient is NPO: Yes
--- NOTE | 2020-11-27 22:32 | Event Note ---
Date: 11/27/20 Patient returns with pain still is worse than before. Discussed earlier with patient due to the risk of possible uterine rupture abruption and recurrent of severe pain we will move forward with delivery. Discussed with the patient the risks of this severe premature infant. Risks include complications from lung immaturity possible brain hemorrhage. Patient previously counseled by the intensive care unit. Patient informed the risks of the surgery include bleeding possibly bleeding heavy enough to require blood transfusion, infection possible damage to bowel bladder ureter. All questions answered. Patient agrees to proceed. Patient states that she desires permanent sterilization with tubal ligation at time of surgery. Discussed with the patient the possibility of complications and possible . Patient understands desires to proceed even with the risks of the possibility this infant may not live. Patient desires permanent sterilization. She declined temporary contraceptives. She understands the risks of the surgery include bleeding infection possible damage to bowel bladder or ureters. She understands that this surgery would make her permanently sterile. She also understands the approximate 1% failure rate. The patient understands all the above and desires to proceed.
[2020-11-27 22:41] LABS: Hematocrit 33.1 % (30.3-42.9); Hemoglobin 11.5 gm/dl (10.1-14.3); Mean Corpuscular HGB Conc 35 % (30-34); Mean Corpuscular Volume 83 fl (79-97); Platelet Count 368 K/mm3 (140-440); Red Blood Count 3.98 M/mm3 (3.65-5.03); Red Cell Distribution Width 15.5 % (13.2-15.2)
[2020-11-27] MEDS ORDERED: SODIUM CHLORIDE 0.9% IRR 1,500 ML BOTTLE IR ONE (23:06)
[2020-11-27] MEDS ORDERED: WATER FOR IRRIG STERILE 1,500 ML BOTTLE IR ONE (23:06)
[2020-11-27] MEDS ORDERED: dexAMETHasone 20 MG/5 ML VIAL ONE (23:07)
[2020-11-27] MEDS ORDERED: KETOROLAC 30 MG/1 ML INJ ONE (23:07)
[2020-11-27] MEDS ORDERED: BUPIVACAINE/PF (0.5%) 5 MG/1 ML 30 ML VIAL INFILTRATI ONE (23:07)
[2020-11-27] MEDS ORDERED: PHENYLEPHRINE/NS 1,000 MCG/10 ML SYRINGE (OR USE) IV ONE ×2 (23:07→23:34)
[2020-11-27 23:12] LABS: Monocytes % (Manual) 1.5 % (0.0-7.3); Total Cells Counted 200
[2020-11-27 23:13] LABS: Platelet Estimate Consistent w Auto; RBC Morphology Normal; Toxic Granulation 2+
--- NOTE | 2020-11-28 01:04 | Operative Report ---
Operative Report Operative Report: Date of procedure: November 27, 2020 Pre-operative diagnosis: Intrauterine at 24 weeks and 3 days with short cervix, premature labor and previous x2 with one being a classical . Patient desires permanent sterilization. BMI of 43.5 Post-operative diagnosis: Same Procedure name(s): Repeat classical section with bilateral tubal ligation modified Bernard type Surgeon: Alex Reyna MD Senior Care Provider: Crystal Jon, certified nurse control room agent Anesthesia: Spinal EBL: Complications: None Findings: Uterus with adhesions to the bladder. Uterus had an undeveloped lower uterine segment. Normal fallopian tubes bilaterally. Female . Weight 1 pound 6 ounces. Apgars not available at time of dictation Specimen(s): Placenta and portion of the right and left fallopian tubes. Procedure: The patient was brought to the operating room. A spinal was placed without any complications. She was then placed in left lateral tilt. Prepped and draped in the usual sterile manner. After testing for adequate anesthesia level, a Pfannenstiel incision was made through her previous scar. This incision was taken down to the fascia. The fascia was then nicked in the midline. This incision was extended out laterally with Walters scissors. The fascia was then sharply and bluntly from the underlying rectus muscles. The rectus muscles were bluntly and sharply . The peritoneum was then entered with the reactor kettle operator's fingers. This incision was spread vertically with care not to damage the bladder below. The bladder flap was then formed sharply and bluntly with Metzenbaum scissors. The Ponce self-retaining tractor was then placed without any difficulty. Due to the undeveloped lower uterine segment, a classical uterine incision midline anteriorly extending to the lower uterine segment. This incision was extended vertically with the operators fingers. The amniotic sac was then entered bluntly with the reactor kettle operator's fingers. The was delivered from the vertex position. Bulb suction on the mother's abdomen. The cord clamping was delayed 1 minute per NICU personnel instruction. The infant was attempting to cry and moving all extremities. Cord was double clamped and cut. The was then passed to the nursery personnel who were in attendance. The scores will be assigned by the nursery personnel. The placenta was then bluntly removed. The uterus was then externalized and wiped clean the remaining products. The uterine incision was closed in layers. The first incision was closed in a locking manner using 0 Vicryl. This was followed by imbricating stitch also with 0 Vicryl. This closure was hemostatic. Attention was then switched to the patient's fallopian tubes. Each fallopian tube was identified by its fimbriated end. A portion of each tube was grabbed with the Tani clamp approximately 2- 3 cm from the cornua. Each loop was double ligated with 0 plain suture. The loop were cut with Metzenbaum scissors. Each stump was found to be hemostatic and cauterized with the Bovie. Attention was then switched back to the uterine closure. This closure was hemostatic The bladder flap was copiously irrigated and found to be hemostatic. The pelvis was copiously irrigated and found to be hemostatic. The uterus was then placed back to the patient's abdomen. Interceed was placed along the uterine closure. The retractors were removed. The rectus muscles were inspected and found to be hemostatic. The fascia was then closed in a running manner using 0 Vicryl. This incision was hemostatic after irrigation and Bovie. The skin was reapproximated with 4-0 Vicryl subcuticularly. The patient tolerated procedure well. Her urine was clear. The was admitted to the well baby nursery. The patient was accompanied to recovery room in good condition. Instrument count correct x3.
[2020-11-28] MEDS ORDERED: WITCH HAZEL/ GLYCERIN PAD TP PRN (01:23)
[2020-11-28] MEDS ORDERED: HYDROcodone/ACETAMINOPHEN 5-325 MG TAB PO PRN (01:23)
[2020-11-28] MEDS ORDERED: ONDANSETRON 4 MG/2 ML INJ IV PRN (01:23)
[2020-11-28] MEDS ORDERED: OXYTOCIN DRIP 30 UNITS/500 ML BAG IV SCH (01:23)
[2020-11-28] MEDS ORDERED: NALOXONE 0.4 MG/1 ML INJ IV PRN (01:23)
[2020-11-28] MEDS ORDERED: MAGNESIUM HYDROXIDE (MOM) ORAL LIQD UDC PO PRN (01:23)
[2020-11-28] MEDS ORDERED: LANOLIN/ZINC/DIMETHICONE (LANSINOH) 7 GM TP PRN (01:23)
[2020-11-28] MEDS ORDERED: D5W/LACTATED RINGERS 1,000 ML IV SCH (01:23)
[2020-11-28] MEDS: KETOROLAC 30 MG/1 ML INJ IV SCH ×4 (02:40→20:01)
[2020-11-28] MEDS: ceFAZolin/NS 1 GM/50 ML 1 GM/50 ML BAG IV SCH ×2 (06:47→14:22)
--- NOTE | 2020-11-28 08:11 | Progress Note ---
Assessment and Plan patient doing well, reports feeling sore but overall pain is being managed to patient's expectations. incision D&I, lochia scant, fundus firm. encouraged pumping breast milk for baby in NICU. Hydration and ISS encouraged. - Patient Problems (1) Body mass index (BMI) greater than 40 Current Visit: Yes Status: Chronic (2) Abnormal antibody titer Current Visit: Yes Status: Acute (3) delivery delivered Onset Date: ~08/09/18 Current Visit: No Status: Acute Plan to address problem: advance diet and activity as tolerated continue postop pathway Subjective - Subjective Date of service: 11/28/20 Principal diagnosis: postop day #1 <12hrs s/p repeat c/s Patient reports: appetite normal, pain well controlled, flatus, no nauseated : in NICU Objective - Vital Signs Latest vital signs: Vital Signs Temp Pulse Resp BP BP Pulse Ox 11/28/20 05:23 98.0 F 116 H 22 110/58 97 11/28/20 05:19 22 11/28/20 02:40 24 11/28/20 02:15 98.5 F 126 H 24 103/56 97 11/28/20 01:35 136 H 28 H 118/62 97 11/28/20 01:20 132 H 26 H 124/72 98 11/28/20 01:05 98.5 F 135 H 26 H 113/73 100 11/28/20 00:52 127 H 31 H 101/78 98 11/28/20 00:35 114 H 28 H 117/76 99 11/28/20 00:30 113 H 25 H 111/70 100 11/28/20 00:25 100.1 F H 113 H 26 H 107/64 100 11/27/20 22:34 130 H 99 11/27/20 22:29 136 H 100 11/27/20 22:24 127 H 99 11/27/20 22:19 120 H 98 11/27/20 22:14 131 H 99 11/27/20 22:09 126 H 100 11/27/20 22:04 130 H 99 11/27/20 21:59 131 H 100 11/27/20 21:54 132 H 100 11/27/20 21:52 126 H 157/110 11/27/20 21:49 134 H 100 11/27/20 21:44 136 H 99 11/27/20 21:39 140 H 100 11/27/20 21:34 130 H 100 11/27/20 21:29 138 H 100 11/27/20 21:24 130 H 100 11/27/20 21:21 127 H 127/58 11/27/20 21:19 124 H 100 11/27/20 21:14 129 H 100 11/27/20 21:09 126 H 98 11/27/20 21:04 125 H 99 11/27/20 20:59 130 H 99 11/27/20 20:54 131 H 98 11/27/20 20:51 131 H 122/75 11/27/20 20:49 119 H 98 11/27/20 20:44 132 H 100 11/27/20 20:39 133 H 99 11/27/20 20:34 124 H 99 11/27/20 20:29 131 H 99 11/27/20 20:24 131 H 99 11/27/20 20:21 129 H 110/57 11/27/20 20:19 131 H 99 11/27/20 20:14 125 H 98 11/27/20 20:09 129 H 99 11/27/20 20:04 126 H 99 11/27/20 19:59 125 H 98 11/27/20 19:54 126 H 98 11/27/20 19:51 127 H 95/51 11/27/20 19:49 129 H 98 11/27/20 19:46 133 H 91/50 11/27/20 19:44 128 H 99 11/27/20 19:39 128 H 97/48 98 11/27/20 19:38 98.7 F 129 H 20 100/49 99 11/27/20 19:34 129 H 100 11/27/20 19:29 132 H 100 11/27/20 19:24 133 H 100 11/27/20 19:19 129 H 100 11/27/20 19:14 128 H 96 11/27/20 19:09 132 H 99 11/27/20 19:04 130 H 99 11/27/20 18:59 131 H 100 11/27/20 18:54 130 H 100 11/27/20 18:50 98.7 F 20 11/27/20 18:49 129 H 99 11/27/20 18:44 127 H 100 11/27/20 18:39 129 H 99 11/27/20 18:34 129 H 99 11/27/20 18:29 133 H 99 11/27/20 18:24 130 H 99 11/27/20 18:19 135 H 99 06 18:14 130 H 100 11/27/20 18:09 131 H 99 11/27/20 18:04 134 H 100 11/27/20 17:59 133 H 100 11/27/20 17:54 134 H 99 11/27/20 17:49 137 H 97 11/27/20 17:44 138 H 99 11/27/20 17:39 127 H 98 11/27/20 17:34 134 H 99 11/27/20 17:29 129 H 100 11/27/20 17:24 132 H 99 11/27/20 17:19 134 H 98 11/27/20 17:14 131 H 98 11/27/20 17:09 131 H 98 11/27/20 17:04 132 H 100 11/27/20 17:03 124 H 89 11/27/20 16:59 131 H 98 11/27/20 16:54 133 H 98 11/27/20 16:49 134 H 98 11/27/20 16:44 134 H 99 11/27/20 16:39 130 H 98 11/27/20 16:34 133 H 97 11/27/20 16:29 133 H 97 11/27/20 16:24 131 H 97 11/27/20 16:19 134 H 99 11/27/20 16:18 129 H 94 11/27/20 16:14 133 H 97 11/27/20 16:09 134 H 98 11/27/20 16:04 132 H 97 11/27/20 16:00 98.4 F 18 11/27/20 15:59 134 H 97 11/27/20 15:54 134 H 96 11/27/20 15:49 134 H 100 11/27/20 15:44 141 H 100 11/27/20 15:39 140 H 98 11/27/20 15:34 143 H 98 11/27/20 15:29 129 H 99 11/27/20 15:24 131 H 99 11/27/20 15:19 131 H 98 11/27/20 15:14 134 H 97 11/27/20 15:09 131 H 96 06/07/21 15:07 135 H 94 11/27/20 15:04 133 H 97 11/27/20 14:59 134 H 98 11/27/20 14:54 132 H 99 11/27/20 14:52 131 H 116/68 11/27/20 14:49 136 H 98 11/27/20 14:44 134 H 98 11/27/20 14:39 136 H 98 11/27/20 14:34 139 H 98 11/27/20 14:29 139 H 100 11/27/20 14:26 128 H 86 11/27/20 14:24 142 H 99 11/27/20 14:19 131 H 99 11/27/20 14:14 136 H 98 11/27/20 14:09 131 H 97 11/27/20 14:04 135 H 99 11/27/20 13:59 128 H 98 11/27/20 13:54 123 H 97 11/27/20 13:49 119 H 98 11/27/20 13:44 123 H 99 11/27/20 13:39 115 H 100 11/27/20 13:34 125 H 100 11/27/20 13:29 116 H 100 11/27/20 13:24 125 H 100 11/27/20 13:19 114 H 98 11/27/20 13:14 116 H 96 11/27/20 13:09 114 H 92 11/27/20 13:05 117 H 93 11/27/20 13:04 119 H 98 11/27/20 12:59 119 H 100 11/27/20 12:54 118 H 95 11/27/20 12:49 114 H 100 11/27/20 12:44 112 H 94 11/27/20 12:39 124 H 97 11/27/20 12:34 118 H 97 11/27/20 12:29 124 H 96 11/27/20 12:24 111 H 92 11/27/20 12:19 118 H 96 11/27/20 12:18 118 H 93 11/27/20 12:14 112 H 96 11/27/20 12:10 111 H 89 11/27/20 12:09 114 H 98 11/27/20 12:04 106 H 96 11/27/20 12:03 109 H 94 11/27/20 12:00 98.1 F 20 11/27/20 11:59 121 H 97 11/27/20 11:57 118 H 93 11/27/20 11:54 108 H 98 11/27/20 11:49 114 H 98 11/27/20 11:44 113 H 100 11/27/20 11:39 109 H 100 11/27/20 11:34 110 H 99 11/27/20 11:29 104 H 99 11/27/20 11:24 116 H 98 11/27/20 11:19 105 H 98 11/27/20 11:14 116 H 98 11/27/20 10:43 136 H 78 L 11/27/20 10:41 75 L 11/27/20 10:36 107 H 98 11/27/20 10:35 109 H 93 11/27/20 10:31 109 H 97 11/27/20 10:29 114 H 94 11/27/20 10:26 107 H 97 11/27/20 10:24 109 H 94 11/27/20 10:21 104 H 95 11/27/20 10:18 104 H 94 11/27/20 10:16 116 H 96 11/27/20 10:11 117 H 94 11/27/20 10:10 116 H 93 11/27/20 10:06 111 H 97 11/27/20 10:01 107 H 95 11/27/20 10:00 18 11/27/20 09:56 112 H 97 11/27/20 09:55 111 H 94 11/27/20 09:51 119 H 97 11/27/20 09:46 118 H 98 11/27/20 09:41 64 94 11/27/20 09:37 147 H 88 11/27/20 09:20 117 H 106/56 11/27/20 09:19 101 H 80 L 11/27/20 09:00 18 Intake and Output 11/27/20 11/28/20 11/28/20 23:59 07:59 15:59 Intake Total 440 270 Output Total 1650 725 Balance -1210 -455 Intake: Oral 440 270 Output: Urine 1650 725 Indwelling 475 Indwelling Catheter 1650 250 Other: Total, Intake Amount 440 100 Total, Output Amount 400 150 Estimated Blood Loss 500 - Exam Breasts: Present: normal Cardiovascular: Present: Regular rate Lungs: Present: Clear to auscultation, Normal air movement Abdomen: Present: normal appearance, soft Vulva: both: normal Uterus: Present: normal, firm, fundal height below umbilicus Extremities: Present: normal Deep Tendon Reflex Grade: Normal +2 Incision: Present: normal, dry, intact - Labs Labs: Abnormal lab results 11/27/20 11/27/20 11/27/20 Range/Units 10:50 18:21 22:22 WBC 23.5 H (4.5-11.0) K/mm3 MCHC 35 H (30-34) % RDW 15.5 H (13.2-15.2) % Seg Neuts % (Manual) 93.5 H (40.0-70.0) % Lymphocytes % (Manual) 5.0 L (13.4-35.0) % Seg Neutrophils # Man 22.0 H (1.8-7.7) K/mm3 Magnesium 3.90 H (1.7-2.3) mg/dL Urine WBC (Auto) > 182.0 H (0.0-6.0) /HPF U Epithel Cells (Auto) 27.0 H (0-13.0) /HPF
[2020-11-28] MEDS: FERROUS SULFATE 325 MG TAB PO SCH (09:00)
[2020-11-28] MEDS: PRENATAL VIT27-FE FUMARATE-FOLIC ACID VIT TAB PO SCH (09:00)
[2020-11-28] MEDS: HYDROcodone/ACETAMINOPHEN 5-325 MG TAB PO PRN ×2 (11:50→18:28)
--- NOTE | 2020-11-28 13:22 | Progress Note ---
Spinal Anesthesia Block - Spinal Anesthesia Block Start Time: 22:50 Stop Time: 22:53 Performed by:: DALE BILLINGS Procedure: Sitting, sterile chlorahexadine 0.5% prep/drape, 1% lidocaine skin local, 25G spinal needle + introducer at L3-4, + CSF, - Heme, [1.9 ml 0.5% bupivacaine + 10 mcg dexmedetomidine] injected, drape removed, patient positioned supine with left uterine displacement, and spinal level verified to be adequate prior to surgery.
--- NOTE | 2020-11-28 13:23 | Progress Note ---
Regional Anesthesia Block - Regional Anesthesia Block Start Time: 22:55 Stop Time: 23:00 Performed By:: DALE BILLINGS Procedure: U/S guided bilateral tap block performed for post-operative pain requested by Dr. Reyna. H&P & labs reviewed. Procedure explained, questions answered, consent obtained. Patient in the supine position with ekg, blood pressure cuff and pulse ox on and working in PACU. Timeout performed immediately before start of procedure. Probe placed in the mid-axillary line and the external oblique, internal oblique, and transverse abdominus muscles identified. Skin was cleansed with chlorahexadine 0.5% and allowed to dry. A 4" 20 G Barton echogenic needle was advanced in plane until the tip was in the fascial plane between the internal oblique and the transverse abdominus. After negative aspiration 35 ml/side of [30 ml 0.5% Bupivacaine], [10 mg dexamethasone], and [40 ml sterile saline] was injected in 5 ml increments with negative aspiration in between. Patient tolerated procedure well.
[2020-11-28 15:33] LABS: Hematocrit 29.6 % (30.3-42.9); Hemoglobin 10.1 gm/dl (10.1-14.3)
--- NOTE | 2020-11-28 19:56 | Post Anesthesia Evaluation ---
- Post Anesthesia Evaluation Patient Participated: Yes Airway Patent: Yes Stable Respiratory Function: Yes Nausea/Vomiting: No Temp > 96.8F: Yes Pain Manageable: Yes Adequeate Hydration: Yes Anesthesia Complications: No Block Receding Appropriately: Yes
[2020-11-28] MEDS: IBUPROFEN 800 MG TAB PO PRN (23:12)
[2020-11-29] MEDS ORDERED: MEASLES, MUMPS & RUBELLA 12,500 UNIT/0.5 ML VACCINE SUB-Q ONE (00:50)
[2020-11-29] MEDS ORDERED: TETANUS,DIPH,PERTUSS(ACELL) VACCINE 0.5 ML SYRINGE IM ONE (01:11)
[2020-11-29] MEDS: IBUPROFEN 800 MG TAB PO PRN ×2 (06:01→17:17)
--- NOTE | 2020-11-29 06:55 | Progress Note ---
Assessment and Plan - Patient Problems (1) delivery delivered Onset Date: ~11/28/20 Current Visit: Yes Status: Acute Plan to address problem: Pt denies any pain just states she is tired. VSS FF below umb Lochia scant Incision D&I H&H 04/20 stable Pt appears to be dealing with delivery well P: continue PP pathway Encourage pt to voice concerns Subjective - Subjective Date of service: 11/29/20 (pt's only c/o being tired) Principal diagnosis: postop day #2 s/p repeat c/s Patient reports: appetite normal, voiding normally, pain well controlled, ambulating normally : in NICU Objective - Vital Signs Latest vital signs: Vital Signs Temp Pulse Resp BP BP Pulse Ox 11/29/20 00:45 97.3 F L 103 H 20 96/61 11/28/20 20:50 97.5 F L 99 H 20 97/62 97 11/28/20 16:50 97.6 F 101 H 20 93/64 11/28/20 11:18 98.5 F 105 H 18 101/64 96 11/28/20 08:20 97.8 F 101 H 105/65 Intake and Output 11/28/20 11/28/20 11/29/20 14:59 22:59 06:59 Intake Total 650 640 360 Output Total 1000 400 Balance -350 240 360 Intake: IV 50 ANCEF/NS 1 GM/50 ML 1 gm 50 In 50 ml @ 100 mls/hr IV Q8H POPPY Rx#:[id number] Oral 600 540 360 Intake, Free Water 100 Output: Urine 1000 400 Indwelling Catheter 1000 400 Other: Total, Intake Amount 120 240 120 Total, Output Amount 200 400 # Voids Indwelling Catheter 1 1 1 # Bowel Movements 1 - Exam Breasts: Present: normal Cardiovascular: Present: Regular rate Lungs: Present: Clear to auscultation Abdomen: Present: normal appearance, soft, normal bowel sounds Uterus: Present: normal, firm, fundal height below umbilicus Extremities: Present: normal Deep Tendon Reflex Grade: Normal +2 Incision: Present: normal, dry, intact - Labs Labs: Abnormal lab results 11/28/20 Range/Units 14:52 Hct 29.6 L (30.3-42.9) %
[2020-11-29] MEDS: PRENATAL VIT27-FE FUMARATE-FOLIC ACID VIT TAB PO SCH (10:26)
[2020-11-29] MEDS: FERROUS SULFATE 325 MG TAB PO SCH (10:26)
[2020-11-29] MEDS: HYDROcodone/ACETAMINOPHEN 5-325 MG TAB PO PRN ×2 (10:28→22:58)
[2020-11-30] MEDS: IBUPROFEN 800 MG TAB PO PRN (00:38)
--- NOTE | 2020-11-30 08:40 | Discharge Summary ---
Providers - Providers Date of Admission: 11/14/20 18:25 Date of discharge: 11/30/20 (pt desires d/c home) Attending physician: HARLEY TAYLOR Primary care physician: HARLEY TAYLOR Hospitalization Reason for admission: IUP - , observation, labor Delivery: Procedure: section, bilateral tubal ligation, repeat low transverse Episiotomy: none Laceration: none Incision: intact Other procedures: none complications: none Discharge diagnosis: delivery [place] baby: female Condition at discharge: Good Disposition: DC-01 TO HOME OR SELFCARE - Discharge Diagnoses (1) Abnormal antibody titer Status: Acute (2) Body mass index (BMI) greater than 40 Status: Chronic (3) 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 Status: Chronic Qualifiers: Previous scar type: vertical uterine incision Plan - Discharge Medications Prescriptions: Ferrous Sulfate [Feosol 325 MG tab] 325 mg PO BID #60 tablet Ibuprofen [Motrin] 800 mg PO TID PRN #30 tablet PRN Reason: Pain oxyCODONE /ACETAMINOPHEN [Percocet 5/325 mg] 1 - 2 tab PO Q6HR PRN #20 tablet PRN Reason: Pain - Provider Discharge Summary Activity: routine, no sex for 6 weeks, no heavy lifting 4 weeks, no strenuous exercise Diet: routine Instructions: routine Additional instructions: [] Smoking cessation referral if applicable(refer to patient education folder for contact #) [] Refer to [facility]'s [facility] Booklet Call your doctor immediately for: * Fever > 100.5 * Heavy vaginal bleeding ( >1 pad per hour) * Severe persistent headache * Shortness of breath * Reddened, hot, painful area to leg or breast * Drainage or odor from incision. * Keep incision clean and dry at all times and follow doctor's instructions regarding bathing/showering Congratulations! Please call [phone] and make an appointment in 1 week to have your incision checked in the office. Please also make an appointment in 4 weeks for your visit. Thank you! - Follow up plan Follow up: HARLEY TAYLOR MD [Primary Care Provider] - 7 Days
[2020-11-30] MEDS: FERROUS SULFATE 325 MG TAB PO SCH (10:17)
[2020-11-30] MEDS: PRENATAL VIT27-FE FUMARATE-FOLIC ACID VIT TAB PO SCH (10:17)
[2020-11-30 14:26] VITALS: BP 124/84
== END 2020-11-30 16:57 | disposition home or self-care (01) | DRG 765 ==
LOC: TRG 18:06 → LD 18:07 → TRG 18:25 → LD 11-16 11:03 → OB 11-28 01:46
PROVIDERS: ADMIT Obstetrics & Gynecology; ATTEND Obstetrics & Gynecology
PROC: 10D00Z1 Extraction of Products of Conception, Low, Open Approach (ICD-10-PCS; principal; 2020-11-28)
PROC: 0UB70ZZ Excision of Bilateral Fallopian Tubes, Open Approach (ICD-10-PCS; 2020-11-28)
PROC: 3E0T3BZ Introduction of Anesthetic Agent into Peripheral Nerves and Plexi, Percutaneous Approach (ICD-10-PCS; 2020-11-28)
PROC: 3E0234Z Introduction of Serum, Toxoid and Vaccine into Muscle, Percutaneous Approach (ICD-10-PCS; 2020-11-29)
PROC: 3E0134Z Introduction of Serum, Toxoid and Vaccine into Subcutaneous Tissue, Percutaneous Approach (ICD-10-PCS; 2020-11-29)
DX: O34.211 Maternal care for low transverse scar from previous cesarean delivery (principal); O34.32 Maternal care for cervical incompetence, second trimester; O60.12X0 Preterm labor second trimester with preterm delivery second trimester, not applicable or unspecified; Z20.822 Contact with and (suspected) exposure to COVID-19; O99.214 Obesity complicating childbirth; R76.0 Raised antibody titer; O99.824 Streptococcus B carrier state complicating childbirth; O26.872 Cervical shortening, second trimester; Z37.0 Single live birth; Z3A.24 24 weeks gestation of pregnancy; Z79.899 Other long term (current) drug therapy; Z23 Encounter for immunization; Z30.2 Encounter for sterilization
CPT/HCPCS: 36415; 76816; 81001; 83735; 85007; 85014; 85018; 85025; 85027; 86592; 86850; 86870; 86886; 86900; 86901; 86922; 87086; 87116; 88302; 88305; 90471; 90715; 96360; 96372; 99211; G0378; C1765; G0463; J0290; J0690; J0702; J1100; J1200; J1885; J2370; J2765; J3105; J3475; J3490; J7120; J7121; U0003